=== PATIENT | male | born 1965 | race Caucasian/White ===

== ENCOUNTER 2021-03-10 14:18 | Inpatient (IN) | payer OTHER ==
[~2021-03-10] VITALS: Ht 177.8 cm; Wt 55.6 kg
[~2021-03-10 14:18] MED LIST: BISACODYL 10 MG SUPP (DULCOLAX) PR PRN; CALCIUM CARBONATE 500 MG (TUMS) TAB.CHEW PO PRN; FLEET ENEMA ADULT 1 EA BTL PR PRN; LACTULOSE SYRUP 10GM/15ML (ENULOSE) 30ML UDC PO PRN; LOPERAMIDE 2 MG (IMODIUM) TABLET PO PRN; MELATONIN 3 MG TABLET PO PRN; ONDANSETRON 4 MG (ZOFRAN) ORAL DISSOLVE TAB PO PRN; guaiFENesin/CODEINE (ROBITUSSIN AC) 10ML UDC PO PRN
[2021-03-10] MEDS ORDERED: TRM50T PO (14:26)
[2021-03-10] MEDS ORDERED: ZOLP5TAB PO (14:26)
[2021-03-10] MEDS ORDERED: OXC5T PO (14:26)
[2021-03-10] MEDS ORDERED: NSTR15C TOP (14:26)
[2021-03-10] MEDS ORDERED: MELA5TAB14 PO (14:26)
[2021-03-10 14:35] VITALS: BP 109/75
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
[2021-03-10] MEDS: polyethylene glycoL POWDER 17 GM (MIRALAX) PACK PO SCH ×2 (18:40→19:55)
[2021-03-10] MEDS: SENNA W/DOCUSATE (SENOKOT S) TABLET PO SCH ×2 (18:40→19:57)
[2021-03-10] MEDS: DOCUSATE SODIUM 100 MG (COLACE) CAP PO SCH ×2 (18:40→19:55)
[2021-03-10] MEDS: MELATONIN 10 MG TABLET PO SCH (19:55)
[2021-03-10] MEDS: BETAMETHASONE/CLOTRIM CREAM (LOTRISONE) 45 GM TP SCH (19:56)
[2021-03-10 20:03] VITALS: BP 113/79
[2021-03-11 06:13] LABS: BASOPHILS % (AUTO) 1 % (0-10); EOSINOPHILS # (AUTO) 0.2 10^3/uL (0.0-0.3); EOSINOPHILS % (AUTO) 3 % (0-10); HEMATOCRIT 34 % (40-54); HEMOGLOBIN 10.6 g/dL (13.3-17.7); LYMPHOCYTES # (AUTO) 1.6 10^3/uL (1.0-4.0); LYMPHOCYTES % (AUTO) 24 % (12-44); MEAN CORPUSCULAR HEMOGLOBIN 29 pg (25-34); MEAN CORPUSCULAR HGB CONC 31 g/dL (32-36); MEAN CORPUSCULAR VOLUME 93 fL (80-99); MEAN PLATELET VOLUME 10.2 fL (9.0-12.2); MONOCYTES # (AUTO) 0.7 10^3/uL (0.0-1.0); MONOCYTES % (AUTO) 11 % (0-12); NEUTROPHILS % (AUTO) 61 % (42-75); PLATELET COUNT 325 10^3/uL (130-400); WHITE BLOOD COUNT 6.5 10^3/uL (4.3-11.0)
[2021-03-11 06:28] LABS: ALBUMIN 3.3 GM/DL (3.2-4.5)
[2021-03-11 06:30] LABS: CALCIUM 9.5 MG/DL (8.5-10.1)
[2021-03-11 06:31] LABS: TOTAL PROTEIN 6.6 GM/DL (6.4-8.2)
[2021-03-11 06:33] LABS: BILIRUBIN,TOTAL 0.5 MG/DL (0.1-1.0)
[2021-03-11 06:35] LABS: CREATININE SERUM 0.64 MG/DL (0.60-1.30)
[2021-03-11 07:30] VITALS: BP 108/70
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
[2021-03-11] MEDS: BETAMETHASONE/CLOTRIM CREAM (LOTRISONE) 45 GM TP SCH ×2 (08:22→20:13)
[2021-03-11] MEDS: ENOXAPARIN 30 MG/0.3 ML (LOVENOX) SYR SC SCH (08:23)
[2021-03-11] MEDS: polyethylene glycoL POWDER 17 GM (MIRALAX) PACK PO SCH ×2 (09:00→21:00)
[2021-03-11] MEDS: DOCUSATE SODIUM 100 MG (COLACE) CAP PO SCH ×2 (09:00→21:00)
[2021-03-11] MEDS: SENNA W/DOCUSATE (SENOKOT S) TABLET PO SCH ×2 (09:00→21:00)
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
[2021-03-11 20:00] VITALS: BP 107/68
[2021-03-11] MEDS: MELATONIN 10 MG TABLET PO SCH (20:12)
[2021-03-11] MEDS: ZOLPIDEM 5 MG (AMBIEN) TAB PO PRN (20:12)
[2021-03-12] MEDS: ALPRAZolam 0.25 MG (XANAX) TAB PO PRN (03:31)
[2021-03-12 08:00] VITALS: BP 106/57
[2021-03-12] MEDS: DOCUSATE SODIUM 100 MG (COLACE) CAP PO SCH ×2 (08:35→20:48)
[2021-03-12] MEDS: ENOXAPARIN 30 MG/0.3 ML (LOVENOX) SYR SC SCH (08:35)
[2021-03-12] MEDS: polyethylene glycoL POWDER 17 GM (MIRALAX) PACK PO SCH ×2 (08:36→21:03)
[2021-03-12] MEDS: SENNA W/DOCUSATE (SENOKOT S) TABLET PO SCH ×2 (08:36→20:48)
[2021-03-12] MEDS: BETAMETHASONE/CLOTRIM CREAM (LOTRISONE) 45 GM TP SCH ×2 (08:37→20:49)
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
--- NOTE | 2021-03-12 12:55 | Physical Therapy Daily Note ---
PT Daily Note-Current Subjective Patient in bed pre tx, agrees to PT, states he doesn't have much pain right now. Will be co-treating with OT due to poor patient mobility, strength, endurance, complicated weight bearing status, coordinate UE and LE during activity, safety and reduce risk of falls. Appearance Patient in recliner post tx with nurse call, phone, tray, all needs met. Mental Status Patient Orientation: Person, Place, Situation Transfers SCALE: Activities may be completed with or without assistive devices. 9-Cthyaggjsw-nlxcyff completes the activity by him/herself with no assistance from a helper. 5-Set-up or Clean-up Assistance-helper sets up or cleans up; patient completes activity. [place] assists only prior to or following the activity. 4-Supervision or Touching Assistance-helper provides verbal cues and/or touching/steadying and/or contact guard assistance as patient completes activity. Assistance may be provided throughout the activity or intermittently. 3-Partial/Moderate Assistance-helper does LESS THAN HALF the effort. [place] lifts, holds or supports trunk or limbs, but provides less than half the effort. 2-Substantial/Maximal Assistance-helper does MORE THAN HALF the effort. [place] lifts or holds trunk or limbs and provides more than half the effort. 9-Ojkqqmcyh-zuuoja does ALL the effort. Patient does none of the effort to complete the activity. Or, the assistance of 2 or more helpers is required for the patient to complete the activity. If activity was not attempted, code reason: 7-Patient Refused. 9-Not Applicable-not attempted and the patient did not perform the activity before the current illness, exacerbation or injury. 10-Not Attempted due to Environmental Limitations-(lack of equipment, weather restraints, etc.). 88-Not Attempted due to Medical Conditions or Safety Concerns. Roll Left & Right (QC): 6 Lying to Sitting/Side of Bed(Q: 6 Sit to Stand (QC): 2 Chair/Bah-ty-[place]exie Xfer(QC): 2 Transfer to using a platform walker, it is very awkward. He is taken to the restroom for a sponge bath, needs to stand a couple of times (max assist) for pants don/doff. Then practice WC mobility. After getting back to his room performed a stand pivot with max assist to the recliner. Weight Bearing Right Lower Extremity: Right Weight Bearing/Tolerated Left Lower Extremity: Left Non Weight Bearing NWB LLE AND LUE; MAY WEIGHT-BEAR THROUGH ELBOW ON RUE. WBAT ON RLE. Wheelchair Training Does the Pt Use a Wheelchair?: Yes Wheel 50 ft with 2 turns (QC): 4 Wheel 150 ft (QC): 4 Type of Wheelchair: Manual 200', propels the WC backward using his right leg Treatments PT performed bed mobility and transfers, standing for dressing, WC mobility, safety and positioning during bathing, OT performed bathing, dressing, UE positioning and safety during activity Assessment Current Status: Poor Progress Patient is very limited on what he can do in rehab due to his weight bearing restrictions. PT Short Term Goals Short Term Goals Time Frame: Mar 25, 2021 Roll Left & Right: 6 Sit to lyin Lying to sitting on side of be: 6 Sit to stand: 4 Chair/edf-ov-wpfch transfer: 4 Toilet transfer: 4 Wheel 50ft w/2 turns: 4 Wheel 150 feet: 4 PT Assessment Nurse Practitioner Goals Mcc Goals PT Mcc Goals Time Frame: Apr 08, 2021 Roll Left & Right (QC): 6 Sit to Lying (QC): 6 Lying-Sitting on Side/Bed(QC): 6 Sit to Stand (QC): 6 Chair/Pdy-kw-Uazmi Xfer(QC): 6 Toilet Transfer (QC): 6 Car Transfer (QC): 6 Does the Patient Walk: No and Walking Goal NOT indicated Walk 10 feet (QC): 88 Walk 50ft with 2 Turns (QC): 88 Walk 150 ft (QC): 88 Walking 10ft on Uneven Surface: 88 1 Step (curb) (QC): 88 4 Steps (QC): 88 12 Steps (QC): 88 Picking up an Object (QC): 88 Wheel 50 feet with 2 turns (QC: 6 Type: Manual Wheel 150 feet: 6 PT Plan Problem List Problem List: Activity Tolerance, Functional Strength, Safety, Balance, Gait, Transfer, Bed Mobility, ROM Treatment/Plan Treatment Plan: Continue Plan of Care Treatment Plan: Bed Mobility, Education, Functional Activity Krystin, Functional Strength, Group Therapy, Gait, Safety, Therapeutic Exercise, Transfers Treatment Duration: Apr 08, 2021 Frequency: 6 times per week Estimated Hrs Per Day: 1.5 hours per day Patient and/or Family Agrees t: Yes Safety Risks/Education Patient Education: Transfer Techniques, Reviewed Precautions, Correct Positioning, W/C Management, Safety Issues Teaching Recipient: Patient Teaching Methods: Demonstration, Discussion Response to Teaching: Reinforcement Needed Time/GCodes Time In: 1100 Time Out: 1200 Total Billed Treatment Time: 60 Total Billed Treatment 1 visit FA 60' STONEY HOOPER PT Mar 12, 2021 12:55
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
--- NOTE | 2021-03-12 13:52 | Physical Therapy Daily Note ---
PT Daily Note-Current Subjective Patient in recliner pre tx, agrees to PT, has no complaints of pain. Appearance Patient in recliner post tx with nurse call, phone, tray, all needs met. Mental Status Patient Orientation: Person, Place, Situation Transfers SCALE: Activities may be completed with or without assistive devices. 2-Yrteimsxgq-oyjurju completes the activity by him/herself with no assistance from a helper. 5-Set-up or Clean-up Assistance-helper sets up or cleans up; patient completes activity. [place] assists only prior to or following the activity. 4-Supervision or Touching Assistance-helper provides verbal cues and/or bobbi whitney/steadying and/or contact guard assistance as patient completes activity. Assistance may be provided throughout the activity or intermittently. 3-Partial/Moderate Assistance-helper does LESS THAN HALF the effort. [place] lifts, holds or supports trunk or limbs, but provides less than half the effort. 2-Substantial/Maximal Assistance-helper does MORE THAN HALF the effort. [place] lifts or holds trunk or limbs and provides more than half the effort. 3-Qvvkcqoxx-agchqs does ALL the effort. Patient does none of the effort to complete the activity. Or, the assistance of 2 or more helpers is required for the patient to complete the activity. If activity was not attempted, code reason: 7-Patient Refused. 9-Not Applicable-not attempted and the patient did not perform the activity before the current illness, exacerbation or injury. 10-Not Attempted due to Environmental Limitations-(lack of equipment, weather restraints, etc.). 88-Not Attempted due to Medical Conditions or Safety Concerns. Weight Bearing Right Lower Extremity: Right Weight Bearing/Tolerated Left Lower Extremity: Left Non Weight Bearing NWB LLE AND LUE; MAY WEIGHT-BEAR THROUGH ELBOW ON RUE. WBAT ON RLE. Exercises Supine Ex: Ankle pumps (RLE only), Quad Set, Glut sets, Heel Slides (RLE only), Short Arc Quads, Straight leg raise (AAROM), Hip abd/add Supine Reps: 20 Seated Therapy Exercises: Long arc quads, Hip flexion Seated Reps: 20 right manual ankle stretching Treatments stretching/ROM Assessment Current Status: Fair Progress Patient has a right ankle plantarflexion contracture. PT Short Term Goals Short Term Goals Time Frame: Mar 25, 2021 Roll Left & Right: 6 Sit to lyin Lying to sitting on side of be: 6 Sit to stand: 4 Chair/kki-et-rzjuy transfer: 4 Toilet transfer: 4 Wheel 50ft w/2 turns: 4 Wheel 150 feet: 4 PT Environmental Technical Officer Goals Environmental Technical Officer Goals PT Longterm Goals Time Frame: Apr 08, 2021 Roll Left & Right (QC): 6 Sit to Lying (QC): 6 Lying-Sitting on Side/Bed(QC): 6 Sit to Stand (QC): 6 Chair/Ulr-qx-Xtdqz Xfer(QC): 6 Toilet Transfer (QC): 6 Car Transfer (QC): 6 Does the Patient Walk: No and Walking Goal NOT indicated Walk 10 feet (QC): 88 Walk 50ft with 2 Turns (QC): 88 Walk 150 ft (QC): 88 Walking 10ft on Uneven Surface: 88 1 Step (curb) (QC): 88 4 Steps (QC): 88 12 Steps (QC): 88 Picking up an Object (QC): 88 Wheel 50 feet with 2 turns (QC: 6 Type: Manual Wheel 150 feet: 6 PT Plan Problem List Problem List: Activity Tolerance, Functional Strength, Safety, Balance, Gait, Transfer, Bed Mobility, ROM Treatment/Plan Treatment Plan: Continue Plan of Care Treatment Plan: Bed Mobility, Education, Functional Activity Krystin, Functional Strength, Group Therapy, Gait, Safety, Therapeutic Exercise, Transfers Treatment Duration: Apr 08, 2021 Frequency: 6 times per week Estimated Hrs Per Day: 1.5 hours per day Patient and/or Family Agrees t: Yes Safety Risks/Education Patient Education: Correct Positioning, Safety Issues Teaching Recipient: Patient Teaching Methods: Demonstration, Discussion Response to Teaching: Reinforcement Needed Time/GCodes Time In: 1330 Time Out: 1400 Total Billed Treatment Time: 30 Total Billed Treatment 1 visit EX 30' STONEY HOOPER PT Mar 12, 2021 13:52
--- NOTE | 2021-03-12 15:54 | Diagnostic Imaging Report ---
INDICATION: Wound infection of the left stump. TIME OF EXAM: 02:50 p.m. FINDINGS: Two views of the left knee demonstrate intramedullary gucci and numerous screws transfixing the comminuted and impacted distal femur fracture. Hardware appears to be intact without fracture or loosening. There is also an obliquely oriented fracture of the proximal fibula. Proximal tibia appears intact. No joint effusion is identified. No soft tissue gas is identified. IMPRESSION: Postsurgical and post-traumatic changes to the left knee. Dictated by: Dictated on workstation # [id number]
--- NOTE | 2021-03-12 15:59 | Diagnostic Imaging Report ---
INDICATION: Wound infection of the left lower extremity stump. TIME OF EXAM: 2:45 p.m. FINDINGS: Frontal and lateral views of the left femur were obtained. Alignment at the left hip is normal. Alignment at the knee is normal. There is an intramedullary gucci with proximal distal screws present. Severely comminuted impacted distal femur fracture is seen. Alignment is near-anatomic. No other fractures are identified. IMPRESSION: Postoperative changes of ORIF involving comminuted distal femur fracture. Dictated by: Dictated on workstation # [id number]
--- NOTE | 2021-03-12 16:00 | Diagnostic Imaging Report ---
INDICATION: Wound infection of left stump. TIME OF EXAM: 2:51 PM 2 views left tibia and fibula were obtained. Alignment of the knee is normal. There are postoperative changes of ziefm-tic-lrft amputation. Resection margins appear to be smooth. No bony destructive changes are seen to suggest osteomyelitis. There is an obliquely oriented fracture of the proximal fibula. Hardware transfixes the comminuted impacted distal femur fracture. Multiple skin eneida at the stump are noted. IMPRESSION: Postop changes. No bony destructive changes are identified to suggest osteomyelitis. Dictated by: Dictated on workstation # [id number]
[2021-03-12] MEDS: DOXYCYCLINE 100 MG (VIBRAMYCIN) TABLET PO SCH (16:12)
[2021-03-12 20:15] VITALS: BP 104/70
[2021-03-12] MEDS: MELATONIN 10 MG TABLET PO SCH (20:48)
[2021-03-12] MEDS: MUPIROCIN 2% OINT 22 GM (BACTROBAN) TUBE TOP SCH (21:03)
[2021-03-13] MEDS: ZOLPIDEM 5 MG (AMBIEN) TAB PO PRN (00:02)
[2021-03-13] MEDS: ALPRAZolam 0.25 MG (XANAX) TAB PO PRN (04:19)
[2021-03-13] MEDS: DOXYCYCLINE 100 MG (VIBRAMYCIN) TABLET PO SCH ×2 (06:32→17:18)
[2021-03-13 08:00] VITALS: BP 98/67
[2021-03-13] MEDS: ENOXAPARIN 30 MG/0.3 ML (LOVENOX) SYR SC SCH (08:32)
[2021-03-13] MEDS: DOCUSATE SODIUM 100 MG (COLACE) CAP PO SCH ×2 (08:32→19:43)
[2021-03-13] MEDS: polyethylene glycoL POWDER 17 GM (MIRALAX) PACK PO SCH ×2 (08:32→19:43)
[2021-03-13] MEDS: SENNA W/DOCUSATE (SENOKOT S) TABLET PO SCH ×2 (08:32→19:43)
[2021-03-13] MEDS: MUPIROCIN 2% OINT 22 GM (BACTROBAN) TUBE TOP SCH ×2 (08:33→20:46)
[2021-03-13] MEDS: BETAMETHASONE/CLOTRIM CREAM (LOTRISONE) 45 GM TP SCH ×2 (08:33→20:10)
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
--- NOTE | 2021-03-13 11:25 | Occupational Ther Daily Note ---
OT Current Status-Daily Note Subjective Pt reports pain as 3/10, pain meds given prior to OT arrival. Appearance Pt left supine in bed, all needs within reach. Mental Status/Objective Patient Orientation: Person, Time, Situation ADL-Treatment Therapy Code Descriptions/Definitions Functional [place] Measure: 0=Not Assessed/NA 4=Minimal Assistance 1=Total Assistance 5=Supervision or Setup 2=Maximal Assistance 6=Modified [place] 3=Moderate Assistance 7=Complete IndependenceSCALE: Activities may be completed with or without assistive devices. 3-Logfdbqpso-nmwmvxx completes the activity by him/herself with no assistance from a helper. 5-Set-up or Clean-up Assistance-helper sets up or cleans up; patient completes activity. [place] assists only prior to or following the activity. 4-Supervision or Touching Assistance-helper provides verbal cues and/or touching/steadying and/or contact guard assistance as patient completes activity . Assistance may be provided throughout the activity or intermittently. 3-Partial/Moderate Assistance-helper does LESS THAN HALF the effort. [place] lifts, holds or supports trunk or limbs, but provides less than half the effort. 2-Substantial/Maximal Assistance-helper does MORE THAN HALF the effort. [place] lifts or holds trunk or limbs and provides more than half the effort. 3-Ujmrjvoai-mhmkcz does ALL the effort. Patient does none of the effort to complete the activity. Or, the assistance of 2 or more helpers is required for the patient to complete the activity. If activity was not attempted, code reason: 7-Patient Refused. 9-Not Applicable-not attempted and the patient did not perform the activity before the current illness, exacerbation or injury. 10-Not Attempted due to Environmental Limitations-(lack of equipment, weather restraints, etc.). 88-Not Attempted due to Medical Conditions or Safety Concerns. Bathing Location: L Upper Leg, R Upper Leg, Buttocks, Perineal Area Lower Body Dressing (QC): 4 On/Off Footwear: 3 Pt agreeable to practice donning/doffing clothing at bed level due to inability to stand and perform functional tasks without assist x2. OT introduced and instructed pt on use of city supervisor and sock aid for LB dressing. Post instruction pt was able to doff pants with use of city supervisor and extra time. Cues for preferred method to ease task. With extra time/effort he was able to thread RLE and L residual limb with use of city supervisor while in long sitting. Pt fatigues easily in long sitting and often requires trunk support on HOB bed. Verbal cues for sidel belle in order to manage clothing over hips. Post cues, pt able to perform with extra time. He sat EOB to don sock. Min-mod a to manage sock onto tool, pt able to manage over foot. Due to R knee pain, pt unable to flex knee or position correctly during functional tasks/transfers. Education OT Patient Education: Correct positioning, Disease process, Energy conservation, Instructions don/doff splint/brace, Modified ADL techniques, Progress toward Goal/Update tx plan, Purpose of tx/functional activities, Reviewed precautions, Rehab process, Safety issues, Transfer techniques, Use of adapted equipment, W/C management Teaching Recipient: Patient Teaching Methods: Demonstration Response to Teaching: Verbalize Understanding, Return Demonstration, Reinforcement Needed OT Short Term Goals Short Term Goals Time Frame: Mar 26, 2021 Eatin Oral hygiene: 4 Toileting hygiene: 3 Shower/bathe self: 3 Upper body dressin Lower body dressin Putting on/taking off footwear: 3 OT Halfway Goals Photographic Supervisor Goals Time Frame: Apr 06, 2021 Eating (QC): 6 Oral Hygiene (QC): 5 Toileting Hygiene (QC): 4 Shower/Bathe Self (QC): 4 Upper Body Dressing (QC): 5 Lower Body Dressing (QC): 4 On/Off Footwear (QC): 4 1=Demonstrate adherence to instructed precautions during ADL tasks. 2=Patient will verbalize/demonstrate understanding of assistive devices/modifications for ADL. 3=Patient will improve strength/tolerance for activity to enable patient to perform ADL's. OT Education/Plan Problem List/Assessment Assessment: Decreased Activ Tolerance, Decreased Safety Aware, Decreased UE Strength, Dependent Transfers, Impaired Coordination, Impaired Funct Balance, Impaired I ADL's, Impaired Self-Care Skills, Restricted Funct UE ROM Discharge Recommendations Plan/Recommendations: Continue POC Treatment Plan/Plan of Care Treatment,Training & Education: Yes Patient would benefit from OT for education, treatment and training to promote independence in ADL's, mobility, safety and/or upper extremity function for ADL's. Plan of Care: ADL Retraining, Functional Mobility, Group Exercise/Act as Ind, Orthotic Fitting/Training, UE Funct Exercise/Act, W/C Management Training Treatment Duration: Apr 06, 2021 Frequency: At least 5 of 7 days/Wk (IRF) Estimated Hrs Per Day: 1.5 hours per day Agreement: Yes Rehab Potential: Fair Time/GCodes Start Time: 09:00 Stop Time: 09:40 Total Time Billed (hr/min): 40 Billed Treatment Time 1 visit, ADLs x3 Rukhsana Anderson OT Mar 13, 2021 11:25
--- NOTE | 2021-03-13 11:43 | Physical Therapy Daily Note ---
PT Daily Note-Current Subjective Patient in bed pre tx, agrees to PT, has 4/10 pain and requests pain meds, nurse notified and he got pain meds. Will be co-treating with OT for part of tx due to poor patient mobility, strength, endurance, complicated weight bearing status, coordinate UE and LE during activity, safety and reduce risk of falls. Appearance Patient in recliner post tx with nurse call, phone, tray, all needs met. Mental Status Patient Orientation: Person, Place, Situation Transfers SCALE: Activities may be completed with or without assistive devices. 1-Nncfmhvbsi-xtvtehf completes the activity by him/herself with no assistance from a helper. 5-Set-up or Clean-up Assistance-helper sets up or cleans up; patient completes activity. [place] assists only prior to or following the activity. 4-Supervision or Touching Assistance-helper provides verbal cues and/or touching/steadying and/or contact guard assistance as patient completes activity. Assistance may be provided throughout the activity or intermittently. 3-Partial/Moderate Assistance-helper does LESS THAN HALF the effort. [place] lifts, holds or supports trunk or limbs, but provides less than half the effort. 2-Substantial/Maximal Assistance-helper does MORE THAN HALF the effort. [place] lifts or holds trunk or limbs and provides more than half the effort. 5-Vchreplhk-tkxzib does ALL the effort. Patient does none of the effort to complete the activity. Or, the assistance of 2 or more helpers is required for the patient to complete the activity. If activity was not attempted, code reason: 7-Patient Refused. 9-Not Applicable-not attempted and the patient did not perform the activity before the current illness, exacerbation or injury. 10-Not Attempted due to Environmental Limitations-(lack of equipment, weather restraints, etc.). 88-Not Attempted due to Medical Conditions or Safety Concerns. Roll Left & Right (QC): 6 Lying to Sitting/Side of Bed(Q: 6 Sit to Stand (QC): 2 Chair/Ues-jt-Odomd Xfer(QC): 2 Weight Bearing Right Lower Extremity: Right Weight Bearing/Tolerated Left Lower Extremity: Left Non Weight Bearing NWB LLE AND LUE; MAY WEIGHT-BEAR THROUGH ELBOW ON RUE. WBAT ON RLE. Wheelchair Training Does the Pt Use a Wheelchair?: Yes Wheel 50 ft with 2 turns (QC): 4 Type of Wheelchair: Manual 120'x2, SBA, cues for obstacles, patient propels WC backward using his right leg. Exercises sit to stand x3 in parallel bars (not using arms), patient was able to stand on right leg with assist for about 30 sec each time. Patient is not able to stand up straight due to strength and he has a right ankle plantarflexion contracture. Patient is also not able to bend his right knee past about 80 degrees, he seems to have pretty tight quads now. Attempted to stand from the outside of the parallel bars using his right elbow for support but he couldn't do it. Also performed 3 sets of 10 of manually resisted right side leg press. Treatments PT performed bed mobility and transfers, standing, LE strengthening, OT performed UE positioning and safety during activity. Assessment Current Status: Poor Progress Patient really has no way to stand without somebody physically lifting him, he cannot use a slide board due to his UE weight bearing restrictions, he cannot use a standing frame due to his right knee pain with flexion, he cannot use a sit to stand machine because it squeezes his torso and he has a rib fx. PT Short Term Goals Short Term Goals Time Frame: Mar 25, 2021 Roll Left & Right: 6 Sit to lyin Lying to sitting on side of be: 6 Sit to stand: 4 Chair/dot-ma-phphi transfer: 4 Toilet transfer: 4 Wheel 50ft w/2 turns: 4 Wheel 150 feet: 4 PT Correction Goals Administrative Support Clerk Goals PT Administrative Support Clerk Goals Time Frame: Apr 08, 2021 Roll Left & Right (QC): 6 Sit to Lying (QC): 6 Lying-Sitting on Side/Bed(QC): 6 Sit to Stand (QC): 6 Chair/Dtj-td-Ktpsi Xfer(QC): 6 Toilet Transfer (QC): 6 Car Transfer (QC): 6 Does the Patient Walk: No and Walking Goal NOT indicated Walk 10 feet (QC): 88 Walk 50ft with 2 Turns (QC): 88 Walk 150 ft (QC): 88 Walking 10ft on Uneven Surface: 88 1 Step (curb) (QC): 88 4 Steps (QC): 88 12 Steps (QC): 88 Picking up an Object (QC): 88 Wheel 50 feet with 2 turns (QC: 6 Type: Manual Wheel 150 feet: 6 PT Plan Problem List Problem List: Activity Tolerance, Functional Strength, Safety, Balance, Gait, Transfer, Bed Mobility, ROM Treatment/Plan Treatment Plan: Continue Plan of Care Treatment Plan: Bed Mobility, Education, Functional Activity Krystin, Functional Strength, Group Therapy, Gait, Safety, Therapeutic Exercise, Transfers Treatment Duration: Apr 08, 2021 Frequency: 6 times per week Estimated Hrs Per Day: 1.5 hours per day Patient and/or Family Agrees t: Yes Safety Risks/Education Patient Education: Transfer Techniques, Reviewed Precautions, Correct Posit ioning, W/C Management, Safety Issues Teaching Recipient: Patient Teaching Methods: Demonstration, Discussion Response to Teaching: Reinforcement Needed Time/GCodes Time In: 1030 Time Out: 1115 Total Billed Treatment Time: 45 Total Billed Treatment 1 visit FA 45' co-treated from [id number], 24' STONEY HOOPER PT Mar 13, 2021 11:43
--- NOTE | 2021-03-13 11:54 | Occupational Ther Daily Note ---
OT Current Status-Daily Note Subjective Pt reports pain as 6/10 and states that meds were given just prior to OT arrival. Appearance Pt left with physical therapist in w/c. ADL-Treatment Therapy Code Descriptions/Definitions Functional [place] Measure: 0=Not Assessed/NA 4=Minimal Assistance 1=Total Assistance 5=Supervision or Setup 2=Maximal Assistance 6=Modified [place] 3=Moderate Assistance 7=Complete IndependenceSCALE: Activities may be completed with or without assistive devices. 6-Hpmitrrmpy-dluzchu completes the activity by him/herself with no assistance from a helper. 5-Set-up or Clean-up Assistance-helper sets up or cleans up; patient completes activity. [place] assists only prior to or following the activity. 4-Supervision or Touching Assistance-helper provides verbal cues and/or touching/steadying and/or contact guard assistance as patient completes activity. Assistance may be provided throughout the activity or intermittently. 3-Partial/Moderate Assistance-helper does LESS THAN HALF the effort. [place] lifts, holds or supports trunk or limbs, but provides less than half the effort. 2-Substantial/Maximal Assistance-helper does MORE THAN HALF the effort. [place] lifts or holds trunk or limbs and provides more than half the effort. 7-Xhjtwaslb-xlghcj does ALL the effort. Patient does none of the effort to complete the activity. Or, the assistance of 2 or more helpers is required for the patient to complete the activity. If activity was not attempted, code reason: 7-Patient Refused. 9-Not Applicable-not attempted and the patient did not perform the activity before the current illness, exacerbation or injury. 10-Not Attempted due to Environmental Limitations-(lack of equipment, weather restraints, etc.). 88-Not Attempted due to Medical Conditions or Safety Concerns. Other Treatment NWB LLE AND LUE; MAY WEIGHT-BEAR THROUGH ELBOW ON RUE. WBAT ON RLE. Co treat with physical therapy due to poor patient mobility, strength, e ndurance, complicated weight bearing status, coordination of UE and LE during activity, safety and high fall risk. Attempt at finding ways to stand while maintaining all WB restrictions. At this time, pt is unable to flex R knee enough to position properly for standing and is unable to stand without dep/max transfer. He is unable to use slide board due to UE WB restrictions and cannot use standing frame due to R knee pain with flexion. Attempted to stand from the outside of the parallel bars using his right elbow for support but pt was unable to perform due to pain. Focus remaining time on LE strengthening/stretching. Education OT Patient Education: Correct positioning, Disease process, Modified ADL techniques, Purpose of tx/functional activities, Reviewed precautions, Safety issues, Transfer techniques, W/C management Teaching Recipient: Patient Teaching Methods: Demonstration, Discussion Response to Teaching: Reinforcement Needed OT Short Term Goals Short Term Goals Time Frame: Mar 26, 2021 Eatin Oral hygiene: 4 Toileting hygiene: 3 Shower/bathe self: 3 Upper body dressin Lower body dressin Putting on/taking off footwear: 3 OT Chcf Goals Zoning Assistant Goals Time Frame: Apr 06, 2021 Eating (QC): 6 Oral Hygiene (QC): 5 Toileting Hygiene (QC): 4 Shower/Bathe Self (QC): 4 Upper Body Dressing (QC): 5 Lower Body Dressing (QC): 4 On/Off Footwear (QC): 4 1=Demonstrate adherence to instructed precautions during ADL tasks. 2=Patient will verbalize/demonstrate understanding of assistive devices/modifications for ADL. 3=Patient will improve strength/tolerance for activity to enable patient to perform ADL's. OT Education/Plan Problem List/Assessment Assessment: Decreased Activ Tolerance, Decreased Safety Aware, Decreased UE St rength, Dependent Transfers, Impaired Coordination, Impaired Funct Balance, Impaired I ADL's, Impaired Self-Care Skills, Restricted Funct UE ROM Discharge Recommendations Plan/Recommendations: Continue POC Therapy Discharge Recommendati: Post Acute OT Treatment Plan/Plan of Care Treatment,Training & Education: Yes Patient would benefit from OT for education, treatment and training to promote independence in ADL's, mobility, safety and/or upper extremity function for ADL's. Plan of Care: ADL Retraining, Functional Mobility, Group Exercise/Act as Ind, Orthotic Fitting/Training, UE Funct Exercise/Act, W/C Management Training Treatment Duration: Apr 06, 2021 Frequency: At least 5 of 7 days/Wk (IRF) Estimated Hrs Per Day: 1.5 hours per day Agreement: Yes Rehab Potential: Fair Time/GCodes Start Time: 10:40 Stop Time: 11:04 Total Time Billed (hr/min): 24 Billed Treatment Time 1 visit Rukhsana Calles OT Mar 13, 2021 11:54
--- NOTE | 2021-03-13 15:04 | Therapy Group Daily Note ---
Therapy Daily Group Note Patient Education Topic Other List Below (memory, ARU description/expectations) Exercises LE Seated Exercise, UE Exercise Session Ratio (pt:therapist): 4:1 Goal of Session: Education on ARU Expectations, Memory Strategies, UE/LE Strengthing Goal Met for this Session: Yes Pt Benefit of Group: Contributions to Others, F/U Use of Strategies @Home, Increased Functional Safety, Increased Functional Strength, Improved Cognition, Recognition of Peers, Socialization Other/Notes Pt transported via w/c to [facility] for OT/PT group. Group consisted of introductions (name, place living, favorite holiday), socialization, B UE/LE seated exercises, memory activity and education on memory strategies. Pt introduced self appropriately and actively listened to peers. Pt participated in group discussions and contributed to educational topic verbally/gestures. Pt acknowledge understanding of educational topics by giving personal strategies used. Pt able to complete memory activity matching game with 100% accuracy. After group, pt lying in bed with call light/phone in reach. All needs met in room. Start Time: 13:30 Stop Time: 14:50 Total Billed Treatment Time: 80 Total Billed Treatment 1-GRP DIMITRI LONDONO Mar 13, 2021 15:03
[2021-03-13 19:53] VITALS: BP 111/63
[2021-03-13] MEDS: MELATONIN 10 MG TABLET PO SCH (20:09)
[2021-03-14] MEDS: ALPRAZolam 0.25 MG (XANAX) TAB PO PRN (01:56)
[2021-03-14] MEDS: diphenhydrAMINE 25 MG TAB (BENADRYL) PO PRN (01:56)
[2021-03-14] MEDS: DOXYCYCLINE 100 MG (VIBRAMYCIN) TABLET PO SCH ×2 (06:01→16:06)
[2021-03-14 08:00] VITALS: BP 107/61
[2021-03-14] MEDS: polyethylene glycoL POWDER 17 GM (MIRALAX) PACK PO SCH ×2 (09:13→20:35)
[2021-03-14] MEDS: DOCUSATE SODIUM 100 MG (COLACE) CAP PO SCH ×2 (09:13→20:35)
[2021-03-14] MEDS: SENNA W/DOCUSATE (SENOKOT S) TABLET PO SCH ×2 (09:13→20:35)
[2021-03-14] MEDS: ENOXAPARIN 30 MG/0.3 ML (LOVENOX) SYR SC SCH (09:13)
[2021-03-14] MEDS: BETAMETHASONE/CLOTRIM CREAM (LOTRISONE) 45 GM TP SCH ×2 (09:18→20:32)
[2021-03-14] MEDS: MUPIROCIN 2% OINT 22 GM (BACTROBAN) TUBE TOP SCH ×2 (09:18→20:35)
[2021-03-14] MEDS: NICOTINE 21 MG (NICODERM) PATCH TD SCH (11:04)
--- NOTE | 2021-03-14 11:16 | Occupational Ther Daily Note ---
OT Current Status-Daily Note Subjective Pt reports better sleep, agreeable to treatment. Appearance Pt left supine in bed, all needs within reach. Mental Status/Objective Patient Orientation: Person, Situation ADL-Treatment Therapy Code Descriptions/Definitions Functional [place] Measure: 0=Not Assessed/NA 4=Minimal Assistance 1=Total Assistance 5=Supervision or Setup 2=Maximal Assistance 6=Modified [place] 3=Moderate Assistance 7=Complete IndependenceSCALE: Activities may be completed with or without assistive devices. 9-Ohspyahphw-sgsnhrg completes the activity by him/herself with no assistance from a helper. 5-Set-up or Clean-up Assistance-helper sets up or cleans up; patient completes activity. [place] assists only prior to or following the activity. 4-Supervision or Touching Assistance-helper provides verbal cues and/or touching/steadying and/or contact guard assistance as patient completes activity. Assistance may be provided throughout the activity or intermittently. 3-Partial/Moderate Assistance-helper does LESS THAN HALF the effort. [place] lifts, holds or supports trunk or limbs, but provides less than half the effort. 2-Substantial/Maximal Assistance-helper does MORE THAN HALF the effort. [place] lifts or holds trunk or limbs and provides more than half the effort. 6-Ktzlljizz-obrroy does ALL the effort. Patient does none of the effort to complete the activity. Or, the assistance of 2 or more helpers is required for the patient to complete the activity. If activity was not attempted, code reason: 7-Patient Refused. 9-Not Applicable-not attempted and the patient did not perform the activity before the current illness, exacerbation or injury. 10-Not Attempted due to Environmental Limitations-(lack of equipment, weather restraints, etc.). 88-Not Attempted due to Medical Conditions or Safety Concerns. OT to discuss with physician on bathing and if there are any restrictions. Pt would like to shower tomorrow if possible. Other Treatment Co treat with physical therapy due to poor patient mobility, strength, endurance, complicated weight bearing status, coordination of UE and LE during activity, safety and high fall risk. OT/PT Continue to Address ways to stand while maintaining all WB restrictions. At this time, pt is unable to flex R knee enough to position properly for standing and is unable to stand without max a. He is unable to use slide board due to UE WB restrictions and cannot use standing frame due to R knee pain with flexion. Attempt at squat pivot towards R side with pt using R elbow on far armrest of w/c. Min A x2 for safety with this method. More education/practice will be needed if this method is preferred. Pt participated in both UE/LE strengthening/AROM exercises. No resistance added to UE's secondary to being NWB. Elbow flexion LUE impaired, contracture?. Pt stood x3 with mod-max a from heightened surface. Goal to increase standing time with each bout. Standing times included: 0:15, 0:40, and 1:22. Heavy reliance on weightbearing through R elbow on platform walker when standing. Pt propelled w/c with use of RLE, min cues for w/c management/safety. Education OT Patient Education: Correct positioning, Disease process, Energy conservation, Exercise program, Modified ADL techniques, Progress toward Goal/Update tx plan, Purpose of tx/functional activities, Reviewed precautions, Rehab process, Safety issues, Transfer techniques, Use of adapted equipment, W/C management Teaching Recipient: Patient Teaching Methods: Demonstration, Discussion Response to Teaching: Verbalize Understanding, Return Demonstration, Reinforcement Needed OT Short Term Goals Short Term Goals Time Frame: Mar 26, 2021 Eatin Oral hygiene: 4 Toileting hygiene: 3 Shower/bathe self: 3 Upper body dressin Lower body dressin Putting on/taking off footwear: 3 OT Chcf Goals Upsetter Helper Goals Time Frame: Apr 06, 2021 Eating (QC): 6 Oral Hygiene (QC): 5 Toileting Hygiene (QC): 4 Shower/Bathe Self (QC): 4 Upper Body Dressing (QC): 5 Lower Body Dressing (QC): 4 On/Off Footwear (QC): 4 1=Demonstrate adherence to instructed precautions during ADL tasks. 2=Patient will verbalize/demonstrate understanding of assistive devices/modifications for ADL. 3=Patient will improve strength/tolerance for activity to enable patient to perform ADL's. OT Education/Plan Problem List/Assessment Assessment: Decreased Activ Tolerance, Decreased Safety Aware, Decreased UE Strength, Dependent Transfers, Impaired Coordination, Impaired Funct Balance, Impaired I ADL's, Impaired Self-Care Skills, Restricted Funct UE ROM Discharge Recommendations Plan/Recommendations: Continue POC Treatment Plan/Plan of Care Treatment,Training & Education: Yes Patient would benefit from OT for education, treatment and training to promote independence in ADL's, mobility, safety and/or upper extremity function for ADL's. Plan of Care: ADL Retraining, Functional Mobility, Group Exercise/Act as Ind, Orthotic Fitting/Training, UE Funct Exercise/Act, W/C Management Training Treatment Duration: Apr 06, 2021 Frequency: At least 5 of 7 days/Wk (IRF) Estimated Hrs Per Day: 1.5 hours per day Agreement: Yes Rehab Potential: Fair Time/GCodes Start Time: 10:00 Stop Time: 11:00 Total Time Billed (hr/min): 60 Billed Treatment Time 1 visit, FA x3 (40 min) EX (20min) Rukhsana Anderson OT Mar 14, 2021 11:16
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
--- NOTE | 2021-03-14 11:52 | Physical Therapy Daily Note ---
PT Daily Note-Current Subjective Patient sitting EOB pre tx, agrees to PT, has no complaints of pain. Will be co-treating with OT due to poor patient mobility, strength, endurance, complicated weight bearing status, coordinate UE and LE during activity, safety and reduce risk of falls. Appearance Patient in bed post tx with nurse call, phone, tray, all needs met. Mental Status Patient Orientation: Person, Place, Situation Transfers SCALE: Activities may be completed with or without assistive devices. 0-Ssbseetehq-qesvclm completes the activity by him/herself with no assistance from a helper. 5-Set-up or Clean-up Assistance-helper sets up or cleans up; patient completes activity. [place] assists only prior to or following the activity. 4-Supervision or Touching Assistance-helper provides verbal cues and/or touching/steadying and/or contact guard assistance as patient completes activi ty. Assistance may be provided throughout the activity or intermittently. 3-Partial/Moderate Assistance-helper does LESS THAN HALF the effort. [place] lifts, holds or supports trunk or limbs, but provides less than half the effort. 2-Substantial/Maximal Assistance-helper does MORE THAN HALF the effort. [place] lifts or holds trunk or limbs and provides more than half the effort. 9-Cktgrevds-bjxgxu does ALL the effort. Patient does none of the effort to complete the activity. Or, the assistance of 2 or more helpers is required for the patient to complete the activity. If activity was not attempted, code reason: 7-Patient Refused. 9-Not Applicable-not attempted and the patient did not perform the activity before the current illness, exacerbation or injury. 10-Not Attempted due to Environmental Limitations-(lack of equipment, weather restraints, etc.). 88-Not Attempted due to Medical Conditions or Safety Concerns. Sit to Stand (QC): 2 Chair/Vns-hc-Bovfp Xfer(QC): 2 Patient practiced sit to stand from a raised therapy table using a platform walker. Patient is able to bear weight on his right elbow, he used this and his right leg to stand (min assist) x3, patient was able to stand for about 40 seconds the first two times and 1 minute 40 seconds the last time. Patient had good weight bearing on right leg to stretch his ankle contracture. Patient transferred back to with a modified stand pivot transfer using his right elbow on the far WC armrest, he was pretty unsteady doing this and needed min assist. He was going from an elevated surface to a lower surface. He would not be able to do it from a low to high surface or even surfaces at the same height. Weight Bearing Right Lower Extremity: Right Weight Bearing/Tolerated Left Lower Extremity: Left Non Weight Bearing NWB LLE AND LUE; MAY WEIGHT-BEAR THROUGH ELBOW ON RUE. WBAT ON RLE. Wheelchair Training Does the Pt Use a Wheelchair?: Yes Wheel 50 ft with 2 turns (QC): 4 Wheel 150 ft (QC): 4 Type of Wheelchair: Manual 200'x2, patient pushes WC backward using right leg Exercises LAQ alternating for 5 min Treatments PT performed transfers, standing, WC mobility, LE strengthening and stretching, OT performed UE exercise, UE positioning and safety during activity. Assessment Current Status: Fair Progress slight improvement with sit to stand PT Short Term Goals Short Term Goals Time Frame: Mar 25, 2021 Roll Left & Right: 6 Sit to lyin Lying to sitting on side of be: 6 Sit to stand: 4 Chair/mvg-cj-altcs transfer: 4 Toilet transfer: 4 Wheel 50ft w/2 turns: 4 Wheel 150 feet: 4 PT Parent Partner Goals Long-Term Goals PT Parent Partner Goals Time Frame: Apr 08, 2021 Roll Left & Right (QC): 6 Sit to Lying (QC): 6 Lying-Sitting on Side/Bed(QC): 6 Sit to Stand (QC): 6 Chair/Kta-lq-Rvihq Xfer(QC): 6 Toilet Transfer (QC): 6 Car Transfer (QC): 6 Does the Patient Walk: No and Walking Goal NOT indicated Walk 10 feet (QC): 88 Walk 50ft with 2 Turns (QC): 88 Walk 150 ft (QC): 88 Walking 10ft on Uneven Surface: 88 1 Step (curb) (QC): 88 4 Steps (QC): 88 12 Steps (QC): 88 Picking up an Object (QC): 88 Wheel 50 feet with 2 turns (QC: 6 Type: Manual Wheel 150 feet: 6 PT Plan Problem List Problem List: Activity Tolerance, Functional Strength, Safety, Balance, Gait, Transfer, Bed Mobility, ROM Treatment/Plan Treatment Plan: Continue Plan of Care Treatment Plan: Bed Mobility, Education, Functional Activity Krystin, Functional Strength, Group Therapy, Gait, Safety, Therapeutic Exercise, Transfers Treatment Duration: Apr 08, 2021 Frequency: 6 times per week Estimated Hrs Per Day: 1.5 hours per day Patient and/or Family Agrees t: Yes Safety Risks/Education Patient Education: Transfer Techniques, Reviewed Precautions, Correct Positioning, W/C Management, Safety Issues Teaching Recipient: Patient Teaching Methods: Demonstration, Discussion Response to Teaching: Reinforcement Needed Time/GCodes Time In: 1000 Time Out: 1100 Total Billed Treatment Time: 60 Total Billed Treatment 1 visit EX 30' FA 30' co-treated for 60' STONEY HOOPER PT Mar 14, 2021 11:52
[2021-03-14] MEDS: DICLOFENAC 1% GEL 100 GM (VOLTAREN) TUBE TOP SCH ×2 (12:23→20:38)
--- NOTE | 2021-03-14 14:01 | Physical Therapy Daily Note ---
PT Daily Note-Current Subjective Pt in bed upon arrival and agrees to co-treat. co treat required d/t pt poor mobility, weakness, low activity tolerance, safety, and reduce risk of falls. Mental Status Patient Orientation: Person, Place, Situation Transfers SCALE: Activities may be completed with or without assistive devices. 4-Ockiqakzfo-hspsjko completes the activity by him/herself with no assistance from a helper. 5-Set-up or Clean-up Assistance-helper sets up or cleans up; patient completes activity. [place] assists only prior to or following the activity. 4-Supervision or Touching Assistance-helper provides verbal cues and/or touching/steadying and/or contact guard assistance as patient completes activity. Assistance may be provided throughout the activity or intermittently. 3-Partial/Moderate Assistance-helper does LESS THAN HALF the effort. [place] lifts, holds or supports trunk or limbs, but provides less than half the effort. 2-Substantial/Maximal Assistance-helper does MORE THAN HALF the effort. [place] lifts or holds trunk or limbs and provides more than half the effort. 0-Apmbuvtyz-kvweiz does ALL the effort. Patient does none of the effort to complete the activity. Or, the assistance of 2 or more helpers is required for the patient to complete the activity. If activity was not attempted, code reason: 7-Patient Refused. 9-Not Applicable-not attempted and the patient did not perform the activity before the current illness, exacerbation or injury. 10-Not Attempted due to Environmental Limitations-(lack of equipment, weather restraints, etc.). 88-Not Attempted due to Medical Conditions or Safety Concerns. Sit to Lying (QC): 5 Lying to Sitting/Side of Bed(Q: 5 Weight Bearing Right Lower Extremity: Right Weight Bearing/Tolerated Left Lower Extremity: Left Non Weight Bearing NWB LLE AND LUE; MAY WEIGHT-BEAR THROUGH ELBOW ON RUE. WBAT ON RLE. Exercises Seated Therapy Exercises: Biceps, Ankle pumps, Long arc quads, Hip flexion, Hip abd/add, Tricep Seated Reps: 10 Treatments Co-treat: OT focused on UE strengthening, positioning, and ROM. PT focused on LE strengthening/positioning/ROM, mobility, and sitting balance. Pt supine to sit and completes seated ex EOB, performing LE ex followed by UE ex w/ rest breaks as needed. Pt then completes sitting balance activity, weight shifting side to side while reaching w/ BUE to catch/throw ball. Pt then issued HEP for UE and LE ex, PT/OT explains/demonstrates ex to pt. Pt sit to supine and was left with all needs met, call light in hand. Assessment Current Status: Fair Progress Pt requires frequent rest breaks throughout tx. Pt overall increasing mobility, endurance, and strength PT Short Term Goals Short Term Goals Time Frame: Mar 25, 2021 Roll Left & Right: 6 Sit to lyin Lying to sitting on side of be: 6 Sit to stand: 4 Chair/nuc-cv-jeygn transfer: 4 Toilet transfer: 4 Wheel 50ft w/2 turns: 4 Wheel 150 feet: 4 PT [facility] Goals [facility] Goals PT [place] Program Coordinator Goals Time Frame: Apr 08, 2021 Roll Left & Right (QC): 6 Sit to Lying (QC): 6 Lying-Sitting on Side/Bed(QC): 6 Sit to Stand (QC): 6 Chair/Xcu-iu-Ngshp Xfer(QC): 6 Toilet Transfer (QC): 6 Car Transfer (QC): 6 Does the Patient Walk: No and Walking Goal NOT indicated Walk 10 feet (QC): 88 Walk 50ft with 2 Turns (QC): 88 Walk 150 ft (QC): 88 Walking 10ft on Uneven Surface: 88 1 Step (curb) (QC): 88 4 Steps (QC): 88 12 Steps (QC): 88 Picking up an Object (QC): 88 Wheel 50 feet with 2 turns (QC: 6 Type: Manual Wheel 150 feet: 6 PT Plan Treatment/Plan Treatment Plan: Continue Plan of Care Treatment Plan: Bed Mobility, Education, Functional Activity Krystin, Functional Strength, Group Therapy, Gait, Safety, Therapeutic Exercise, Transfers Treatment Duration: Apr 08, 2021 Frequency: 6 times per week Estimated Hrs Per Day: 1.5 hours per day Patient and/or Family Agrees t: Yes Time/GCodes Time In: 1330 Time Out: 1400 Total Billed Treatment Time: 30 Total Billed Treatment 1, Ex, NORI BURTON X RAY TECH Mar 14, 2021 14:01
--- NOTE | 2021-03-14 14:16 | Occupational Ther Daily Note ---
OT Current Status-Daily Note Subjective Pt. alert in bed. Pt. agrees to therapy. 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 4-Vlryirazvk-vcrhmwe completes the activity by him/herself with no assistance from a helper. 5-Set-up or Clean-up Assistance-helper sets up or cleans up; patient completes activity. [place] assists only prior to or following the activity. 4-Supervision or Touching Assistance-helper provides verbal cues and/or touching/steadying and/or contact guard assistance as patient completes activity. Assistance may be provided throughout the activity or intermittently. 3-Partial/Moderate Assistance-helper does LESS THAN HALF the effort. [place] lifts, holds or supports trunk or limbs, but provides less than half the effort. 2-Substantial/Maximal Assistance-helper does MORE THAN HALF the effort. [place] lifts or holds trunk or limbs and provides more than half the effort. 3-Zxiaiisxj-afyhzm does ALL the effort. Patient does none of the effort to complete the activity. Or, the assistance of 2 or more helpers is required for the patient to complete the activity. If activity was not attempted, code reason: 7-Patient Refused. 9-Not Applicable-not attempted and the patient did not perform the activity before the current illness, exacerbation or injury. 10-Not Attempted due to Environmental Limitations-(lack of equipment, weather restraints, etc.). 88-Not Attempted due to Medical Conditions or Safety Concerns. Other Treatment Co-Treat with PT ([id number]) PT focusing on LE strengthening, LE ROM, and bed mobility while OT focusing on UE strengthening, UE ROM, ability to perform functional tasks. Pt. participated in L UE strengthening ex's in all planes 10 reps 1 set using light resistance theraband. Skilled instruction necessary for modifications for single arm techniques of exs due to R UE in cast. See PT note for progress of LE. Pt. able to stay upright on EOB while catching a ball at various heights coming from multiple directions, see PT note for progress. Pt provided with HEP for UE and LE ex, PT/OT explains/demonstrates ex to Pt. Skilled instruction for these activities are to increase pt.'s ability to perform and participate in functional tasks of daily living. Pt. lying in bed call light/phone in reach. All needs met in room. Education OT Patient Education: Correct positioning, Exercise program, Home exercise program Teaching Recipient: Patient Teaching Methods: Demonstration, Discussion Response to Teaching: Verbalize Understanding, Return Demonstration, Reinforcement Needed OT Short Term Goals Short Term Goals Time Frame: Mar 26, 2021 Eatin Oral hygiene: 4 Toileting hygiene: 3 Shower/bathe self: 3 Upper body dressin Lower body dressin Putting on/taking off footwear: 3 OT Materials Engineering Technician Goals Custodial Goals Time Frame: Apr 06, 2021 Eating (QC): 6 Oral Hygiene (QC): 5 Toileting Hygiene (QC): 4 Shower/Bathe Self (QC): 4 Upper Body Dressing (QC): 5 Lower Body Dressing (QC): 4 On/Off Footwear (QC): 4 1=Demonstrate adherence to instructed precautions during ADL tasks. 2=Patient will verbalize/demonstrate understanding of assistive devices/modifications for ADL. 3=Patient will improve strength/tolerance for activity to enable patient to perform ADL's. OT Education/Plan Problem List/Assessment Assessment: Decreased Activ Tolerance, Decreased UE Strength, Impaired Bed Mobility, Impaired Coordination, Restricted Funct UE ROM Discharge Recommendations Plan/Recommendations: Continue POC Treatment Plan/Plan of Care Patient would benefit from OT for education, treatment and training to promote independence in ADL's, mobility, safety and/or upper extremity function for ADL's. Plan of Care: ADL Retraining, Functional Mobility, Group Exercise/Act as Ind, Orthotic Fitting/Training, UE Funct Exercise/Act, W/C Management Training Treatment Duration: Apr 06, 2021 Frequency: At least 5 of 7 days/Wk (IRF) Estimated Hrs Per Day: 1.5 hours per day Agreement: Yes Rehab Potential: Fair Time/GCodes Start Time: 13:30 Stop Time: 14:00 Total Time Billed (hr/min): 30 Billed Treatment Time 1 visit- EX 2 (30 min) Co-Treat with PT ([id number]) DIMITRI LONDONO Mar 14, 2021 14:16
[2021-03-14] MEDS: ZOLPIDEM 5 MG (AMBIEN) TAB PO PRN (20:32)
[2021-03-14] MEDS: MELATONIN 10 MG TABLET PO SCH (20:32)
[2021-03-14 20:36] VITALS: BP 105/65
[2021-03-15] MEDS: ALPRAZolam 0.25 MG (XANAX) TAB PO PRN (01:21)
[2021-03-15] MEDS: DOXYCYCLINE 100 MG (VIBRAMYCIN) TABLET PO SCH (06:22)
[2021-03-15] MEDS: ENOXAPARIN 30 MG/0.3 ML (LOVENOX) SYR SC SCH (07:31)
[2021-03-15] MEDS: BETAMETHASONE/CLOTRIM CREAM (LOTRISONE) 45 GM TP SCH ×2 (07:33→20:17)
[2021-03-15] MEDS: DICLOFENAC 1% GEL 100 GM (VOLTAREN) TUBE TOP SCH ×3 (07:33→20:19)
[2021-03-15] MEDS: NICOTINE 21 MG (NICODERM) PATCH TD SCH (07:34)
[2021-03-15] MEDS: NICOTINE PATCH REMOVAL TP SCH (07:38)
[2021-03-15 07:56] VITALS: BP 147/65
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
[2021-03-15] MEDS ORDERED: LIDOCAINE UROJET 2% GEL 10 ML PKG TOP ONE (10:30)
--- NOTE | 2021-03-15 11:00 | Physical Therapy Daily Note ---
PT Daily Note-Current Subjective Patient in bed pre tx, agrees to PT, has unrated pain in bottom. Will be co- treating with OT due to poor patient mobility, strength, endurance, complicated weight bearing status, coordinate UE and LE during activity, safety and reduce risk of falls. Appearance Patient in WC in room post tx to continue with OT Mental Status Patient Orientation: Person, Place, Situation Transfers SCALE: Activities may be completed with or without assistive devices. 2-Hkqiwyzrmi-opaummu completes the activity by him/herself with no assistance from a helper. 5-Set-up or Clean-up Assistance-helper sets up or cleans up; patient completes activity. [place] assists only prior to or following the activity. 4-Supervision or Touching Assistance-helper provides verbal cues and/or touching/steadying and/or contact guard assistance as patient completes activity. Assistance may be provided throughout the activity or intermittently. 3-Partial/Moderate Assistance-helper does LESS THAN HALF the effort. [place] lifts, holds or supports trunk or limbs, but provides less than half the effort. 2-Substantial/Maximal Assistance-helper does MORE THAN HALF the effort. [place] lifts or holds trunk or limbs and provides more than half the effort. 6-Kmhfcrsgg-nyqeal does ALL the effort. Patient does none of the effort to complete the activity. Or, the assistance of 2 or more helpers is required for the patient to complete the activity. If activity was not attempted, code reason: 7-Patient Refused. 9-Not Applicable-not attempted and the patient did not perform the activity before the current illness, exacerbation or injury. 10-Not Attempted due to Environmental Limitations-(lack of equipment, weather restraints, etc.). 88-Not Attempted due to Medical Conditions or Safety Concerns. Roll Left & Right (QC): 6 Lying to Sitting/Side of Bed(Q: 6 Sit to Stand (QC): 2 Chair/Ovy-bs-Disya Xfer(QC): 2 Patient sits on the side of the bed and then transfers to with max assist, OT gets patients pants down on the way, wheel to shower, max assist transfer to shower bench, patient needs a lot of preparation to waterproof his right arm and left leg. Patient showers, then transfers to , dresses, stands so OT can get pants pulled up. Weight Bearing Right Lower Extremity: Right Weight Bearing/Tolerated Left Lower Extremity: Left Non Weight Bearing NWB LLE AND LUE; MAY WEIGHT-BEAR THROUGH ELBOW ON RUE. WBAT ON RLE. Treatments PT performed bed mobility, transfers, standing and positioning and safety during dressing and bathing, OT performed dressing and bathing, UE positioning and safety during activity Assessment Current Status: Poor Progress slight improvement with sit to stand but still max assist PT Short Term Goals Short Term Goals Time Frame: Mar 25, 2021 Roll Left & Right: 6 Sit to lyin Lying to sitting on side of be: 6 Sit to stand: 4 Chair/jwt-iy-zfgxf transfer: 4 Toilet transfer: 4 Wheel 50ft w/2 turns: 4 Wheel 150 feet: 4 PT Telephone Solicitor Supervisor Goals Telephone Solicitor Supervisor Goals PT Telephone Solicitor Supervisor Goals Time Frame: Apr 08, 2021 Roll Left & Right (QC): 6 Sit to Lying (QC): 6 Lying-Sitting on Side/Bed(QC): 6 Sit to Stand (QC): 6 Chair/Wnt-mv-Zavmh Xfer(QC): 6 Toilet Transfer (QC): 6 Car Transfer (QC): 6 Does the Patient Walk: No and Walking Goal NOT indicated Walk 10 feet (QC): 88 Walk 50ft with 2 Turns (QC): 88 Walk 150 ft (QC): 88 Walking 10ft on Uneven Surface: 88 1 Step (curb) (QC): 88 4 Steps (QC): 88 12 Steps (QC): 88 Picking up an Object (QC): 88 Wheel 50 feet with 2 turns (QC: 6 Type: Manual Wheel 150 feet: 6 PT Plan Problem List Problem List: Activity Tolerance, Functional Strength, Safety, Balance, Gait, Transfer, Bed Mobility, ROM Treatment/Plan Treatment Plan: Continue Plan of Care Treatment Plan: Bed Mobility, Education, Functional Activity Krystin, Functional Strength, Group Therapy, Gait, Safety, Therapeutic Exercise, Transfers Treatment Duration: Apr 08, 2021 Frequency: 6 times per week Estimated Hrs Per Day: 1.5 hours per day Patient and/or Family Agrees t: Yes Safety Risks/Education Patient Education: Transfer Techniques, Reviewed Precautions, Correct Positioning, W/C Management, Reviewed Don/Doff Brace, Safety Issues Teaching Recipient: Patient Teaching Methods: Demonstration, Discussion Response to Teaching: Reinforcement Needed Time/GCodes Time In: 1000 Time Out: 1100 Total Billed Treatment Time: 60 Total Billed Treatment 1 visit FA 60' co-treated for 60' STONEY HOOPER PT Mar 15, 2021 11:00
--- NOTE | 2021-03-15 11:32 | Occupational Ther Daily Note ---
OT Current Status-Daily Note Subjective Pt reports not having a shower or shave in over a month. Pt grateful post adls. Appearance Pt left sitting in w/c, all needs within reach at end of session. ADL-Treatment Therapy Code Descriptions/Definitions Functional [place] Measure: 0=Not Assessed/NA 4=Minimal Assistance 1=Total Assistance 5=Supervision or Setup 2=Maximal Assistance 6=Modified [place] 3=Moderate Assistance 7=Complete IndependenceSCALE: Activities may be completed with or without assistive devices. 9-Evrdqzlymm-glrufwi completes the activity by him/herself with no assistance from a helper. 5-Set-up or Clean-up Assistance-helper sets up or cleans up; patient completes activity. [place] assists only prior to or following the activity. 4-Supervision or Touching Assistance-helper provides verbal cues and/or touching/steadying and/or contact guard assistance as patient completes activity. Assistance may be provided throughout the activity or intermittently. 3-Partial/Moderate Assistance-helper does LESS THAN HALF the effort. [place] lifts, holds or supports trunk or limbs, but provides less than half the effort. 2-Substantial/Maximal Assistance-helper does MORE THAN HALF the effort. [place] lifts or holds trunk or limbs and provides more than half the effort. 7-Xmetkqabn-xcjhke does ALL the effort. Patient does none of the effort to complete the activity. Or, the assistance of 2 or more helpers is required for the patient to complete the activity. If activity was not attempted, code reason: 7-Patient Refused. 9-Not Applicable-not attempted and the patient did not perform the activity before the current illness, exacerbation or injury. 10-Not Attempted due to Environmental Limitations-(lack of equipment, weather restraints, etc.). 88-Not Attempted due to Medical Conditions or Safety Concerns. Shower/Bathe Self (QC): 3 Upper Body Dressing (QC): 4 Lower Body Dressing (QC): 1 On/Off Footwear: 3 NWB LLE AND LUE; MAY WEIGHT-BEAR THROUGH ELBOW ON RUE. WBAT ON RLE. Co treat with physical therapy for part of session due to poor patient mobility, strength, endurance, complicated weight bearing status, coordination of UE and LE during activity, safety and high fall risk. Shower performed; 100% completed in sitting. Prior to shower, OT/PT covered L residual limb and R cast with plastic. dressings/cast c/d/i post shower. Pt continues to require Max a to stand pivot to/from different surfaces. While in shower, Ot instructed pt on multiple compensatory techniques such as lateral pelvic leans in order to wash buttocks and one handed technique to wash L axilla. Min a still needed for thoroughness of L axilla and mod a to reach/wash R side of buttocks. Pt able to bend at waist to reach R ankle, assist needed to wash foot. Dressing tasks performed seated in w/c. Reminder on correct use of sales clerk supervisor in order to thread RLE, min A still needed. Dep to manage pants over hips with second person maintaining pt's balance with max a. He sat in w/c to shave, mod a needed due to fatigue and limited pressure when reaching across to R side of face with L hand. Pt is R handed but has limited fire management officer to perform task with dominant hand. Education OT Patient Education: Correct positioning, Energy conservation, Modified ADL techniques, Progress toward Goal/Update tx plan, Purpose of tx/functional activities, Reviewed precautions, Rehab process, Safety issues, Transfer t echniques, Use of adapted equipment Teaching Recipient: Patient Teaching Methods: Demonstration, Discussion Response to Teaching: Verbalize Understanding, Return Demonstration, Reinforcement Needed OT Short Term Goals Short Term Goals Time Frame: Mar 26, 2021 Eatin Oral hygiene: 4 Toileting hygiene: 3 Shower/bathe self: 3 Upper body dressin Lower body dressin Putting on/taking off footwear: 3 OT Communication Lecturer Goals Communication Lecturer Goals Time Frame: Apr 06, 2021 Eating (QC): 6 Oral Hygiene (QC): 5 Toileting Hygiene (QC): 4 Shower/Bathe Self (QC): 4 Upper Body Dressing (QC): 5 Lower Body Dressing (QC): 4 On/Off Footwear (QC): 4 1=Demonstrate adherence to instructed precautions during ADL tasks. 2=Patient will verbalize/demonstrate understanding of assistive devices/modifications for ADL. 3=Patient will improve strength/tolerance for activity to enable patient to perform ADL's. OT Education/Plan Problem List/Assessment Assessment: Decreased Activ Tolerance, Decreased Safety Aware, Decreased UE Strength, Dependent Transfers, Impaired Coordination, Impaired Funct Balance, Impaired I ADL's, Impaired Self-Care Skills, Restricted Funct UE ROM Discharge Recommendations Plan/Recommendations: Continue POC Treatment Plan/Plan of Care Treatment,Training & Education: Yes Patient would benefit from OT for education, treatment and training to promote independence in ADL's, mobility, safety and/or upper extremity function for ADL's. Plan of Care: ADL Retraining, Functional Mobility, Group Exercise/Act as Ind, Orthotic Fitting/Training, UE Funct Exercise/Act, W/C Management Training Treatment Duration: Apr 06, 2021 Frequency: At least 5 of 7 days/Wk (IRF) Estimated Hrs Per Day: 1.5 hours per day Agreement: Yes Rehab Potential: Fair Time/GCodes Start Time: 10:00 Stop Time: 11:30 Total Time Billed (hr/min): 90 Billed Treatment Time 1 visit, ADL x6 Co treat with PT for 60 min. ([id number]) Rukhsana Anderson OT Mar 15, 2021 11:32
[2021-03-15] MEDS: MUPIROCIN 2% OINT 22 GM (BACTROBAN) TUBE TOP SCH ×2 (12:02→20:19)
--- NOTE | 2021-03-15 14:00 | Physical Therapy Daily Note ---
PT Daily Note-Current Subjective Patient in bed pre tx, agrees to PT, has no complaints of pain. Appearance Patient in bed post tx with nurse call, phone, tray, all needs met. Mental Status Patient Orientation: Person, Place, Situation Transfers SCALE: Activities may be completed with or without assistive devices. 3-Lillamlbgd-fmzmujw completes the activity by him/herself with no assistance from a helper. 5-Set-up or Clean-up Assistance-helper sets up or cleans up; patient completes activity. [place] assists only prior to or following the activity. 4-Supervision or Touching Assistance-helper provides verbal cues and/or touching/steadying and/or contact guard assistance as patient completes activity. Assistance may be provided throughout the activity or intermittently. 3-Partial/Moderate Assistance-helper does LESS THAN HALF the effort. [place] lifts, holds or supports trunk or limbs, but provides less than half the effort. 2-Substantial/Maximal Assistance-helper does MORE THAN HALF the effort. [place] lifts or holds trunk or limbs and provides more than half the effort. 3-Ipeijiirz-hruoih does ALL the effort. Patient does none of the effort to complete the activity. Or, the assistance of 2 or more helpers is required for the patient to complete the activity. If activity was not attempted, code reason: 7-Patient Refused. 9-Not Applicable-not attempted and the patient did not perform the activity before the current illness, exacerbation or injury. 10-Not Attempted due to Environmental Limitations-(lack of equipment, weather restraints, etc.). 88-Not Attempted due to Medical Conditions or Safety Concerns. Roll Left & Right (QC): 6 Sit to Lying (QC): 6 Lying to Sitting/Side of Bed(Q: 6 Sit to Stand (QC): 2 Chair/Asj-xu-Rbzkd Xfer(QC): 2 Weight Bearing Right Lower Extremity: Right Weight Bearing/Tolerated Left Lower Extremity: Left Non Weight Bearing NWB LLE AND LUE; MAY WEIGHT-BEAR THROUGH ELBOW ON RUE. WBAT ON RLE. Wheelchair Training Does the Pt Use a Wheelchair?: Yes Wheel 50 ft with 2 turns (QC): 4 Wheel 150 ft (QC): 4 Type of Wheelchair: Manual 150'x2, patient propels backward using his right leg Exercises Supine Ex: Ankle pumps (RLE), Quad Set, Glut sets, Straight leg raise (LLE), Hip abd/add (LLE, also done in sidelying ) Supine Reps: 15 prone hip flexor stretch 3 min Treatments bed mobility and transfers, WC mobility, LE ROM and stretching Assessment Current Status: Fair Progress no change in transfers but patient is able to move his left leg well PT Short Term Goals Short Term Goals Time Frame: Mar 25, 2021 Roll Left & Right: 6 Sit to lyin Lying to sitting on side of be: 6 Sit to stand: 4 Chair/aaz-vr-okdlr transfer: 4 Toilet transfer: 4 Wheel 50ft w/2 turns: 4 Wheel 150 feet: 4 PT Nursing Home Goals Correctional Casework Specialist Goals PT Correctional Casework Specialist Goals Time Frame: Apr 08, 2021 Roll Left & Right (QC): 6 Sit to Lying (QC): 6 Lying-Sitting on Side/Bed(QC): 6 Sit to Stand (QC): 6 Chair/Dbb-ka-Rcrjb Xfer(QC): 6 Toilet Transfer (QC): 6 Car Transfer (QC): 6 Does the Patient Walk: No and Walking Goal NOT indicated Walk 10 feet (QC): 88 Walk 50ft with 2 Turns (QC): 88 Walk 150 ft (QC): 88 Walking 10ft on Uneven Surface: 88 1 Step (curb) (QC): 88 4 Steps (QC): 88 12 Steps (QC): 88 Picking up an Object (QC): 88 Wheel 50 feet with 2 turns (QC: 6 Type: Manual Wheel 150 feet: 6 PT Plan Problem List Problem List: Activity Tolerance, Functional Strength, Safety, Balance, Gait, Transfer, Bed Mobility, ROM Treatment/Plan Treatment Plan: Continue Plan of Care Treatment Plan: Bed Mobility, Education, Functional Activity Krystin, Functional Strength, Group Therapy, Gait, Safety, Therapeutic Exercise, Transfers Treatment Duration: Apr 08, 2021 Frequency: 6 times per week Estimated Hrs Per Day: 1.5 hours per day Patient and/or Family Agrees t: Yes Safety Risks/Education Patient Education: Transfer Techniques, Reviewed Precautions, Correct Positioning, W/C Management, Safety Issues Teaching Recipient: Patient Teaching Methods: Demonstration, Discussion Response to Teaching: Reinforcement Needed Time/GCodes Time In: 1330 Time Out: 1400 Total Billed Treatment Time: 30 Total Billed Treatment 1 visit FA 15' EX 15' STONEY HOOPER PT Mar 15, 2021 14:00
[2021-03-15] MEDS: polyethylene glycoL POWDER 17 GM (MIRALAX) PACK PO SCH ×2 (14:02→19:36)
[2021-03-15] MEDS: DOCUSATE SODIUM 100 MG (COLACE) CAP PO SCH ×2 (14:02→19:36)
[2021-03-15] MEDS: SENNA W/DOCUSATE (SENOKOT S) TABLET PO SCH ×2 (14:03→19:36)
--- NOTE | 2021-03-15 15:35 | Progress Note ---
Subjective Date Seen by Provider: Mar 15, 2021 Time Seen by Provider: 12:30 Subjective/Events-last exam S: Saw Mr. Winkler at bedside today. He had 2 stitches superior to his stump the nurses were unable to remove. I was able to remove these without difficulty. I also removed some eschar from laceration superior to stump. There is no signs of erythema or infection in the superior portion of the leg. His wound culture grew back E. Faecium which was sensitive to Linezolid. I do not know what his cultures were at [place] but reportedly there was infection in the lower extremity prior to amputation (I do not have access to these records). He does still have stitches and eneida in the stump which were to remain in place until follow up later this month. The superior wound which did not appear to track inferiorly at last evaluation now tracks both superiorly and inferiorly and connects to draining sinus at stump flap. The stump is boggy and with purulent drainage. Nurses have been packing daily with iodaform. He is afebrile and appears non-toxic. Review of Systems General: Fatigue Pulmonary: No Dyspnea, No Cough, No Pleuritic Chest Pain, No Other Cardiovascular: No: Chest Pain, Palpitations, Orthopnea, Paroxysmal Noc. Dyspnea, Edema, Lt Headedness, Other Gastrointestinal: No: Nausea, Vomiting, Abdominal Pain, Diarrhea, Constipation, Melena, Hematochezia, Other Musculoskeletal: leg pain Neurological: Weakness Focused Exam Respiratory: No Accessory Muscle Use, No Respiratory Distress Cardiovascular: No Edema Skin: normal color, warm/dry, ulcerations on exposed areas ( AKA with stitches and eneida in place, minimal erythema but bogginess superior to stump, copious purulent drainage from stump flap but also small wound approximatley 4 cm superior to stump. This wound measures 0.5x1.0 cm. There is tunnelling at 12 o'clock 3.3cm, it tunnels at 6-8 o'clock to the stump incision. ) Objective Exam Last Set of Vital Signs Vital Signs Date Time Temp Pulse Resp B/P (MAP) Pulse Ox O2 Delivery O2 Flow Rate FiO2 03/15/21 07:56 36.8 87 18 147/65 (92) 99 Room Air Capillary Refill : General: Alert, Oriented X3, Cooperative, No Acute Distress HEENT: Atraumatic Extremities: No Clubbing, No Cyanosis Psych/Mental Status: Mental Status NL, Mood NL Results Lab Microbiology 03/12/21 Gram Stain - Final, Resulted 03/12/21 Anaerobic Culture - Preliminary, Resulted No anaerobes isolated 03/12/21 Wound Culture - Final, Resulted Enterococcus faecium Staphylococcus epidermidis Assessment/Plan Assessment/Plan Assess & Plan/Chief Complaint A: 1. Post AKA with infected surgical wound 2. E. Faecium abscess P: 1. Sutures removed superiorly. Open areas to be cleansed with saline, aquacel AG applied and gauze. Will continue these dressings daily until healed. 2. D/C Doxycycline 3. Start linezolid 600mg po bid for 14 days. If failure to progress, will defer IV antibiotics to primary. 4. Continue to pack wound with iodaform. Consider switching to dry gauze dampened with Vashe if we do not have success with iodaform. 5. RN to call to discuss with surgeon in [place]. Will notify that plain films appear to show no tejas destruction, evidence of osteomyelitis or loosening of hardware. However there is definitely a subcutaneous infection. She will notify of the organism and antibiotics. Will await their input and need for sooner follow up or further surgery as indicated. 6. Discussed case with primary who is in agreement. DELIA WATTS MD Mar 15, 2021 15:35
[2021-03-15 20:14] VITALS: BP 103/56
[2021-03-15] MEDS: MELATONIN 10 MG TABLET PO SCH (20:16)
[2021-03-15] MEDS: ZOLPIDEM 5 MG (AMBIEN) TAB PO PRN (20:16)
[2021-03-15] MEDS: LINEZOLID (ZYVOX) 600 MG TAB PO SCH (20:16)
[2021-03-16] MEDS: ENOXAPARIN 30 MG/0.3 ML (LOVENOX) SYR SC SCH (07:15)
[2021-03-16] MEDS: DICLOFENAC 1% GEL 100 GM (VOLTAREN) TUBE TOP SCH ×3 (07:16→21:05)
[2021-03-16] MEDS: BETAMETHASONE/CLOTRIM CREAM (LOTRISONE) 45 GM TP SCH ×2 (07:16→21:05)
[2021-03-16] MEDS: NICOTINE 21 MG (NICODERM) PATCH TD SCH (07:16)
[2021-03-16] MEDS: LINEZOLID (ZYVOX) 600 MG TAB PO SCH ×2 (07:16→21:01)
[2021-03-16] MEDS: MUPIROCIN 2% OINT 22 GM (BACTROBAN) TUBE TOP SCH ×2 (07:16→21:06)
[2021-03-16] MEDS: SENNA W/DOCUSATE (SENOKOT S) TABLET PO SCH ×2 (07:19→21:07)
[2021-03-16] MEDS: NICOTINE PATCH REMOVAL TP SCH (07:19)
[2021-03-16] MEDS: polyethylene glycoL POWDER 17 GM (MIRALAX) PACK PO SCH ×2 (07:19→21:07)
[2021-03-16] MEDS: DOCUSATE SODIUM 100 MG (COLACE) CAP PO SCH ×2 (07:19→21:07)
[2021-03-16 07:48] VITALS: BP 122/73
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
--- NOTE | 2021-03-16 09:52 | Physical Therapy Daily Note ---
PT Daily Note-Current Subjective Patient sitting EOB pre tx, agrees to PT, has no complaints of pain at rest. Appearance Patient in WC at bedside post tx with nurse call,phone, tray, all needs met, has OT right after PT Mental Status Patient Orientation: Person, Place, Situation Transfers SCALE: Activities may be completed with or without assistive devices. 6-Kjlroeuvme-ecrxsfg completes the activity by him/herself with no assistance from a helper. 5-Set-up or Clean-up Assistance-helper sets up or cleans up; patient completes activity. [place] assists only prior to or following the activity. 4-Supervision or Touching Assistance-helper provides verbal cues and/or touching/steadying and/or contact guard assistance as patient completes activity. Assistance may be provided throughout the activity or intermittently. 3-Partial/Moderate Assistance-helper does LESS THAN HALF the effort. [place] lifts, holds or supports trunk or limbs, but provides less than half the effort. 2-Substantial/Maximal Assistance-helper does MORE THAN HALF the effort. [place] lifts or holds trunk or limbs and provides more than half the effort. 8-Ggiubkhqv-nvebvi does ALL the effort. Patient does none of the effort to complete the activity. Or, the assistance of 2 or more helpers is required for the patient to complete the activity. If activity was not attempted, code reason: 7-Patient Refused. 9-Not Applicable-not attempted and the patient did not perform the activity before the current illness, exacerbation or injury. 10-Not Attempted due to Environmental Limitations-(lack of equipment, weather restraints, etc.). 88-Not Attempted due to Medical Conditions or Safety Concerns. Sit to Stand (QC): 2 Chair/Zia-md-Miffz Xfer(QC): 2 Transfer to from bed with max assist, during tx patient performs about 4 stand pivot transfers. Patient cannot help much with his due to NWB on both arms and right ankle plantarflexion contracture. Weight Bearing Right Lower Extremity: Right Weight Bearing/Tolerated Left Lower Extremity: Left Non Weight Bearing NWB LLE AND LUE; MAY WEIGHT-BEAR THROUGH ELBOW ON RUE. WBAT ON RLE. Wheelchair Training Does the Pt Use a Wheelchair?: Yes Wheel 50 ft with 2 turns (QC): 4 Wheel 150 ft (QC): 4 Type of Wheelchair: Manual 150'x2, patient propels backward using right foot, needs an occasional cue to avoid obstacles behind him that he might not be able to see Exercises Seated Therapy Exercises: Ankle pumps (RLE only), Hip flexion, Hip abd/add (with ball and RTB) standing in parallel bars x3 for about 20 seconds each time, LAQ alternating for 5 min with 2# ankle weight on right leg NuStep Minutes: 15 NuStep Workload: 1 (no resistance so he doesn't violate his NWB on arms, provides ankle and knee ROM/stretching, patient has a right plantarflexion cont racture and tight quads) Treatments transfers, standing, LE ROM/stretching/strengthening, WC mobility Assessment Current Status: Poor Progress No change in transfers. Patient is not going to be able to improve in transfers as long as he can't bear weight through both of his arms. PT Short Term Goals Short Term Goals Time Frame: Mar 25, 2021 Roll Left & Right: 6 Sit to lyin Lying to sitting on side of be: 6 Sit to stand: 4 Chair/ecz-jy-ycpcq transfer: 4 Toilet transfer: 4 Wheel 50ft w/2 turns: 4 Wheel 150 feet: 4 PT Fdc Goals Photocomposing Keyboard Operator Goals PT Photocomposing Keyboard Operator Goals Time Frame: Apr 08, 2021 Roll Left & Right (QC): 6 Sit to Lying (QC): 6 Lying-Sitting on Side/Bed(QC): 6 Sit to Stand (QC): 6 Chair/Wns-vv-Bcgod Xfer(QC): 6 Toilet Transfer (QC): 6 Car Transfer (QC): 6 Does the Patient Walk: No and Walking Goal NOT indicated Walk 10 feet (QC): 88 Walk 50ft with 2 Turns (QC): 88 Walk 150 ft (QC): 88 Walking 10ft on Uneven Surface: 88 1 Step (curb) (QC): 88 4 Steps (QC): 88 12 Steps (QC): 88 Picking up an Object (QC): 88 Wheel 50 feet with 2 turns (QC: 6 Type: Manual Wheel 150 feet: 6 PT Plan Problem List Problem List: Activity Tolerance, Functional Strength, Safety, Balance, Gait, Transfer, Bed Mobility, ROM Treatment/Plan Treatment Plan: Continue Plan of Care Treatment Plan: Bed Mobility, Education, Functional Activity [place], Functional Strength, Group Therapy, Gait, Safety, Therapeutic Exercise, Transfers Treatment Duration: Apr 08, 2021 Frequency: 6 times per week Estimated Hrs Per Day: 1.5 hours per day Patient and/or Family Agrees t: Yes Safety Risks/Education Patient Education: Transfer Techniques, Reviewed Precautions, Correct Positioning, W/C Management, Safety Issues Teaching Recipient: Patient Teaching Methods: Demonstration, Discussion Response to Teaching: Reinforcement Needed Time/GCodes Time In: 0900 Time Out: 1000 Total Billed Treatment Time: 60 Total Billed Treatment 1 visit EX 30' FA 30' STONEY HOOPER PT Mar 16, 2021 09:52
--- NOTE | 2021-03-16 12:39 | Occupational Ther Daily Note ---
OT Current Status-Daily Note Subjective Pt seen in room, up in bed, agreeable to OT. No pain reported except with certain movements. Appearance Alert, cooperative ADL-Treatment Pt declined bathing but was agreeable to changing clothes (but no clean clothes available). He was on the bedpan and was able to roll to his side for OT to remove bedpan. He was also able to pull his pants up in bed. Able to move from supine to sit but needed max assist to transfer to w/c. Pt completed ADLs at sink while seated in w/c. Able to wash face, apply shaving cream and shave both sides of face using L hand. Built up handle applied to razor for him to practice shaving with R hand next time (difficulty holding on to razor due to cast and positioning R hand). He was able to apply tooth paste to tooth brush and clean gums. He declined to wear dentures today. He was also able to comb hair with L hand. All ADLs took longer than usual. Therapy Code Descriptions/Definitions Functional [place] Measure: 0=Not Assessed/NA 4=Minimal Assistance 1=Total Assistance 5=Supervision or Setup 2=Maximal Assistance 6=Modified [place] 3=Moderate Assistance 7=Complete IndependenceSCALE: Activities may be completed with or without assistive devices. 8-Ycvhmgfkkq-dvmtkyk completes the activity by him/herself with no assistance from a helper. 5-Set-up or Clean-up Assistance-helper sets up or cleans up; patient completes activity. [place] assists only prior to or following the activity. 4-Supervision or Touching Assistance-helper provides verbal cues and/or touching/steadying and/or contact guard assistance as patient completes activity. Assistance may be provided throughout the activity or intermittently. 3-Partial/Moderate Assistance-helper does LESS THAN HALF the effort. [place] lifts, holds or supports trunk or limbs, but provides less than half the effort. 2-Substantial/Maximal Assistance-helper does MORE THAN HALF the effort. [place] lifts or holds trunk or limbs and provides more than half the effort. 6-Cljgssuwt-oxmtqd does ALL the effort. Patient does none of the effort to complete the activity. Or, the assistance of 2 or more helpers is required for the patient to complete the activity. If activity was not attempted, code reason: 7-Patient Refused. 9-Not Applicable-not attempted and the patient did not perform the activity before the current illness, exacerbation or injury. 10-Not Attempted due to Environmental Limitations-(lack of equipment, weather restraints, etc.). 88-Not Attempted due to Medical Conditions or Safety Concerns. Other Treatment Pt education on bilat UE exercise with AROM and no additional resistance, working on shoulders and elbows, completing 10 reps. Very limited AROM L pron/sup (pt reported L elbow had been in a cast). Also limited R hand function due to wrist cast in flexion. To help increase UE function to help with ADLs. Pt transferred back into bed max assist but he was able to position himself for comfort. Pt left up in bed, all needs met. Education OT Patient Education: Exercise program, Modified ADL techniques, Progress toward Goal/Update tx plan, Purpose of tx/functional activities, Use of adapted equipment Teaching Recipient: Patient Teaching Methods: Demonstration, Discussion Response to Teaching: Verbalize Understanding, Return Demonstration OT Short Term Goals Short Term Goals Time Frame: Mar 26, 2021 Eatin Oral hygiene: 4 Toileting hygiene: 3 Shower/bathe self: 3 Upper body dressin Lower body dressin Putting on/taking off footwear: 3 OT [facility] Goals Photocopy Operator Goals Time Frame: Apr 06, 2021 Eating (QC): 6 Oral Hygiene (QC): 5 Toileting Hygiene (QC): 4 Shower/Bathe Self (QC): 4 Upper Body Dressing (QC): 5 Lower Body Dressing (QC): 4 On/Off Footwear (QC): 4 1=Demonstrate adherence to instructed precautions during ADL tasks. 2=Patient will verbalize/demonstrate understanding of assistive devices/modifi cations for ADL. 3=Patient will improve strength/tolerance for activity to enable patient to perform ADL's. OT Education/Plan Discharge Recommendations Plan/Recommendations: Continue POC Treatment Plan/Plan of Care Patient would benefit from OT for education, treatment and training to promote independence in ADL's, mobility, safety and/or upper extremity function for ADL's. Plan of Care: ADL Retraining, Functional Mobility, Group Exercise/Act as Ind, Orthotic Fitting/Training, UE Funct Exercise/Act, W/C Management Training Treatment Duration: Apr 06, 2021 Frequency: At least 5 of 7 days/Wk (IRF) Estimated Hrs Per Day: 1.5 hours per day Agreement: Yes Rehab Potential: Fair Time/GCodes Start Time: 10:00 Stop Time: 11:00 Total Time Billed (hr/min): 60 Billed Treatment Time visit, 45 minutes ADL, 15 minutes exercise MARÍA ELENA SHIELDS OT Mar 16, 2021 12:39
[2021-03-16] MEDS: DOCUSATE SODIUM 100 MG (COLACE) CAP PO PRN (12:56)
--- NOTE | 2021-03-16 14:29 | Physical Therapy Daily Note ---
PT Daily Note-Current Subjective Patient in bed pre tx, agrees to PT, has 4/10 pain Appearance Patient in bed post tx with nurse call, phone, tray, all needs met. Mental Status Patient Orientation: Person, Place, Situation Transfers SCALE: Activities may be completed with or without assistive devices. 5-Azmfbanthe-sgvurin completes the activity by him/herself with no assistance from a helper. 5-Set-up or Clean-up Assistance-helper sets up or cleans up; patient completes activity. [place] assists only prior to or following the activity. 4-Supervision or Touching Assistance-helper provides verbal cues and/or touching/steadying and/or contact guard assistance as patient completes activity. Assistance may be provided throughout the activity or intermittently. 3-Partial/Moderate Assistance-helper does LESS THAN HALF the effort. [place] lifts, holds or supports trunk or limbs, but provides less than half the effort. 2-Substantial/Maximal Assistance-helper does MORE THAN HALF the effort. [place] lifts or holds trunk or limbs and provides more than half the effort. 4-Mbptenqgj-aqsnap does ALL the effort. Patient does none of the effort to complete the activity. Or, the assistance of 2 or more helpers is required for the patient to complete the activity. If activity was not attempted, code reason: 7-Patient Refused. 9-Not Applicable-not attempted and the patient did not perform the activity before the current illness, exacerbation or injury. 10-Not Attempted due to Environmental Limitations-(lack of equipment, weather restraints, etc.). 88-Not Attempted due to Medical Conditions or Safety Concerns. Roll Left & Right (QC): 6 Sit to Lying (QC): 6 Lying to Sitting/Side of Bed(Q: 6 Sit to Stand (QC): 3 Chair/Dss-mc-Pvnne Xfer(QC): 3 Weight Bearing Right Lower Extremity: Right Weight Bearing/Tolerated Left Lower Extremity: Left Non Weight Bearing NWB LLE AND LUE; MAY WEIGHT-BEAR THROUGH ELBOW ON RUE. WBAT ON RLE. Wheelchair Training Does the Pt Use a Wheelchair?: Yes Wheel 50 ft with 2 turns (QC): 4 Type of Wheelchair: Manual 120'x2 Exercises Supine Ex: Quad Set, Glut sets, Straight leg raise (LLE only), Hip abd/add (LLE only, also done in sidelying) Supine Reps: 20 prone hip flexor stretch 3 min Treatments transfers, bed mobility training, ROM and stretching Assessment Current Status: Fair Progress improved sit <-> stand mod assist PT Short Term Goals Short Term Goals Time Frame: Mar 25, 2021 Roll Left & Right: 6 Sit to lyin Lying to sitting on side of be: 6 Sit to stand: 4 Chair/bzr-ay-vladp transfer: 4 Toilet transfer: 4 Wheel 50ft w/2 turns: 4 Wheel 150 feet: 4 PT Mcfp Goals Convention Services Manager Goals PT Mcfp Goals Time Frame: Apr 08, 2021 Roll Left & Right (QC): 6 Sit to Lying (QC): 6 Lying-Sitting on Side/Bed(QC): 6 Sit to Stand (QC): 6 Chair/Cak-tj-Sflkh Xfer(QC): 6 Toilet Transfer (QC): 6 Car Transfer (QC): 6 Does the Patient Walk: No and Walking Goal NOT indicated Walk 10 feet (QC): 88 Walk 50ft with 2 Turns (QC): 88 Walk 150 ft (QC): 88 Walking 10ft on Uneven Surface: 88 1 Step (curb) (QC): 88 4 Steps (QC): 88 12 Steps (QC): 88 Picking up an Object (QC): 88 Wheel 50 feet with 2 turns (QC: 6 Type: Manual Wheel 150 feet: 6 PT Plan Problem List Problem List: Activity Tolerance, Functional Strength, Safety, Balance, Gait, Transfer, Bed Mobility, ROM Treatment/Plan Treatment Plan: Continue Plan of Care Treatment Plan: Bed Mobility, Education, Functional Activity Krystin, Functional Strength, Group Therapy, Gait, Safety, Therapeutic Exercise, Transfers Treatment Duration: Apr 08, 2021 Frequency: 6 times per week Estimated Hrs Per Day: 1.5 hours per day Patient and/or Family Agrees t: Yes Safety Risks/Education Patient Education: Transfer Techniques, Reviewed Precautions, Correct Positioning, W/C Management, Safety Issues Teaching Recipient: Patient Teaching Methods: Demonstration, Discussion Response to Teaching: Reinforcement Needed Time/GCodes Time In: 1400 Time Out: 1430 Total Billed Treatment Time: 30 Total Billed Treatment 1 visit EX 15' FA 15' STONEY HOOPER PT Mar 16, 2021 14:29
--- NOTE | 2021-03-16 15:25 | Occupational Ther Daily Note ---
OT Current Status-Daily Note Subjective Pt seen in room, up in bed, agreeable to OT. No pain mentioned. ADL-Treatment Therapy Code Descriptions/Definitions Functional [place] Measure: 0=Not Assessed/NA 4=Minimal Assistance 1=Total Assistance 5=Supervision or Setup 2=Maximal Assistance 6=Modified [place] 3=Moderate Assistance 7=Complete IndependenceSCALE: Activities may be completed with or without assistive devices. 1-Aqasadlagm-bveydjv completes the activity by him/herself with no assistance from a helper. 5-Set-up or Clean-up Assistance-helper sets up or cleans up; patient completes activity. [place] assists only prior to or following the activity. 4-Supervision or Touching Assistance-helper provides verbal cues and/or touch ing/steadying and/or contact guard assistance as patient completes activity. Assistance may be provided throughout the activity or intermittently. 3-Partial/Moderate Assistance-helper does LESS THAN HALF the effort. [place] lifts, holds or supports trunk or limbs, but provides less than half the effort. 2-Substantial/Maximal Assistance-helper does MORE THAN HALF the effort. [place] lifts or holds trunk or limbs and provides more than half the effort. 9-Fvibzvxsn-lkuhoe does ALL the effort. Patient does none of the effort to complete the activity. Or, the assistance of 2 or more helpers is required for the patient to complete the activity. If activity was not attempted, code reason: 7-Patient Refused. 9-Not Applicable-not attempted and the patient did not perform the activity before the current illness, exacerbation or injury. 10-Not Attempted due to Environmental Limitations-(lack of equipment, weather restraints, etc.). 88-Not Attempted due to Medical Conditions or Safety Concerns. Other Treatment Pt reported in AM that thumb and first three fingers on R hand were numb and hand was cold. This afternoon, he mentioned only decreased sensation in tips of fingers and hand was much warmer. Pt educ on different bilat UE exercises to help increase UE function to help with ADLs. He was able to demonstrate all intrinsic finger movements L hand and able to oppose thumb to base of little finger and full thumb extension. Full active wrist flex and ext L but very limited pron/sup. Pt educ gentle stretch for pron/sup, working in pain free zone. L elbow extension limited to approx -45 degrees but appeared to gain a few degrees of extension with repetition. On R hand some difficulty with accurate intrinsic movements due to wrist position in flexion. Pt does have full passive finger extension but not active. Increased R elbow extension compared to L. Pt also completed horizontal shoulder abd/add with no additional resistance. Pt encouraged to do AROM periodically on his own to increase strength and AROM. Pt left up in bed, all needs met. Education OT Patient Education: Exercise program, Purpose of tx/functional activities Teaching Recipient: Patient Teaching Methods: Demonstration, Discussion Response to Teaching: Verbalize Understanding, Return Demonstration OT Short Term Goals Short Term Goals Time Frame: Mar 26, 2021 Eatin Oral hygiene: 4 Toileting hygiene: 3 Shower/bathe self: 3 Upper body dressin Lower body dressin Putting on/taking off footwear: 3 OT Electric Stove Mechanic Goals Skilled Nursing Goals Time Frame: Apr 06, 2021 Eating (QC): 6 Oral Hygiene (QC): 5 Toileting Hygiene (QC): 4 Shower/Bathe Self (QC): 4 Upper Body Dressing (QC): 5 Lower Body Dressing (QC): 4 On/Off Footwear (QC): 4 1=Demonstrate adherence to instructed precautions during ADL tasks. 2=Patient will verbalize/demonstrate understanding of assistive devices/modifications for ADL. 3=Patient will improve strength/tolerance for activity to enable patient to perform ADL's. OT Education/Plan Discharge Recommendations Plan/Recommendations: Continue POC Treatment Plan/Plan of Care Patient would benefit from OT for education, treatment and training to promote independence in ADL's, mobility, safety and/or upper extremity function for A DL's. Plan of Care: ADL Retraining, Functional Mobility, Group Exercise/Act as Ind, Orthotic Fitting/Training, UE Funct Exercise/Act, W/C Management Training Treatment Duration: Apr 06, 2021 Frequency: At least 5 of 7 days/Wk (IRF) Estimated Hrs Per Day: 1.5 hours per day Agreement: Yes Rehab Potential: Fair Time/GCodes Start Time: 13:30 Stop Time: 14:00 Total Time Billed (hr/min): 30 Billed Treatment Time visit, 30 minutes exercise MARÍA ELENA SHIELDS OT Mar 16, 2021 15:24
[2021-03-16 19:52] VITALS: BP 114/68
[2021-03-16] MEDS: MELATONIN 10 MG TABLET PO SCH (21:01)
[2021-03-16] MEDS: ZOLPIDEM 5 MG (AMBIEN) TAB PO PRN (21:01)
[2021-03-16] MEDS: ALPRAZolam 0.25 MG (XANAX) TAB PO PRN (23:18)
[2021-03-17] MEDS: DOCUSATE SODIUM 100 MG (COLACE) CAP PO PRN (02:31)
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
[2021-03-17 07:28] VITALS: BP 106/65
[2021-03-17] MEDS: NICOTINE 21 MG (NICODERM) PATCH TD SCH (08:32)
[2021-03-17] MEDS: LINEZOLID (ZYVOX) 600 MG TAB PO SCH ×2 (08:32→20:40)
[2021-03-17] MEDS: SENNA W/DOCUSATE (SENOKOT S) TABLET PO SCH ×2 (08:34→20:49)
[2021-03-17] MEDS: ENOXAPARIN 30 MG/0.3 ML (LOVENOX) SYR SC SCH (08:34)
[2021-03-17] MEDS: polyethylene glycoL POWDER 17 GM (MIRALAX) PACK PO SCH ×2 (08:34→20:49)
[2021-03-17] MEDS: NICOTINE PATCH REMOVAL TP SCH (08:34)
[2021-03-17] MEDS: DOCUSATE SODIUM 100 MG (COLACE) CAP PO SCH ×2 (08:34→20:49)
[2021-03-17] MEDS: MUPIROCIN 2% OINT 22 GM (BACTROBAN) TUBE TOP SCH ×2 (12:14→20:47)
[2021-03-17] MEDS: DICLOFENAC 1% GEL 100 GM (VOLTAREN) TUBE TOP SCH ×3 (12:15→20:46)
[2021-03-17] MEDS: BETAMETHASONE/CLOTRIM CREAM (LOTRISONE) 45 GM TP SCH ×2 (12:15→20:47)
--- NOTE | 2021-03-17 14:26 | Physical Therapy Daily Note ---
PT Daily Note-Current Subjective Pt reports he doesn't want to get up but realizes that he needs to get up. Transfers SCALE: Activities may be completed with or without assistive devices. 7-Bfsjnpnpmm-owqngun completes the activity by him/herself with no assistance from a helper. 5-Set-up or Clean-up Assistance-helper sets up or cleans up; patient completes activity. [place] assists only prior to or following the activity. 4-Supervision or Touching Assistance-helper provides verbal cues and/or touching/steadying and/or contact guard assistance as patient completes activity. Assistance may be provided throughout the activity or intermittently. 3-Partial/Moderate Assistance-helper does LESS THAN HALF the effort. [place] lifts, holds or supports trunk or limbs, but provides less than half the effort. 2-Substantial/Maximal Assistance-helper does MORE THAN HALF the effort. [place] lifts or holds trunk or limbs and provides more than half the effort. 9-Meewjbuhq-cmhdbr does ALL the effort. Patient does none of the effort to complete the activity. Or, the assistance of 2 or more helpers is required for the patient to complete the activity. If activity was not attempted, code reason: 7-Patient Refused. 9-Not Applicable-not attempted and the patient did not perform the activity before the current illness, exacerbation or injury. 10-Not Attempted due to Environmental Limitations-(lack of equipment, weather restraints, etc.). 88-Not Attempted due to Medical Conditions or Safety Concerns. Sit to Stand (QC): 2 Weight Bearing Right Lower Extremity: Right Weight Bearing/Tolerated Left Lower Extremity: Left Non Weight Bearing NWB LLE AND LUE; MAY WEIGHT-BEAR THROUGH ELBOW ON RUE. WBAT ON RLE. Exercises Supine Ex: Quad Set, Rolling, Glut sets, Heel Slides, Short Arc Quads, Straight leg raise, Hip abd/add Supine Reps: 15 stretching to the (R) quads and gastroc; sit to stand x 2; patient extreme pain in the right calf during standing secondary to contractures.. pt shown how to do a supine gastroc stretch using a sheet. Assessment Pt will benefit from continued PT. Pt standing limited by right knee and gastroc muslce contractures. PT Short Term Goals Short Term Goals Time Frame: Mar 25, 2021 Roll Left & Right: 6 Sit to lyin Lying to sitting on side of be: 6 Sit to stand: 4 Chair/mix-qu-stwym transfer: 4 Toilet transfer: 4 Wheel 50ft w/2 turns: 4 Wheel 150 feet: 4 PT Carburizing Furnace Operator Goals Carburizing Furnace Operator Goals PT Carburizing Furnace Operator Goals Time Frame: Apr 08, 2021 Roll Left & Right (QC): 6 Sit to Lying (QC): 6 Lying-Sitting on Side/Bed(QC): 6 Sit to Stand (QC): 6 Chair/Clf-ld-Puxxh Xfer(QC): 6 Toilet Transfer (QC): 6 Car Transfer (QC): 6 Does the Patient Walk: No and Walking Goal NOT indicated Walk 10 feet (QC): 88 Walk 50ft with 2 Turns (QC): 88 Walk 150 ft (QC): 88 Walking 10ft on Uneven Surface: 88 1 Step (curb) (QC): 88 4 Steps (QC): 88 12 Steps (QC): 88 Picking up an Object (QC): 88 Wheel 50 feet with 2 turns (QC: 6 Type: Manual Wheel 150 feet: 6 PT Plan Treatment/Plan Treatment Plan: Continue Plan of Care Treatment Plan: Bed Mobility, Education, Functional Activity Krystin, Functional Strength, Group Therapy, Gait, Safety, Therapeutic Exercise, Transfers Treatment Duration: Apr 08, 2021 Frequency: 6 times per week Estimated Hrs Per Day: 1.5 hours per day Patient and/or Family Agrees t: Yes Time/GCodes Time In: 1345 Time Out: 1405 Total Billed Treatment Time: 20 Total Billed Treatment visit, exercise 20 min SINAN SMITH PT Mar 17, 2021 14:26
[2021-03-17] MEDS: ACETAMINOPHEN 325 MG TABLET PO PRN (15:08)
[2021-03-17 19:55] VITALS: BP 108/68
[2021-03-17] MEDS: ZOLPIDEM 5 MG (AMBIEN) TAB PO PRN (20:40)
[2021-03-17] MEDS: MELATONIN 10 MG TABLET PO SCH (20:40)
[2021-03-17] MEDS: ALPRAZolam 0.25 MG (XANAX) TAB PO PRN (22:55)
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
[2021-03-18 07:23] VITALS: BP 114/76
[2021-03-18] MEDS: ENOXAPARIN 30 MG/0.3 ML (LOVENOX) SYR SC SCH (09:05)
[2021-03-18] MEDS: LINEZOLID (ZYVOX) 600 MG TAB PO SCH ×2 (09:05→21:11)
[2021-03-18] MEDS: NICOTINE 21 MG (NICODERM) PATCH TD SCH (09:06)
[2021-03-18] MEDS: polyethylene glycoL POWDER 17 GM (MIRALAX) PACK PO SCH ×2 (09:06→21:15)
[2021-03-18] MEDS: DOCUSATE SODIUM 100 MG (COLACE) CAP PO SCH ×2 (09:09→21:12)
[2021-03-18] MEDS: SENNA W/DOCUSATE (SENOKOT S) TABLET PO SCH ×2 (09:11→21:15)
[2021-03-18] MEDS: NICOTINE PATCH REMOVAL TP SCH (09:11)
[2021-03-18] MEDS: MUPIROCIN 2% OINT 22 GM (BACTROBAN) TUBE TOP SCH ×2 (09:12→21:11)
[2021-03-18] MEDS: DICLOFENAC 1% GEL 100 GM (VOLTAREN) TUBE TOP SCH ×3 (09:12→21:11)
[2021-03-18] MEDS: BETAMETHASONE/CLOTRIM CREAM (LOTRISONE) 45 GM TP SCH ×2 (09:12→21:10)
[2021-03-18 20:00] VITALS: BP 112/72
[2021-03-18] MEDS: traZODone 50 MG (DESYREL) TAB PO SCH (21:12)
[2021-03-18] MEDS: ZOLPIDEM 5 MG (AMBIEN) TAB PO PRN (21:12)
[2021-03-18] MEDS: MELATONIN 10 MG TABLET PO SCH (21:12)
[2021-03-18] MEDS: ALPRAZolam 0.25 MG (XANAX) TAB PO PRN (21:13)
[2021-03-19 06:15] LABS: BASOPHILS % (AUTO) 1 % (0-10); EOSINOPHILS # (AUTO) 0.2 10^3/uL (0.0-0.3); EOSINOPHILS % (AUTO) 4 % (0-10); HEMATOCRIT 34 % (40-54); HEMOGLOBIN 10.4 g/dL (13.3-17.7); LYMPHOCYTES # (AUTO) 1.8 10^3/uL (1.0-4.0); LYMPHOCYTES % (AUTO) 38 % (12-44); MEAN CORPUSCULAR HEMOGLOBIN 29 pg (25-34); MEAN CORPUSCULAR HGB CONC 31 g/dL (32-36); MEAN CORPUSCULAR VOLUME 94 fL (80-99); MEAN PLATELET VOLUME 10.3 fL (9.0-12.2); MONOCYTES # (AUTO) 0.6 10^3/uL (0.0-1.0); MONOCYTES % (AUTO) 12 % (0-12); NEUTROPHILS # (AUTO) 2.2 10^3/uL (1.8-7.8); NEUTROPHILS % (AUTO) 46 % (42-75); PLATELET COUNT 355 10^3/uL (130-400); WHITE BLOOD COUNT 4.8 10^3/uL (4.3-11.0)
[2021-03-19 06:53] LABS: ALBUMIN 3.2 GM/DL (3.2-4.5); POTASSIUM 3.9 MMOL/L (3.6-5.0)
[2021-03-19 06:54] LABS: CALCIUM 9.4 MG/DL (8.5-10.1)
[2021-03-19 06:55] LABS: TOTAL PROTEIN 6.1 GM/DL (6.4-8.2)
[2021-03-19 06:57] LABS: BILIRUBIN,TOTAL 0.5 MG/DL (0.1-1.0)
[2021-03-19 06:59] LABS: CREATININE SERUM 0.66 MG/DL (0.60-1.30)
[2021-03-19] MEDS: LINEZOLID (ZYVOX) 600 MG TAB PO SCH ×2 (07:30→20:41)
[2021-03-19] MEDS: ENOXAPARIN 30 MG/0.3 ML (LOVENOX) SYR SC SCH (07:31)
[2021-03-19] MEDS: NICOTINE 21 MG (NICODERM) PATCH TD SCH (07:31)
[2021-03-19] MEDS: DICLOFENAC 1% GEL 100 GM (VOLTAREN) TUBE TOP SCH ×3 (07:35→20:53)
[2021-03-19] MEDS: MUPIROCIN 2% OINT 22 GM (BACTROBAN) TUBE TOP SCH ×2 (07:35→20:45)
[2021-03-19] MEDS: NICOTINE PATCH REMOVAL TP SCH (07:36)
[2021-03-19] MEDS: BETAMETHASONE/CLOTRIM CREAM (LOTRISONE) 45 GM TP SCH ×2 (07:36→20:44)
[2021-03-19 08:00] VITALS: BP 95/57
[2021-03-19] MEDS: DOCUSATE SODIUM 100 MG (COLACE) CAP PO SCH ×2 (08:23→20:41)
[2021-03-19] MEDS: SENNA W/DOCUSATE (SENOKOT S) TABLET PO SCH ×2 (08:24→20:41)
[2021-03-19] MEDS: polyethylene glycoL POWDER 17 GM (MIRALAX) PACK PO SCH ×2 (08:24→20:54)
--- NOTE | 2021-03-19 09:34 | Occupational Ther Daily Note ---
OT Current Status-Daily Note Subjective Pt reports pain as 3/10, states meds given prior to OT arrival. Appearance Pt left sitting in w/c in therapy gym with physical therapy ADL-Treatment Therapy Code Descriptions/Definitions Functional [place] Measure: 0=Not Assessed/NA 4=Minimal Assistance 1=Total Assistance 5=Supervision or Setup 2=Maximal Assistance 6=Modified [place] 3=Moderate Assistance 7=Complete IndependenceSCALE: Activities may be completed with or without assistive devices. 7-Tartqoexbm-pnsebfw completes the activity by him/herself with no assistance from a helper. 5-Set-up or Clean-up Assistance-helper sets up or cleans up; patient completes activity. [place] assists only prior to or following the activity. 4-Supervision or Touching Assistance-helper provides verbal cues and/or touching/steadying and/or contact guard assistance as patient completes activity. Assistance may be provided throughout the activity or intermittently. 3-Partial/Moderate Assistance-helper does LESS THAN HALF the effort. [place] lifts, holds or supports trunk or limbs, but provides less than half the effort. 2-Substantial/Maximal Assistance-helper does MORE THAN HALF the effort. [place] lifts or holds trunk or limbs and provides more than half the effort. 8-Ahrrygyat-eolcop does ALL the effort. Patient does none of the effort to complete the activity. Or, the assistance of 2 or more helpers is required for the patient to complete the activity. If activity was not attempted, code reason: 7-Patient Refused. 9-Not Applicable-not attempted and the patient did not perform the activity before the current illness, exacerbation or injury. 10-Not Attempted due to Environmental Limitations-(lack of equipment, weather restraints, etc.). 88-Not Attempted due to Medical Conditions or Safety Concerns. Oral Hygiene (QC): 4 Bathing Location: L Arm, R Arm, L Upper Leg, R Upper Leg, L Lower Leg (including foot), R Lower Leg (including foot), Chest, Abdomen, Buttocks, Perineal Area Shower/Bathe Self (QC): 3 Upper Body Dressing (QC): 4 Lower Body Dressing (QC): 4 On/Off Footwear: 3 Toilet Transfer (QC): 2 Sponge bath/dressing tasks performed sitting EOB. Good recall of darline technique to wash L axilla, min a for thoroughness only. Pt cued by OT to perform lateral pelvic leans in order to wash buttocks. Min a to wash R side. He utilized junior sales representative to thread RLE into pants, extra time and min cues for preferred use. Clothing management performed sitting and leaning R/L while pulling up to hips; extra time but no assist required. Assist needed to don sock onto sock aid, pt able to don over foot without assist. Stand pivot from bed (elevated height) to w/c with mod a, second person sba-cga for safety. He propelled w/c into bathroom to perform grooming tasks. He shaved and bushed teeth with use of L hand, cues to utilize R hand as stabilizing when needed. Pt declined using built up handle and use of R hand. Extra time required for all ADLs. Toilet transfer x2, Mod-max a with second person sba-cga for safety; cues for positioning and sequencing. Pt propelled w/c throughout unit with use of RLE, cues for safety. Sit<>stand x3 in parallel bars with goal to promote RLE strength and balance. Co-treat with PT [id number] for safety and instruction Education OT Patient Education: Correct positioning, Energy conservation, Modified ADL techniques, Progress toward Goal/Update tx plan, Purpose of tx/functional activities, Reviewed precautions, Rehab process, Safety issues, Transfer techniques, Use of adapted equipment, W/C management Teaching Recipient: Patient Teaching Methods: Demonstration, Discussion Response to Teaching: Verbalize Understanding, Return Demonstration, Reinforcement Needed OT Short Term Goals Short Term Goals Time Frame: Mar 26, 2021 Eatin Oral hygiene: 4 Toileting hygiene: 3 Shower/bathe self: 3 Upper body dressin Lower body dressin Putting on/taking off footwear: 3 OT Group Home Goals Group Home Goals Time Frame: Apr 06, 2021 Eating (QC): 6 Oral Hygiene (QC): 5 Toileting Hygiene (QC): 4 Shower/Bathe Self (QC): 4 Upper Body Dressing (QC): 5 Lower Body Dressing (QC): 4 On/Off Footwear (QC): 4 1=Demonstrate adherence to instructed precautions during ADL tasks. 2=Patient will verbalize/demonstrate understanding of assistive devices/modifications for ADL. 3=Patient will improve strength/tolerance for activity to enable patient to perform ADL's. OT Education/Plan Problem List/Assessment Assessment: Decreased Activ Tolerance, Decreased Safety Aware, Decreased UE Strength, Dependent Transfers, Impaired Coordination, Impaired Funct Balance, Impaired I ADL's, Impaired Self-Care Skills, Restricted Funct UE ROM Discharge Recommendations Plan/Recommendations: Continue POC Equpiment Recommendations-D/C: Hims Manager, Sock Aide, Toilet Riser Treatment Plan/Plan of Care Treatment,Training & Education: Yes Patient would benefit from OT for education, treatment and training to promote independence in ADL's, mobility, safety and/or upper extremity function for ADL's. Plan of Care: ADL Retraining, Functional Mobility, Group Exercise/Act as Ind, Orthotic Fitting/Training, UE Funct Exercise/Act, W/C Management Training Treatment Duration: Apr 06, 2021 Frequency: At least 5 of 7 days/Wk (IRF) Estimated Hrs Per Day: 1.5 hours per day Agreement: Yes Rehab Potential: Fair Time/GCodes Start Time: 07:55 Stop Time: 09:25 Total Time Billed (hr/min): 90 Billed Treatment Time 1 visit, ADL x5 (75) FA (15) Co-treat with PT [id number] Rukhsana Anderson OT Mar 19, 2021 09:34
--- NOTE | 2021-03-19 09:54 | Physical Therapy Daily Note ---
PT Daily Note-Current Subjective Patient in WC in room pre tx, agrees to PT, has no complaints of pain at rest, already working with OT. Will be co-treating with OT due to poor patient mobility, strength, endurance, complicated weight beating status, coordinate UE and LE during activity, safety and reduce risk of falls. Appearance Patient in WC at bedside post tx with nurse call, phone, tray, all needs met. Mental Status Patient Orientation: Person, Place, Situation Transfers SCALE: Activities may be completed with or without assistive devices. 4-Ccdzifuvah-pgmkphk completes the activity by him/herself with no assistance from a helper. 5-Set-up or Clean-up Assistance-helper sets up or cleans up; patient completes activity. [place] assists only prior to or following the activity. 4-Supervision or Touching Assistance-helper provides verbal cues and/or touching/steadying and/or contact guard assistance as patient completes activity. Assistance may be provided throughout the activity or intermittently. 3-Partial/Moderate Assistance-helper does LESS THAN HALF the effort. [place] lifts, holds or supports trunk or limbs, but provides less than half the effort. 2-Substantial/Maximal Assistance-helper does MORE THAN HALF the effort. [place] lifts or holds trunk or limbs and provides more than half the effort. 7-Bkhqykwev-snqbmx does ALL the effort. Patient does none of the effort to compl ete the activity. Or, the assistance of 2 or more helpers is required for the patient to complete the activity. If activity was not attempted, code reason: 7-Patient Refused. 9-Not Applicable-not attempted and the patient did not perform the activity before the current illness, exacerbation or injury. 10-Not Attempted due to Environmental Limitations-(lack of equipment, weather restraints, etc.). 88-Not Attempted due to Medical Conditions or Safety Concerns. Sit to Stand (QC): 2 Chair/Wzv-rz-Cikex Xfer(QC): 2 Toilet Transfer (QC): 2 Practiced toilet transfer x4, held onto grab bars but didn't bear weight or pull with arms. Weight Bearing Right Lower Extremity: Right Weight Bearing/Tolerated Left Lower Extremity: Left Non Weight Bearing NWB LLE AND LUE; MAY WEIGHT-BEAR THROUGH ELBOW ON RUE. WBAT ON RLE. Wheelchair Training Does the Pt Use a Wheelchair?: Yes Wheel 50 ft with 2 turns (QC): 4 Wheel 150 ft (QC): 4 Type of Wheelchair: Manual 150'x2, uses right leg to propel WC backward, cues for obstacles he may not see behind him Exercises standing in parallel bars x 3 for about 20 seconds each time, max to mod assist to stand, has a hard time standing straight due to his right ankle plantarflexion contracture NuStep Minutes: 15 NuStep Workload: 1 (no resistance so he doesn't violate his WB restrictions in UE's, mostly for right ankle and knee ROM) Treatments PT performed transfers, WC mobility, standing, ROM, OT performed UE positioning and safety during transfers and mobility Assessment Current Status: Poor Progress Patient is limited on what he can do by his weight bearing restrictions and his right ankle contracture, we have been working to stretch it out but it is sign ificant PT Short Term Goals Short Term Goals Time Frame: Mar 25, 2021 Roll Left & Right: 6 Sit to lyin Lying to sitting on side of be: 6 Sit to stand: 4 Chair/dvq-fb-irujd transfer: 4 Toilet transfer: 4 Wheel 50ft w/2 turns: 4 Wheel 150 feet: 4 PT Senior Living Goals Senior Living Goals PT Senior Living Goals Time Frame: Apr 08, 2021 Roll Left & Right (QC): 6 Sit to Lying (QC): 6 Lying-Sitting on Side/Bed(QC): 6 Sit to Stand (QC): 6 Chair/Tdb-hu-Zybcw Xfer(QC): 6 Toilet Transfer (QC): 6 Car Transfer (QC): 6 Does the Patient Walk: No and Walking Goal NOT indicated Walk 10 feet (QC): 88 Walk 50ft with 2 Turns (QC): 88 Walk 150 ft (QC): 88 Walking 10ft on Uneven Surface: 88 1 Step (curb) (QC): 88 4 Steps (QC): 88 12 Steps (QC): 88 Picking up an Object (QC): 88 Wheel 50 feet with 2 turns (QC: 6 Type: Manual Wheel 150 feet: 6 PT Plan Problem List Problem List: Activity Tolerance, Functional Strength, Safety, Balance, Gait, Transfer, Bed Mobility, ROM Treatment/Plan Treatment Plan: Continue Plan of Care Treatment Plan: Bed Mobility, Education, Functional Activity Krystin, Functional Strength, Group Therapy, Gait, Safety, Therapeutic Exercise, Transfers Treatment Duration: Apr 08, 2021 Frequency: 6 times per week Estimated Hrs Per Day: 1.5 hours per day Patient and/or Family Agrees t: Yes Safety Risks/Education Patient Education: Transfer Techniques, Reviewed Precautions, Correct Position ing, W/C Management, Safety Issues Teaching Recipient: Patient Teaching Methods: Demonstration, Discussion Response to Teaching: Reinforcement Needed Time/GCodes Time In: 0900 Time Out: 1000 Total Billed Treatment Time: 60 Total Billed Treatment 1 visit EX 15' FA 45' co-treated with OT from [id number] STONEY HOOPER PT Mar 19, 2021 09:54
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
--- NOTE | 2021-03-19 13:53 | Physical Therapy Daily Note ---
PT Daily Note-Current Subjective Patient in bed pre tx, agrees to PT, voices no complaints of pain. Appearance Patient in bed post tx with nurse call, phone, tray, all needs met. Mental Status Patient Orientation: Person, Place, Situation Transfers SCALE: Activities may be completed with or without assistive devices. 9-Zlstossgzo-zznsqus completes the activity by him/herself with no assistance from a helper. 5-Set-up or Clean-up Assistance-helper sets up or cleans up; patient completes activity. [place] assists only prior to or following the activity. 4-Supervision or Touching Assistance-helper provides verbal cues and/or touching/steadying and/or contact guard assistance as patient completes activity. Assistance may be provided throughout the activity or intermittently. 3-Partial/Moderate Assistance-helper does LESS THAN HALF the effort. [place] lifts, holds or supports trunk or limbs, but provides less than half the effort. 2-Substantial/Maximal Assistance-helper does MORE THAN HALF the effort. [place] lifts or holds trunk or limbs and provides more than half the effort. 3-Boqeotdjl-effmnb does ALL the effort. Patient does none of the effort to complete the activity. Or, the assistance of 2 or more helpers is required for the patient to complete the activity. If activity was not attempted, code reason: 7-Patient Refused. 9-Not Applicable-not attempted and the patient did not perform the activity before the current illness, exacerbation or injury. 10-Not Attempted due to Environmental Limitations-(lack of equipment, weather restraints, etc.). 88-Not Attempted due to Medical Conditions or Safety Concerns. Weight Bearing Right Lower Extremity: Right Weight Bearing/Tolerated Left Lower Extremity: Left Non Weight Bearing NWB LLE AND LUE; MAY WEIGHT-BEAR THROUGH ELBOW ON RUE. WBAT ON RLE. Exercises Supine Ex: Ankle pumps (RLE only), Quad Set, Glut sets, Heel Slides, Short Arc Quads, Straight leg raise, Hip abd/add Supine Reps: 20 LAQ RLE 5 min Treatments LE strengthening Assessment Current Status: Fair Progress decreased pain with activity PT Short Term Goals Short Term Goals Time Frame: Mar 25, 2021 Roll Left & Right: 6 Sit to lyin Lying to sitting on side of be: 6 Sit to stand: 4 Chair/enj-ai-loqyk transfer: 4 Toilet transfer: 4 Wheel 50ft w/2 turns: 4 Wheel 150 feet: 4 PT Care Home Goals Care Home Goals PT Care Home Goals Time Frame: Apr 08, 2021 Roll Left & Right (QC): 6 Sit to Lying (QC): 6 Lying-Sitting on Side/Bed(QC): 6 Sit to Stand (QC): 6 Chair/Mbe-vf-Oawey Xfer(QC): 6 Toilet Transfer (QC): 6 Car Transfer (QC): 6 Does the Patient Walk: No and Walking Goal NOT indicated Walk 10 feet (QC): 88 Walk 50ft with 2 Turns (QC): 88 Walk 150 ft (QC): 88 Walking 10ft on Uneven Surface: 88 1 Step (curb) (QC): 88 4 Steps (QC): 88 12 Steps (QC): 88 Picking up an Object (QC): 88 Wheel 50 feet with 2 turns (QC: 6 Type: Manual Wheel 150 feet: 6 PT Plan Problem List Problem List: Activity Tolerance, Functional Strength, Safety, Balance, Gait, Transfer, Bed Mobility, ROM Treatment/Plan Treatment Plan: Continue Plan of Care Treatment Plan: Bed Mobility, Education, Functional Activity Krystin, Functional Strength, Group Therapy, Gait, Safety, Therapeutic Exercise, Transfers Treatment Duration: Apr 08, 2021 Frequency: 6 times per week Estimated Hrs Per Day: 1.5 hours per day Patient and/or Family Agrees t: Yes Safety Risks/Education Patient Education: Correct Positioning, Safety Issues Teaching Recipient: Patient Teaching Methods: Demonstration, Discussion Response to Teaching: Reinforcement Needed Time/GCodes Time In: 1330 Time Out: 1400 Total Billed Treatment Time: 30 Total Billed Treatment 1 visit EX 30' STONEY HOOPER PT Mar 19, 2021 13:53
[2021-03-19 19:42] VITALS: BP 107/63
[2021-03-19] MEDS: ZOLPIDEM 5 MG (AMBIEN) TAB PO PRN (20:41)
[2021-03-19] MEDS: MELATONIN 10 MG TABLET PO SCH (20:41)
[2021-03-19] MEDS: ALPRAZolam 0.25 MG (XANAX) TAB PO PRN (20:42)
[2021-03-19] MEDS: traZODone 50 MG (DESYREL) TAB PO SCH (20:42)
[2021-03-20] MEDS: ENOXAPARIN 30 MG/0.3 ML (LOVENOX) SYR SC SCH (08:05)
[2021-03-20] MEDS: NICOTINE PATCH REMOVAL TP SCH (08:05)
[2021-03-20] MEDS: NICOTINE 21 MG (NICODERM) PATCH TD SCH (08:05)
[2021-03-20] MEDS: LINEZOLID (ZYVOX) 600 MG TAB PO SCH ×2 (08:05→20:38)
[2021-03-20] MEDS: DICLOFENAC 1% GEL 100 GM (VOLTAREN) TUBE TOP SCH ×3 (08:10→20:44)
[2021-03-20] MEDS: MUPIROCIN 2% OINT 22 GM (BACTROBAN) TUBE TOP SCH ×2 (08:10→20:44)
[2021-03-20] MEDS: BETAMETHASONE/CLOTRIM CREAM (LOTRISONE) 45 GM TP SCH ×2 (08:11→20:44)
[2021-03-20 08:24] VITALS: BP 98/62
--- NOTE | 2021-03-20 08:47 | Physical Therapy Daily Note ---
PT Daily Note-Current Subjective Patient in bed pre tx, already working with OT, agrees to PT. Will be co- treating with OT due to poor patient mobility, strength, endurance, complicated weight bearing status, coordinate UE and LE with activity, safety and chief clerk risk of falls. Appearance Patient in WC post tx, transport is here to take him to a doctor appt. Mental Status Patient Orientation: Person, Place, Situation Transfers SCALE: Activities may be completed with or without assistive devices. 4-Nvzoufdshw-izdmkxp completes the activity by him/herself with no assistance from a helper. 5-Set-up or Clean-up Assistance-helper sets up or cleans up; patient completes activity. [place] assists only prior to or following the activity. 4-Supervision or Touching Assistance-helper provides verbal cues and/or touching/steadying and/or contact guard assistance as patient completes activity. Assistance may be provided throughout the activity or intermittently. 3-Partial/Moderate Assistance-helper does LESS THAN HALF the effort. [place] lifts, holds or supports trunk or limbs, but provides less than half the effort. 2-Substantial/Maximal Assistance-helper does MORE THAN HALF the effort. [place] lifts or holds trunk or limbs and provides more than half the effort. 5-Rgwmtevuz-dymppy does ALL the effort. Patient does none of the effort to complete the activity. Or, the assistance of 2 or more helpers is required for the patient to complete the activity. If activity was not attempted, code reason: 7-Patient Refused. 9-Not Applicable-not attempted and the patient did not perform the activity before the current illness, exacerbation or injury. 10-Not Attempted due to Environmental Limitations-(lack of equipment, weather restraints, etc.). 88-Not Attempted due to Medical Conditions or Safety Concerns. Roll Left & Right (QC): 6 Lying to Sitting/Side of Bed(Q: 6 Sit to Stand (QC): 2 Chair/Dph-jr-Dgrac Xfer(QC): 2 Patient finishes dressing sitting on the side of the bed, transfer to and goes to restroom for some ADL's. Then propel WC to therapy gym. In gym stand pivot transfer to therapy table to work on ball activity working on core strength and shoulder ROM, transport comes to get him not long after starting this. Transfer back to . Weight Bearing Right Lower Extremity: Right Weight Bearing/Tolerated Left Lower Extremity: Left Non Weight Bearing NWB LLE AND LUE; MAY WEIGHT-BEAR THROUGH ELBOW ON RUE. WBAT ON RLE. Wheelchair Training Does the Pt Use a Wheelchair?: Yes Wheel 50 ft with 2 turns (QC): 4 Wheel 150 ft (QC): 4 Type of Wheelchair: Manual 200', SBA, uses right leg to propel back romero Exercises seated ball activity Treatments PT worked on bed mobility and transfers, safety and positioning during ADL's and ball activity, OT worked on dressing, ADL's, ball activity, safety and reduce risk of falls. Assessment Current Status: Poor Progress Patient has made slight improvements in RLE strength but as long as he is NWB on both upper extremities and has a right ankle contracture he will have a lot of difficulty with transfers PT Short Term Goals Short Term Goals Time Frame: Mar 25, 2021 Roll Left & Right: 6 Sit to lyin Lying to sitting on side of be: 6 Sit to stand: 4 Chair/kon-uy-dsykg transfer: 4 Toilet transfer: 4 Wheel 50ft w/2 turns: 4 Wheel 150 feet: 4 PT Apprentice Painter Neckties Goals Apprentice Painter Neckties Goals PT Custodial Goals Time Frame: Apr 08, 2021 Roll Left & Right (QC): 6 Sit to Lying (QC): 6 Lying-Sitting on Side/Bed(QC): 6 Sit to Stand (QC): 6 Chair/Vlf-gy-Glczf Xfer(QC): 6 Toilet Transfer (QC): 6 Car Transfer (QC): 6 Does the Patient Walk: No and Walking Goal NOT indicated Walk 10 feet (QC): 88 Walk 50ft with 2 Turns (QC): 88 Walk 150 ft (QC): 88 Walking 10ft on Uneven Surface: 88 1 Step (curb) (QC): 88 4 Steps (QC): 88 12 Steps (QC): 88 Picking up an Object (QC): 88 Wheel 50 feet with 2 turns (QC: 6 Type: Manual Wheel 150 feet: 6 PT Plan Problem List Problem List: Activity Tolerance, Functional Strength, Safety, Balance, Gait, Transfer, Bed Mobility, ROM Treatment/Plan Treatment Plan: Continue Plan of Care Treatment Plan: Bed Mobility, Education, Functional Activity Krystin, Functional Strength, Group Therapy, Gait, Safety, Therapeutic Exercise, Transfers Treatment Duration: Apr 08, 2021 Frequency: 6 times per week Estimated Hrs Per Day: 1.5 hours per day Patient and/or Family Agrees t: Yes Safety Risks/Education Patient Education: Transfer Techniques, Reviewed Precautions, Correct Positioning, W/C Management, Safety Issues Teaching Recipient: Patient Teaching Methods: Demonstration, Discussion Response to Teaching: Reinforcement Needed Time/GCodes Time In: 0755 Time Out: 0840 Total Billed Treatment Time: 45 Total Billed Treatment 1 visit FA 45' STONEY HOOPER PT Mar 20, 2021 08:47
--- NOTE | 2021-03-20 08:49 | Occupational Ther Daily Note ---
OT Current Status-Daily Note Subjective Pt reports having a doctors appointment at [facility] this date. Appearance Pt left in w/c with transport staff. Mental Status/Objective Patient Orientation: Person, Situation ADL-Treatment Therapy Code Descriptions/Definitions Functional [place] Measure: 0=Not Assessed/NA 4=Minimal Assistance 1=Total Assistance 5=Supervision or Setup 2=Maximal Assistance 6=Modified [place] 3=Moderate Assistance 7=Complete IndependenceSCALE: Activities may be completed with or without assistive devices. 4-Xojquqiqkf-hcfpaoc completes the activity by him/herself with no assistance from a helper. 5-Set-up or Clean-up Assistance-helper sets up or cleans up; patient completes activity. [place] assists only prior to or following the activity. 4-Supervision or Touching Assistance-helper provides verbal cues and/or touching/steadying and/or contact guard assistance as patient completes activity. Assistance may be provided throughout the activity or intermittently. 3-Partial/Moderate Assistance-helper does LESS THAN HALF the effort. [place] lifts, holds or supports trunk or limbs, but provides less than half the effort. 2-Substantial/Maximal Assistance-helper does MORE THAN HALF the effort. [place] lifts or holds trunk or limbs and provides more than half the effort. 2-Dugqgcolh-vkcyyq does ALL the effort. Patient does none of the effort to complete the activity. Or, the assistance of 2 or more helpers is required for the patient to complete the activity. If activity was not attempted, code reason: 7-Patient Refused. 9-Not Applicable-not attempted and the patient did not perform the activity before the current illness, exacerbation or injury. 10-Not Attempted due to Environmental Limitations-(lack of equipment, weather restraints, etc.). 88-Not Attempted due to Medical Conditions or Safety Concerns. Oral Hygiene (QC): 5 Bathing Location: L Arm, R Arm, Perineal Area Upper Body Dressing (QC): 5 Lower Body Dressing (QC): 4 On/Off Footwear: 3 Partial sponge bath and dressing tasks performed sitting EOB. Good recall of darline technique to wash L axilla, min a for thoroughness only. While in long sitting, he utilized director of public relations to thread RLE into pants. Improved speed noted with task. Clothing management performed sitting and leaning R/L while pulling up to hips; extra time but no assist required. Assist needed to don sock onto sock aid, pt able to don over foot without assist. Stand pivot from bed (elevated height) to w/c with mod a. He propelled w/c into bathroom to perform grooming tasks.He continues to only use L hand during task but incorporated R hand when needed, such as stabilizing toothbrush when applying toothpaste. Extra time required for all ADLs. Pt propelled w/c throughout unit with use of RLE, cues for safety. While in gym he performed seated activity while catching ball in different planes. Emphasis on improving core strength needed for adls and transfers. Pt able to catch ball but with reduced veterinary pharmacologist on RUE due to cast and limited flexion of digits. Difficulty noted with tossing ball back to therapist with reports of pain on L forearm. No lob with task. Activity ended early due to transport staff here to take pt to follow up appointment. Co-treat with PT [id number] for safety and instruction Education OT Patient Education: Correct positioning, Disease process, Modified ADL techniques, Progress toward Goal/Update tx plan, Purpose of tx/functional activities, Reviewed precautions, Rehab process, Safety issues, Transfer techniques, Use of adapted equipment, W/C management Teaching Recipient: Patient Teaching Methods: Demonstration, Discussion Response to Teaching: Verbalize Understanding, Return Demonstration, Reinforcement Needed OT Short Term Goals Short Term Goals Time Frame: Mar 26, 2021 Eatin Oral hygiene: 4 Toileting hygiene: 3 Shower/bathe self: 3 Upper body dressin Lower body dressin Putting on/taking off footwear: 3 OT Java J2Ee Software Engineer Goals Java J2Ee Software Engineer Goals Time Frame: Apr 06, 2021 Eating (QC): 6 Oral Hygiene (QC): 5 Toileting Hygiene (QC): 4 Shower/Bathe Self (QC): 4 Upper Body Dressing (QC): 5 Lower Body Dressing (QC): 4 On/Off Footwear (QC): 4 1=Demonstrate adherence to instructed precautions during ADL tasks. 2=Patient will verbalize/demonstrate understanding of assistive devices/modifications for ADL. 3=Patient will improve strength/tolerance for activity to enable patient to perform ADL's. OT Education/Plan Problem List/Assessment Assessment: Decreased Activ Tolerance, Decreased Safety Aware, Decreased UE Strength, Dependent Transfers, Impaired Cognition, Impaired Coordination, Impaired Funct Balance, Impaired I ADL's, Impaired Self-Care Skills, Restricted Funct UE ROM Discharge Recommendations Plan/Recommendations: Continue POC Treatment Plan/Plan of Care Treatment,Training & Education: Yes Patient would benefit from OT for education, treatment and training to promote independence in ADL's, mobility, safety and/or upper extremity function for ADL's. Plan of Care: ADL Retraining, Functional Mobility, Group Exercise/Act as Ind, Orthotic Fitting/Training, UE Funct Exercise/Act, W/C Management Training Treatment Duration: Apr 06, 2021 Frequency: At least 5 of 7 days/Wk (IRF) Estimated Hrs Per Day: 1.5 hours per day Agreement: Yes Rehab Potential: Fair Time/GCodes Start Time: 07:40 Stop Time: 08:40 Total Time Billed (hr/min): 60 Billed Treatment Time 1 visit ADL x3 (45 min) FA (15 min) Co-treat with PT ([id number]) Rukhsana Anderson OT Mar 20, 2021 08:49
[2021-03-20] MEDS: SENNA W/DOCUSATE (SENOKOT S) TABLET PO SCH ×2 (11:28→20:44)
[2021-03-20] MEDS: polyethylene glycoL POWDER 17 GM (MIRALAX) PACK PO SCH ×2 (11:28→19:45)
[2021-03-20] MEDS: DOCUSATE SODIUM 100 MG (COLACE) CAP PO SCH ×2 (11:28→20:43)
--- NOTE | 2021-03-20 13:59 | Physical Therapy Daily Note ---
PT Daily Note-Current Subjective Patient is back from his doctors appt. Agrees to PT. Patient states he is pretty uncomfortable and has a lot of pain from the trip but rates pain at 5/10. Nurse gives him pain meds. Will be co-treating with OT due to poor patient mobility, strength, endurance, complicated weight bearing restrictions, increased pain, coordinate UE and LE with activity, safety and reduce risk of falls. I think it needs to be clarified but it seems that patient's weight bearing restrictions remain unchanged but he can remove his braces when at rest in bed on the left leg and for hygiene and ROM on the right arm. Appearance Patient in bed post tx with nurse call, phone, tray, all needs met. Mental Status Patient Orientation: Person, Place, Situation Transfers SCALE: Activities may be completed with or without assistive devices. 8-Ezewmojnmx-mahqpfe completes the activity by him/herself with no assistance from a helper. 5-Set-up or Clean-up Assistance-helper sets up or cleans up; patient completes activity. [place] assists only prior to or following the activity. 4-Supervision or Touching Assistance-helper provides verbal cues and/or touching/steadying and/or contact guard assistance as patient completes activity. Assistance may be provided throughout the activity or intermittently. 3-Partial/Moderate Assistance-helper does LESS THAN HALF the effort. [place] lifts, holds or supports trunk or limbs, but provides less than half the effort. 2-Substantial/Maximal Assistance-helper does MORE THAN HALF the effort. [place] lifts or holds trunk or limbs and provides more than half the effort. 7-Mmmqkyetf-vxfxxy does ALL the effort. Patient does none of the effort to complete the activity. Or, the assistance of 2 or more helpers is required for the patient to complete the activity. If activity was not attempted, code reason: 7-Patient Refused. 9-Not Applicable-not attempted and the patient did not perform the activity before the current illness, exacerbation or injury. 10-Not Attempted due to Environmental Limitations-(lack of equipment, weather restraints, etc.). 88-Not Attempted due to Medical Conditions or Safety Concerns. Weight Bearing Right Lower Extremity: Right Weight Bearing/Tolerated Left Lower Extremity: Left Non Weight Bearing NWB LLE AND LUE; MAY WEIGHT-BEAR THROUGH ELBOW ON RUE. WBAT ON RLE. Exercises Supine Ex: Ankle pumps (RLE), Quad Set, Glut sets, Heel Slides (RLE), Straight leg raise, Hip abd/add Supine Reps: 20 Treatments PT performed LE ROM, positioning and education of weight bearing restrictions and bracing rules, OT performed UE ROM and education. Assessment Current Status: Poor Progress No change in mobility PT Short Term Goals Short Term Goals Time Frame: Mar 25, 2021 Roll Left & Right: 6 Sit to lyin Lying to sitting on side of be: 6 Sit to stand: 4 Chair/yhz-vi-pqcdh transfer: 4 Toilet transfer: 4 Wheel 50ft w/2 turns: 4 Wheel 150 feet: 4 PT Pressure Sealer And Tester Goals Snf Goals PT Snf Goals Time Frame: Apr 08, 2021 Roll Left & Right (QC): 6 Sit to Lying (QC): 6 Lying-Sitting on Side/Bed(QC): 6 Sit to Stand (QC): 6 Chair/Lek-ot-Lzxqs Xfer(QC): 6 Toilet Transfer (QC): 6 Car Transfer (QC): 6 Does the Patient Walk: No and Walking Goal NOT indicated Walk 10 feet (QC): 88 Walk 50ft with 2 Turns (QC): 88 Walk 150 ft (QC): 88 Walking 10ft on Uneven Surface: 88 1 Step (curb) (QC): 88 4 Steps (QC): 88 12 Steps (QC): 88 Picking up an Object (QC): 88 Wheel 50 feet with 2 turns (QC: 6 Type: Manual Wheel 150 feet: 6 PT Plan Problem List Problem List: Activity Tolerance, Functional Strength, Safety, Balance, Gait, Transfer, Bed Mobility, ROM Treatment/Plan Treatment Plan: Continue Plan of Care Treatment Plan: Bed Mobility, Education, Functional Activity Krystin, Functional Strength, Group Therapy, Gait, Safety, Therapeutic Exercise, Transfers Treatment Duration: Apr 08, 2021 Frequency: 6 times per week Estimated Hrs Per Day: 1.5 hours per day Patient and/or Family Agrees t: Yes Safety Risks/Education Patient Education: Reviewed Precautions, Correct Positioning, Reviewed Don/Doff Brace, Safety Issues Teaching Recipient: Patient Teaching Methods: Demonstration, Discussion Response to Teaching: Reinforcement Needed Time/GCodes Time In: 1315 Time Out: 1400 Total Billed Treatment Time: 45 Total Billed Treatment 1 visit EX 45' co-treated for 45' STONEY HOOPER PT Mar 20, 2021 13:59
--- NOTE | 2021-03-20 14:05 | Occupational Ther Daily Note ---
OT Current Status-Daily Note Subjective Pt reports pain as 5/10, pain meds given by RN Appearance Pt left supine in bed, physical therapy present in room ADL-Treatment Therapy Code Descriptions/Definitions Functional [place] Measure: 0=Not Assessed/NA 4=Minimal Assistance 1=Total Assistance 5=Supervision or Setup 2=Maximal Assistance 6=Modified [place] 3=Moderate Assistance 7=Complete IndependenceSCALE: Activities may be completed with or without assistive devices. 3-Wxsemhqvue-erphngn completes the activity by him/herself with no assistance from a helper. 5-Set-up or Clean-up Assistance-helper sets up or cleans up; patient completes activity. [place] assists only prior to or following the activity. 4-Supervision or Touching Assistance-helper provides verbal cues and/or touching/steadying and/or contact guard assistance as patient completes activity. Assistance may be provided throughout the activity or intermittently. 3-Partial/Moderate Assistance-helper does LESS THAN HALF the effort. [place] lifts, holds or supports trunk or limbs, but provides less than half the effort. 2-Substantial/Maximal Assistance-helper does MORE THAN HALF the effort. [place] lifts or holds trunk or limbs and provides more than half the effort. 8-Afozhkkuy-oavvmi does ALL the effort. Patient does none of the effort to complete the activity. Or, the assistance of 2 or more helpers is required for the patient to complete the activity. If activity was not attempted, code reason: 7-Patient Refused. 9-Not Applicable-not attempted and the patient did not perform the activity before the current illness, exacerbation or injury. 10-Not Attempted due to Environmental Limitations-(lack of equipment, weather restraints, etc.). 88-Not Attempted due to Medical Conditions or Safety Concerns. Other Treatment Pt returned from follow up appointment at [place]. Paper order specifics listed below: 1. while patient lying down or resting, open brace or take brace off for skin to rest 2. pt can WBAT through RLE 3. NWB LLE 4. Pt placed in Left posterior elbow splint, can be removed for hygiene, NWB LUE 5. Pt can WB R arm 6. B/L hand therapy, wrist 45 degrees, 7. Lt elbow ROM 30-120 degrees 8. No pronation/supination. Many discrepancies in written order above. Call/voicemail made to [facility] to clarify. Pt currently with R wrist brace, no L elbow splint present. Is no supination/pronation for both UE's? According to patient's sister (who was at appointment), order is for WB through R elbow only. During session, OT/PT focusing on ROM and strengthening of Upper/lower extremities. OT performed PROM to R wrist (flexion/extension (, radial/ulnar deviation) and digits (pip/dip) within pain tolerance. Fingers/thumb contracted, limited flexion/extension available at this time. AROM at elbow x10 reps. Education OT Patient Education: Correct positioning, Exercise program, Instructions don/doff splint/brace Teaching Recipient: Patient Teaching Methods: Demonstration, Discussion Response to Teaching: Return Demonstration, Reinforcement Needed OT Short Term Goals Short Term Goals Time Frame: Mar 26, 2021 Eatin Oral hygiene: 4 Toileting hygiene: 3 Shower/bathe self: 3 Upper body dressin Lower body dressin Putting on/taking off footwear: 3 OT Half-Way Goals Printed Circuit Board Pcb Draftsman Goals Time Frame: Apr 06, 2021 Eating (QC): 6 Oral Hygiene (QC): 5 Toileting Hygiene (QC): 4 Shower/Bathe Self (QC): 4 Upper Body Dressing (QC): 5 Lower Body Dressing (QC): 4 On/Off Footwear (QC): 4 1=Demonstrate adherence to instructed precautions during ADL tasks. 2=Patient will verbalize/demonstrate understanding of assistive devices/modifications for ADL. 3=Patient will improve strength/tolerance for activity to enable patient to perform ADL's. OT Education/Plan Problem List/Assessment Assessment: Decreased Activ Tolerance, Decreased Safety Aware, Decreased UE Strength, Dependent Transfers, Impaired Cognition, Impaired Coordination, Impaired Funct Balance, Impaired I ADL's, Impaired Self-Care Skills, Restricted Funct UE ROM Discharge Recommendations Plan/Recommendations: Continue POC Treatment Plan/Plan of Care Patient would benefit from OT for education, treatment and training to promote independence in ADL's, mobility, safety and/or upper extremity function for ADL's. Plan of Care: ADL Retraining, Functional Mobility, Group Exercise/Act as Ind, Orthotic Fitting/Training, UE Funct Exercise/Act, W/C Management Training Treatment Duration: Apr 06, 2021 Frequency: At least 5 of 7 days/Wk (IRF) Estimated Hrs Per Day: 1.5 hours per day Agreement: Yes Rehab Potential: Fair Time/GCodes Start Time: 13:15 Stop Time: 13:50 Total Time Billed (hr/min): 35 Billed Treatment Time 1 visit EX x2 Rukhsana Anderson OT Mar 20, 2021 14:05
--- NOTE | 2021-03-20 16:51 | Podiatry Progress Note ---
Standard Progress Note Progress Notes/Assess & Plan Date Seen by a Provider: Mar 20, 2021 Time Seen by a Provider: 16:49 Progress/Assessment & Plan Consultation dictated. Foot care given. Follow up in office as needed. Final Diagnosis Neuropathy, Onychomycosis, Equinus, right foot KEVYN MAN DPM Mar 20, 2021 16:51
[2021-03-20] MEDS: traZODone 50 MG (DESYREL) TAB PO SCH (20:38)
[2021-03-20] MEDS: ZOLPIDEM 5 MG (AMBIEN) TAB PO PRN (20:38)
[2021-03-20] MEDS: MELATONIN 10 MG TABLET PO SCH (20:38)
[2021-03-20 20:46] VITALS: BP 105/64
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
[2021-03-21 08:15] VITALS: BP 109/65
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
--- NOTE | 2021-03-21 09:04 | Physical Therapy Daily Note ---
PT Daily Note-Current Subjective Pt in bed upon arrival and agrees to co-treat. Pt has no c/o pain at this time. Co-treat with 2 skilled clinicians d/t pt weakness, poor endurance, mobility, to coordinate UE/LE, for safety, and to decrease risk of falls. Mental Status Patient Orientation: Person, Place, Time, Situation Transfers SCALE: Activities may be completed with or without assistive devices. 9-Rkerteuggl-octjzfg completes the activity by him/herself with no assistance from a helper. 5-Set-up or Clean-up Assistance-helper sets up or cleans up; patient completes activity. [place] assists only prior to or following the activity. 4-Supervision or Touching Assistance-helper provides verbal cues and/or touching/steadying and/or contact guard assistance as patient completes activi ty. Assistance may be provided throughout the activity or intermittently. 3-Partial/Moderate Assistance-helper does LESS THAN HALF the effort. [place] lifts, holds or supports trunk or limbs, but provides less than half the effort. 2-Substantial/Maximal Assistance-helper does MORE THAN HALF the effort. [place] lifts or holds trunk or limbs and provides more than half the effort. 1-Bugbufgte-ymizpk does ALL the effort. Patient does none of the effort to complete the activity. Or, the assistance of 2 or more helpers is required for the patient to complete the activity. If activity was not attempted, code reason: 7-Patient Refused. 9-Not Applicable-not attempted and the patient did not perform the activity before the current illness, exacerbation or injury. 10-Not Attempted due to Environmental Limitations-(lack of equipment, weather restraints, etc.). 88-Not Attempted due to Medical Conditions or Safety Concerns. Roll Left & Right (QC): 6 Sit to Lying (QC): 6 Sit to Stand (QC): 3 Chair/Izj-hw-Xamic Xfer(QC): 3 Weight Bearing Right Lower Extremity: Right Weight Bearing/Tolerated Left Lower Extremity: Left Non Weight Bearing NWB LLE AND LUE; MAY WEIGHT-BEAR THROUGH ELBOW ON RUE. WBAT ON RLE. Wheelchair Training Does the Pt Use a Wheelchair?: Yes Wheel 50 ft with 2 turns (QC): 4 Wheel 150 ft (QC): 4 Type of Wheelchair: Manual Pt propels WC backwards w/ use of R LE and VC used for safety awareness. Exercises Standing: Sit to Stand Treatments Co-treat: OT focused on bathing, dressing, and UE positioning. PT focused on transfers, mobility, and LE positioning/strengthening. Pt supine to sit and SPT to WC ModA. Pt then transfers to shower bench ModA and completes shower (see OT note). Pt transfers back to WC to get dressed, sit to stand to don pants. Pt then propels WC to therapy gym and completes 3 sit to stands w/ use of R elbow on // bars and ModA x2. First sit to stand approx 15 seconds, 2nd 34 seconds, 3rd 64 seconds. Pt remains in WC w/ OT post tx, all needs met. Assessment Current Status: Poor Progress No progress in strength or mobility. Limited d/t WB precautions PT Short Term Goals Short Term Goals Time Frame: Mar 25, 2021 Roll Left & Right: 6 Sit to lyin Lying to sitting on side of be: 6 Sit to stand: 4 Chair/yoj-sq-ocoat transfer: 4 Toilet transfer: 4 Wheel 50ft w/2 turns: 4 Wheel 150 feet: 4 PT Skilled Nursing Goals Practice Consultant Goals PT Practice Consultant Goals Time Frame: Apr 08, 2021 Roll Left & Right (QC): 6 Sit to Lying (QC): 6 Lying-Sitting on Side/Bed(QC): 6 Sit to Stand (QC): 6 Chair/Wzb-aj-Jbghi Xfer(QC): 6 Toilet Transfer (QC): 6 Car Transfer (QC): 6 Does the Patient Walk: No and Walking Goal NOT indicated Walk 10 feet (QC): 88 Walk 50ft with 2 Turns (QC): 88 Walk 150 ft (QC): 88 Walking 10ft on Uneven Surface: 88 1 Step (curb) (QC): 88 4 Steps (QC): 88 12 Steps (QC): 88 Picking up an Object (QC): 88 Wheel 50 feet with 2 turns (QC: 6 Type: Manual Wheel 150 feet: 6 PT Plan Treatment/Plan Treatment Plan: Continue Plan of Care Treatment Plan: Bed Mobility, Education, Functional Activity Krystin, Functional Strength, Group Therapy, Gait, Safety, Therapeutic Exercise, Transfers Treatment Duration: Apr 08, 2021 Frequency: 6 times per week Estimated Hrs Per Day: 1.5 hours per day Patient and/or Family Agrees t: Yes Time/GCodes Time In: 800 Time Out: 900 Total Billed Treatment Time: 60 Total Billed Treatment 1, FA x3, EX NORI BAKER 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
[2021-03-21] MEDS: NICOTINE 21 MG (NICODERM) PATCH TD SCH (09:10)
[2021-03-21] MEDS: SENNA W/DOCUSATE (SENOKOT S) TABLET PO SCH ×2 (09:11→20:57)
[2021-03-21] MEDS: NICOTINE PATCH REMOVAL TP SCH (09:11)
[2021-03-21] MEDS: ENOXAPARIN 30 MG/0.3 ML (LOVENOX) SYR SC SCH (09:11)
[2021-03-21] MEDS: LINEZOLID (ZYVOX) 600 MG TAB PO SCH ×2 (09:12→20:46)
[2021-03-21] MEDS: polyethylene glycoL POWDER 17 GM (MIRALAX) PACK PO SCH ×2 (09:12→20:56)
[2021-03-21] MEDS: DOCUSATE SODIUM 100 MG (COLACE) CAP PO SCH ×2 (09:12→20:56)
--- NOTE | 2021-03-21 09:20 | Occupational Ther Daily Note ---
OT Current Status-Daily Note Subjective Pt reports poor sleep, agreeable to treatment. Appearance Left supine in bed, all needs within reach. ADL-Treatment Therapy Code Descriptions/Definitions Functional [place] Measure: 0=Not Assessed/NA 4=Minimal Assistance 1=Total Assistance 5=Supervision or Setup 2=Maximal Assistance 6=Modified [place] 3=Moderate Assistance 7=Complete IndependenceSCALE: Activities may be completed with or without assistive devices. 0-Jglpqblxxw-lygmqda completes the activity by him/herself with no assistance from a helper. 5-Set-up or Clean-up Assistance-helper sets up or cleans up; patient completes activity. [place] assists only prior to or following the activity. 4-Supervision or Touching Assistance-helper provides verbal cues and/or touching/steadying and/or contact guard assistance as patient completes a ctivity. Assistance may be provided throughout the activity or intermittently. 3-Partial/Moderate Assistance-helper does LESS THAN HALF the effort. [place] lifts, holds or supports trunk or limbs, but provides less than half the effort. 2-Substantial/Maximal Assistance-helper does MORE THAN HALF the effort. [place] lifts or holds trunk or limbs and provides more than half the effort. 2-Saxkkokox-dhyxut does ALL the effort. Patient does none of the effort to complete the activity. Or, the assistance of 2 or more helpers is required for the patient to complete the activity. If activity was not attempted, code reason: 7-Patient Refused. 9-Not Applicable-not attempted and the patient did not perform the activity before the current illness, exacerbation or injury. 10-Not Attempted due to Environmental Limitations-(lack of equipment, weather restraints, etc.). 88-Not Attempted due to Medical Conditions or Safety Concerns. Oral Hygiene (QC): 4 Bathing Location: L Arm, R Arm, L Upper Leg, R Upper Leg, L Lower Leg (including foot), R Lower Leg (including foot), Chest, Abdomen, Buttocks, Pe rineal Area Shower/Bathe Self (QC): 3 Upper Body Dressing (QC): 4 Lower Body Dressing (QC): 1 Co-treat with 2 skilled clinicians d/t pt weakness, poor endurance, mobility, to coordinate UE/LE, for safety, and to decrease risk of falls. Shower performed; 100% completed in sitting. Prior to shower, OT/PT wrapped RUE and L residual limb. Extremities/incisions c/d/i post bathing task. Cue to wash buttocks with reminder to perform lateral pelvic leans to R/L in order to reach. Assist needed to wash R side. Assist needed to wash R foot due to poor flexibility. Pt able to reach Bilateral axillas this date without assist. He sat on shower bench to don shirt, set up/sup for safety. Mod a to transfer back to w/c to don pants. Pt able to thread RLE without use of skewer up this date, extra time only. Lower QC score secondary to performing in standing vs bed level this date. Assist x2 for clothing management as one clinician maintained patients balance, mod-max a while second pulled pants up to waist. Grooming tasks performed seated in w/c with set up, extra time for manipulation/bilateral integration but no assist required. Other Treatment Pt propelled w/c to/from therapy gym with SBA and use of RLE only. He completed sit<>stands x3 at parallel bars with emphasis on improving LE strength, posture, and balance. Pt able to bear weight through R elbow only. OT provided dycem on parallel bar to keep elbow from sliding. Mod a x2 to stand/maintain balance. Cues for upright posture and to use reflection as visual aid. Encouragement needed to increase standing time with each standing bout. When pt becomes distracted in conversation, he is able to stand for longer periods of time. Standing times include: 0:15, 0:34, and 1:04. Pt fatigues easily and requires several lengthy sitting rest breaks. Education OT Patient Education: Correct positioning, Disease process, Energy conservation, Instructions don/doff splint/brace, Modified ADL techniques, Progress toward Goal/Update tx plan, Purpose of tx/functional activities, Reviewed precautions, Rehab process, Safety issues, Transfer techniques, Use of adapted equipment, W/C management Teaching Recipient: Patient Teaching Methods: Demonstration, Discussion Response to Teaching: Verbalize Understanding, Return Demonstration, Reinforcement Needed OT Short Term Goals Short Term Goals Time Frame: Mar 26, 2021 Eatin Oral hygiene: 4 Toileting hygiene: 3 Shower/bathe self: 3 Upper body dressin Lower body dressin Putting on/taking off footwear: 3 OT Fdc Goals Test Lead Goals Time Frame: Apr 06, 2021 Eating (QC): 6 Oral Hygiene (QC): 5 Toileting Hygiene (QC): 4 Shower/Bathe Self (QC): 4 Upper Body Dressing (QC): 5 Lower Body Dressing (QC): 4 On/Off Footwear (QC): 4 1=Demonstrate adherence to instructed precautions during ADL tasks. 2=Patient will verbalize/demonstrate understanding of assistive devices/modifications for ADL. 3=Patient will improve strength/tolerance for activity to enable patient to perform ADL's. OT Education/Plan Problem List/Assessment Assessment: Decreased Activ Tolerance, Decreased Safety Aware, Decreased UE Strength, Dependent Transfers, Impaired Coordination, Impaired Funct Balance, Impaired I ADL's, Impaired Self-Care Skills, Restricted Funct UE ROM Discharge Recommendations Plan/Recommendations: Continue POC Therapy Discharge Recommendati: Post Acute OT Treatment Plan/Plan of Care Treatment,Training & Education: Yes Patient would benefit from OT for education, treatment and training to promote independence in ADL's, mobility, safety and/or upper extremity function for ADL's. Plan of Care: ADL Retraining, Functional Mobility, Group Exercise/Act as Ind, Orthotic Fitting/Training, UE Funct Exercise/Act, W/C Management Training Treatment Duration: Apr 06, 2021 Frequency: At least 5 of 7 days/Wk (IRF) Estimated Hrs Per Day: 1.5 hours per day Agreement: Yes Rehab Potential: Fair Time/GCodes Start Time: 07:50 Stop Time: 09:20 Total Time Billed (hr/min): 90 Billed Treatment Time 1 visit, ADL x4 FA x2 Co-treat with PT for 60 min Rukhsana Anderson OT Mar 21, 2021 09:20
--- NOTE | 2021-03-21 11:30 | Physical Therapy Daily Note ---
PT Daily Note-Current Subjective Pt in bed upon arrival and agrees to PT. Pt has no reports of pain at his time. Mental Status Patient Orientation: Person, Place, Time, Situation Attachments: Other-See Comments (mask while outside of room) Transfers SCALE: Activities may be completed with or without assistive devices. 9-Ydxzohlxil-slajmxm completes the activity by him/herself with no assistance from a helper. 5-Set-up or Clean-up Assistance-helper sets up or cleans up; patient completes activity. [place] assists only prior to or following the activity. 4-Supervision or Touching Assistance-helper provides verbal cues and/or touching/steadying and/or contact guard assistance as patient completes activity. Assistance may be provided throughout the activity or intermittently. 3-Partial/Moderate Assistance-helper does LESS THAN HALF the effort. [place] lifts, holds or supports trunk or limbs, but provides less than half the effort. 2-Substantial/Maximal Assistance-helper does MORE THAN HALF the effort. [place] lifts or holds trunk or limbs and provides more than half the effort. 2-Cehtnfyea-brxkyr does ALL the effort. Patient does none of the effort to complete the activity. Or, the assistance of 2 or more helpers is required for the patient to complete the activity. If activity was not attempted, code reason: 7-Patient Refused. 9-Not Applicable-not attempted and the patient did not perform the activity before the current illness, exacerbation or injury. 10-Not Attempted due to Environmental Limitations-(lack of equipment, weather restraints, etc.). 88-Not Attempted due to Medical Conditions or Safety Concerns. Roll Left & Right (QC): 5 Sit to Lying (QC): 5 Lying to Sitting/Side of Bed(Q: 5 Sit to Stand (QC): 3 Weight Bearing Right Lower Extremity: Right Weight Bearing/Tolerated Left Lower Extremity: Left Non Weight Bearing NWB LLE AND LUE; MAY WEIGHT-BEAR THROUGH ELBOW ON RUE. WBAT ON RLE. Wheelchair Training Does the Pt Use a Wheelchair?: Yes Wheel 50 ft with 2 turns (QC): 4 Wheel 150 ft (QC): 4 Type of Wheelchair: Manual Pt requires V/C for safety awareness Exercises Seated Therapy Exercises: Ankle pumps, Long arc quads, Hip flexion Treatments Pt in bed upon arrival and performs supine to sit TF independently and then TF from bed to WC and requires modA. Therapist wheels pt to barker then pt able to wheel himself approx. 150' before needing rest break. Pt then performs seated exs. Pt then wheels himself back to room required V/C for to avoid objects for safety. Pt then TF from WC back to pt bed and required modA. Pt in bed all needs met call light in hand and PT exits the room. Assessment Current Status: Good Progress, Fair Progress Pt required skilled verbal cues about hand placement when performing bed to chair TF and V/C for safety while using WC. PT Short Term Goals Short Term Goals Time Frame: Mar 25, 2021 Roll Left & Right: 6 Sit to lyin Lying to sitting on side of be: 6 Sit to stand: 4 Chair/bju-qb-rfbhl transfer: 4 Toilet transfer: 4 Wheel 50ft w/2 turns: 4 Wheel 150 feet: 4 PT Binder Operator Goals Shelter Goals PT Binder Operator Goals Time Frame: Apr 08, 2021 Roll Left & Right (QC): 6 Sit to Lying (QC): 6 Lying-Sitting on Side/Bed(QC): 6 Sit to Stand (QC): 6 Chair/Pgb-lv-Cuulp Xfer(QC): 6 Toilet Transfer (QC): 6 Car Transfer (QC): 6 Does the Patient Walk: No and Walking Goal NOT indicated Walk 10 feet (QC): 88 Walk 50ft with 2 Turns (QC): 88 Walk 150 ft (QC): 88 Walking 10ft on Uneven Surface: 88 1 Step (curb) (QC): 88 4 Steps (QC): 88 12 Steps (QC): 88 Picking up an Object (QC): 88 Wheel 50 feet with 2 turns (QC: 6 Type: Manual Wheel 150 feet: 6 PT Plan Problem List Problem List: Activity Tolerance, Functional Strength, Safety Treatment/Plan Treatment Plan: Continue Plan of Care Treatment Plan: Bed Mobility, Education, Functional Activity Krystin, Functional Strength, Group Therapy, Gait, Safety, Therapeutic Exercise, Transfers Treatment Duration: Apr 08, 2021 Frequency: 6 times per week Estimated Hrs Per Day: 1.5 hours per day Patient and/or Family Agrees t: Yes Safety Risks/Education Patient Education: Transfer Techniques Teaching Recipient: Patient Teaching Methods: Demonstration, Discussion Time/GCodes Time In: 1100 Time Out: 1130 Total Billed Treatment Time: 30 Total Billed Treatment 1, [facility], EX MITA UMANA BULK PALLET BUILDER Mar 21, 2021 11:30
[2021-03-21] MEDS: BETAMETHASONE/CLOTRIM CREAM (LOTRISONE) 45 GM TP SCH ×2 (11:33→20:47)
[2021-03-21] MEDS: DICLOFENAC 1% GEL 100 GM (VOLTAREN) TUBE TOP SCH ×3 (11:33→20:47)
[2021-03-21] MEDS: MUPIROCIN 2% OINT 22 GM (BACTROBAN) TUBE TOP SCH ×2 (11:34→20:47)
[2021-03-21 20:00] VITALS: BP 106/64
[2021-03-21] MEDS: ZOLPIDEM 5 MG (AMBIEN) TAB PO PRN (20:46)
[2021-03-21] MEDS: traZODone 50 MG (DESYREL) TAB PO SCH (20:46)
[2021-03-21] MEDS: MELATONIN 10 MG TABLET PO SCH (20:46)
[2021-03-22] MEDS: ALPRAZolam 0.25 MG (XANAX) TAB PO PRN (00:08)
[2021-03-22 06:30] LABS: BASOPHILS % (AUTO) 1 % (0-10); EOSINOPHILS # (AUTO) 0.1 10^3/uL (0.0-0.3); EOSINOPHILS % (AUTO) 3 % (0-10); HEMATOCRIT 33 % (40-54); HEMOGLOBIN 10.2 g/dL (13.3-17.7); LYMPHOCYTES # (AUTO) 1.8 10^3/uL (1.0-4.0); LYMPHOCYTES % (AUTO) 43 % (12-44); MEAN CORPUSCULAR HEMOGLOBIN 29 pg (25-34); MEAN CORPUSCULAR HGB CONC 31 g/dL (32-36); MEAN CORPUSCULAR VOLUME 95 fL (80-99); MEAN PLATELET VOLUME 10.3 fL (9.0-12.2); MONOCYTES # (AUTO) 0.4 10^3/uL (0.0-1.0); MONOCYTES % (AUTO) 10 % (0-12); NEUTROPHILS # (AUTO) 1.8 10^3/uL (1.8-7.8); NEUTROPHILS % (AUTO) 43 % (42-75); PLATELET COUNT 297 10^3/uL (130-400); WHITE BLOOD COUNT 4.1 10^3/uL (4.3-11.0)
[2021-03-22 06:55] LABS: ALBUMIN 3.1 GM/DL (3.2-4.5); BILIRUBIN,TOTAL 0.4 MG/DL (0.1-1.0); CALCIUM 9.2 MG/DL (8.5-10.1); CREATININE SERUM 0.67 MG/DL (0.60-1.30); TOTAL PROTEIN 5.8 GM/DL (6.4-8.2)
[2021-03-22 08:28] VITALS: BP 95/68
[2021-03-22] MEDS: LINEZOLID (ZYVOX) 600 MG TAB PO SCH ×2 (08:55→20:37)
[2021-03-22] MEDS: ENOXAPARIN 30 MG/0.3 ML (LOVENOX) SYR SC SCH (08:55)
[2021-03-22] MEDS: DOCUSATE SODIUM 100 MG (COLACE) CAP PO SCH ×2 (08:56→19:57)
[2021-03-22] MEDS: polyethylene glycoL POWDER 17 GM (MIRALAX) PACK PO SCH ×2 (08:56→19:57)
[2021-03-22] MEDS: NICOTINE 21 MG (NICODERM) PATCH TD SCH (08:56)
[2021-03-22] MEDS: SENNA W/DOCUSATE (SENOKOT S) TABLET PO SCH ×2 (08:56→19:57)
[2021-03-22] MEDS: DICLOFENAC 1% GEL 100 GM (VOLTAREN) TUBE TOP SCH ×3 (08:58→20:38)
[2021-03-22] MEDS: BETAMETHASONE/CLOTRIM CREAM (LOTRISONE) 45 GM TP SCH ×2 (08:59→20:38)
[2021-03-22] MEDS: NICOTINE PATCH REMOVAL TP SCH (08:59)
[2021-03-22] MEDS: MUPIROCIN 2% OINT 22 GM (BACTROBAN) TUBE TOP SCH ×2 (08:59→20:39)
--- NOTE | 2021-03-22 09:00 | Physical Therapy Daily Note ---
PT Daily Note-Current Subjective Pt laying Supine in bed upon arrival. Pt agrees to PT/OT co-treat for transfer practice. Pain Numeric Pain Scale: 4 Location: Left Location Body Site: Knee Pain Description: Ache Mental Status Patient Orientation: Person, Place, Time, Situation Attachments: Other-See Comments (Knee brace for L LE) Transfers SCALE: Activities may be completed with or without assistive devices. 3-Dekjqwgkuq-xamezgn completes the activity by him/herself with no assistance from a helper. 5-Set-up or Clean-up Assistance-helper sets up or cleans up; patient completes activity. [place] assists only prior to or following the activity. 4-Supervision or Touching Assistance-helper provides verbal cues and/or touching/steadying and/or contact guard assistance as patient completes activity. Assistance may be provided throughout the activity or intermittently. 3-Partial/Moderate Assistance-helper does LESS THAN HALF the effort. [place] lifts, holds or supports trunk or limbs, but provides less than half the effort. 2-Substantial/Maximal Assistance-helper does MORE THAN HALF the effort. [place] lifts or holds trunk or limbs and provides more than half the effort. 7-Jremhmzhe-qqcvaq does ALL the effort. Patient does none of the effort to complete the activity. Or, the assistance of 2 or more helpers is required for the patient to complete the activity. If activity was not attempted, code reason: 7-Patient Refused. 9-Not Applicable-not attempted and the patient did not perform the activity before the current illness, exacerbation or injury. 10-Not Attempted due to Environmental Limitations-(lack of equipment, weather restraints, etc.). 88-Not Attempted due to Medical Conditions or Safety Concerns. Lying to Sitting/Side of Bed(Q: 6 Sit to Stand (QC): 3 Chair/Qlq-wr-Itrjd Xfer(QC): 3 Toilet Transfer (QC): 3 Weight Bearing Right Lower Extremity: Right Weight Bearing/Tolerated Left Lower Extremity: Left Non Weight Bearing NWB LLE AND LUE; MAY WEIGHT-BEAR THROUGH ELBOW ON RUE. WBAT ON RLE. Wheelchair Training Does the Pt Use a Wheelchair?: Yes Wheel 50 ft with 2 turns (QC): 5 Wheel 150 ft (QC): 5 Type of Wheelchair: Manual Treatments Co-treat with 2 skilled clinicians d/t pt weakness, poor endurance, mobility, to coordinate UE/LE, for safety, and to decrease risk of falls. OT/PT Discussed home set up and having family come in for training if goal is to return home. Pt verbalizes that he is more willing to d/c to skilled facility for continued strengthening and for possible increase in weight bearing status. Pt reports that bathroom at home is not large enough for w/c. Pt performed multiple commode transfers with goal to improve safety, sequencing, set up and indep with task. After demonstration, pt able to set up w/c with min vc's. Reminders specifically on body positioning and scooting to Edge of surface prior to transfer. While sitting on commode, pt able to lift hip one at a time in order to slide pants below/above hips. Extra time needed for task. Pt able to demonstrate ability to reach posteriorly for emelyn care but may require assist for thoroughness. He propelled w/c around unit with SBA, min cues for obstacle avoidance. While in gym, he completed leg press, 15x3 with lengthy sitting rest break between each bout. Pt returned to bed with mod a, squat pivot transfer. PT Short Term Goals Short Term Goals Time Frame: Mar 25, 2021 Roll Left & Right: 6 Sit to lyin Lying to sitting on side of be: 6 Sit to stand: 4 Chair/myb-kw-smaky transfer: 4 Toilet transfer: 4 Wheel 50ft w/2 turns: 4 Wheel 150 feet: 4 PT Rack Loader Goals [facility] Goals PT [facility] Goals Time Frame: Apr 08, 2021 Roll Left & Right (QC): 6 Sit to Lying (QC): 6 Lying-Sitting on Side/Bed(QC): 6 Sit to Stand (QC): 6 Chair/Lep-ye-Hgvok Xfer(QC): 6 Toilet Transfer (QC): 6 Car Transfer (QC): 6 Does the Patient Walk: No and Walking Goal NOT indicated Walk 10 feet (QC): 88 Walk 50ft with 2 Turns (QC): 88 Walk 150 ft (QC): 88 Walking 10ft on Uneven Surface: 88 1 Step (curb) (QC): 88 4 Steps (QC): 88 12 Steps (QC): 88 Picking up an Object (QC): 88 Wheel 50 feet with 2 turns (QC: 6 Type: Manual Wheel 150 feet: 6 PT Plan Problem List Problem List: Activity Tolerance, Functional Strength, Transfer Treatment/Plan Treatment Plan: Continue Plan of Care Treatment Plan: Bed Mobility, Education, Functional Activity Krystin, Functional Strength, Group Therapy, Gait, Safety, Therapeutic Exercise, Transfers Treatment Duration: Apr 08, 2021 Frequency: 6 times per week Estimated Hrs Per Day: 1.5 hours per day Patient and/or Family Agrees t: Yes Safety Risks/Education Patient Education: Transfer Techniques, Correct Positioning, W/C Management, Safety Issues Teaching Recipient: Patient Teaching Methods: Discussion Response to Teaching: Verbalize Understanding Time/GCodes Time In: 800 Time Out: 900 Total Billed Treatment Time: 60 Total Billed Treatment 1, FA x2 (25m), [facility] (15m) & EX (20m) FRANDY CORNELIUS [employer] ASSOCIATE QUALITY CONTROL QC Mar 22, 2021 09:00
--- NOTE | 2021-03-22 09:01 | Occupational Ther Daily Note ---
OT Current Status-Daily Note Subjective Pt reports pain as 4/10 at start of session. Verbalizes that pain meds were given ~1-2 hours prior. Appearance Pt returned to supine in bed, all needs within reach. ADL-Treatment Therapy Code Descriptions/Definitions Functional [place] Measure: 0=Not Assessed/NA 4=Minimal Assistance 1=Total Assistance 5=Supervision or Setup 2=Maximal Assistance 6=Modified [place] 3=Moderate Assistance 7=Complete IndependenceSCALE: Activities may be completed with or without assistive devices. 9-Lbpolbdyvr-bnonzij completes the activity by him/herself with no assistance from a helper. 5-Set-up or Clean-up Assistance-helper sets up or cleans up; patient completes activity. [place] assists only prior to or following the activity. 4-Supervision or Touching Assistance-helper provides verbal cues and/or touching/steadying and/or contact guard assistance as patient completes activity. Assistance may be provided throughout the activity or intermittently. 3-Partial/Moderate Assistance-helper does LESS THAN HALF the effort. [place] lifts, holds or supports trunk or limbs, but provides less than half the effort. 2-Substantial/Maximal Assistance-helper does MORE THAN HALF the effort. [place] lifts or holds trunk or limbs and provides more than half the effort. 1-Wycrlcjfz-ivuybw does ALL the effort. Patient does none of the effort to complete the activity. Or, the assistance of 2 or more helpers is required for the patient to complete the activity. If activity was not attempted, code reason: 7-Patient Refused. 9-Not Applicable-not attempted and the patient did not perform the activity before the current illness, exacerbation or injury. 10-Not Attempted due to Environmental Limitations-(lack of equipment, weather restraints, etc.). 88-Not Attempted due to Medical Conditions or Safety Concerns. Upper Body Dressing (QC): 5 Toileting Hygiene (QC): 3 Toilet Transfer (QC): 3 Co-treat with 2 skilled clinicians d/t pt weakness, poor endurance, mobility, to coordinate UE/LE, for safety, and to decrease risk of falls. OT/PT Discussed home set up and having family come in for training if goal is to return home. Pt verbalizes that he is more willing to d/c to skilled facility for continued strengthening and for possible increase in weight bearing status. Pt reports that bathroom at home is not large enough for w/c. Pt performed multiple commode transfers with goal to improve safety, sequencing, set up and indep with task. After demonstration, pt able to set up w/c with min vc's. Reminders specifically on body positioning and scooting to Edge of surface prior to transfer. While sitting on commode, pt able to lift hip one at a time in order to slide pants below/above hips. Extra time needed for task. Pt able to demonstrate ability to reach posteriorly for emelyn care but may require assist for thoroughness. He propelled w/c around unit with SBA, min cues for obstacle avoidance. While in gym, he completed leg press, 15x3 with lengthy sitting rest break between each bout. Pt returned to bed with mod a, squat pivot transfer. Education OT Patient Education: Correct positioning, Disease process, Energy conservation, Exercise program, Modified ADL techniques, Progress toward Goal/Update tx plan, Purpose of tx/functional activities, Reviewed precautions, Safety issues, Transfer techniques, W/C management Teaching Recipient: Patient Teaching Methods: Demonstration, Discussion Response to Teaching: Verbalize Understanding, Return Demonstration, Reinforcement Needed OT Short Term Goals Short Term Goals Time Frame: Mar 26, 2021 Eatin Oral hygiene: 4 Toileting hygiene: 3 Shower/bathe self: 3 Upper body dressin Lower body dressin Putting on/taking off footwear: 3 OT Residential Goals Skilled Laborer Goals Time Frame: Apr 06, 2021 Eating (QC): 6 Oral Hygiene (QC): 5 Toileting Hygiene (QC): 4 Shower/Bathe Self (QC): 4 Upper Body Dressing (QC): 5 Lower Body Dressing (QC): 4 On/Off Footwear (QC): 4 1=Demonstrate adherence to instructed precautions during ADL tasks. 2=Patient will verbalize/demonstrate understanding of assistive devices/modifications for ADL. 3=Patient will improve strength/tolerance for activity to enable patient to perform ADL's. OT Education/Plan Problem List/Assessment Assessment: Decreased Activ Tolerance, Decreased Safety Aware, Decreased UE Strength, Dependent Transfers, Impaired Coordination, Impaired Funct Balance, Impaired I ADL's, Impaired Self-Care Skills, Restricted Funct UE ROM Discharge Recommendations Plan/Recommendations: Continue POC Treatment Plan/Plan of Care Treatment,Training & Education: Yes Patient would benefit from OT for education, treatment and training to promote independence in ADL's, mobility, safety and/or upper extremity function for ADL's. Plan of Care: ADL Retraining, Functional Mobility, Group Exercise/Act as Ind, Orthotic Fitting/Training, UE Funct Exercise/Act, W/C Management Training Treatment Duration: Apr 06, 2021 Frequency: At least 5 of 7 days/Wk (IRF) Estimated Hrs Per Day: 1.5 hours per day Agreement: Yes Rehab Potential: Fair Time/GCodes Start Time: 08:00 Stop Time: 09:00 Total Time Billed (hr/min): 60 Billed Treatment Time 1 visit, ADL x2 FA x2 Co-treat with PT for 60 min Rukhsana Anderson OT Mar 22, 2021 09:01
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
--- NOTE | 2021-03-22 12:53 | Progress Note ---
Subjective Date Seen by Provider: Mar 22, 2021 Time Seen by Provider: 12:30 Subjective/Events-last exam Patient doing well. Recently had follow up with trauma surgeon. Eneida to be removed from stump next week. Currently packing wound cavity with iodaform Culture confirmed enterococcus faecium and patient is appropriately treated with Linezolid. Stump site looks improved today. Erythema and induration improved, less boggy. Drainage more bloody. Patient states he is doing well with PT and stump hot top liner helper compliance. Patient does have a h/o smoking and we discussed this at length today. It is very important for him to remain off cigarettes upon discharge to heal the current wound and prevent further wounds to this fragile area. Review of Systems Pulmonary: No Dyspnea, No Cough, No Pleuritic Chest Pain, No Other Cardiovascular: No: Chest Pain, Palpitations, Orthopnea, Paroxysmal Noc. Dyspnea, Edema, Lt Headedness, Other Gastrointestinal: No: Nausea, Vomiting, Abdominal Pain, Diarrhea, Constipation, Melena, Hematochezia, Other Musculoskeletal: leg pain Neurological: Weakness Focused Exam Respiratory: No Respiratory Distress Skin: normal color, warm/dry, other (decreased erythema and induration of stump site. Copious drainage continues, more bloody.) Objective Exam Last Set of Vital Signs Vital Signs Date Time Temp Pulse Resp B/P (MAP) Pulse Ox O2 Delivery O2 Flow Rate FiO2 03/22/21 09:11 Room Air 03/22/21 08:28 36.8 95 20 95/68 (77) 100 Capillary Refill : General: Alert, Oriented X3, Cooperative, No Acute Distress HEENT: Atraumatic Extremities: No Clubbing, No Cyanosis Skin: Other (Superior stump wound: tracks at 12 for 6cm and at 7 tracks to inferior stump cavity. Incisional wound: undermining from 10-1 3 cm and tracks to superior wound. Depth of superior wound 1 cm.) Psych/Mental Status: Mental Status NL, Mood NL Results Lab Laboratory Tests 03/22/21 05:15: White Blood Count 4.1L, Red Blood Count 3.47L, Hemoglobin 10.2L, Hematocrit 33L, Mean Corpuscular Volume 95, Mean Corpuscular Hemoglobin 29, Mean Corpuscular Hemoglobin Concent 31L, Red Cell Distribution Width 15.9H, Platelet Count 297, Mean Platelet Volume 10.3, Immature Granulocyte % (Auto) 0, Neutrophils (%) (Auto) 43, Lymphocytes (%) (Auto) 43, Monocytes (%) (Auto) 10, Eosinophils (%) (Auto) 3, Basophils (%) (Auto) 1, Neutrophils # (Auto) 1.8, Lymphocytes # (Auto) 1.8, Monocytes # (Auto) 0.4, Eosinophils # (Auto) 0.1, Basophils # (Auto) 0.0, Immature Granulocyte # (Auto) 0.0, Sodium Level 136, Potassium Level 4.0, Chloride Level 104, Carbon Dioxide Level 20L, Anion Gap 12, Blood Urea Nitrogen 8, Creatinine 0.67, Estimat Glomerular Filtration Rate 124, BUN/Creatinine Ratio 12, Glucose Level 86, Calcium Level 9.2, Corrected Calcium 9.9, Total Bilirubin 0.4, Aspartate Amino Transf (AST/SGOT) 23, Alanine Aminotransferase (ALT/SGPT) 32, Alkaline Phosphatase 177H, Total Protein 5.8L, Albumin 3.1L Microbiology 03/12/21 Gram Stain - Final, Complete 03/12/21 Anaerobic Culture - Final, Complete No anaerobes isolated 03/12/21 Wound Culture - Final, Complete Enterococcus faecium Staphylococcus epidermidis Assessment/Plan Assessment/Plan Assess & Plan/Chief Complaint A: 1. Post AKA with infected surgical wound 2. E. Faecium abscess P: 1. Continue linezolid 2. Continue iodaform packing to stump wound. This seems to be improving 3. Smoking cessation 4. Keep surgical follow up as recommended 5. If necessary, follow up with wound care as outpatient. May consider alternative treatments in future once eneida out if necessary. DELIA WATTS MD Mar 22, 2021 12:53
--- NOTE | 2021-03-22 14:50 | Therapy Group Daily Note ---
Therapy Daily Group Note Patient Education Topic Other List Below (nutrition, exercises) Exercises LE Seated Exercise, UE Exercise Session Ratio (pt:therapist): 4:1 Goal of Session: Education on ARU Expectations, UE/LE Strengthing Goal Met for this Session: Yes Pt Benefit of Group: Contributions to Others, F/U Use of Strategies @Home, Increased Functional Safety, Increased Functional Strength, Improved Cognition, Recognition of Peers, Socialization Other/Notes Pt propelled w/c to [facility] area for OT/PT group. Group consisted of introductions (name, place living, favorite fall therapy), socialization, seated UE/LE exercises, and educational topics involving nutrition, exercise. Pt introduced self appropriately, actively listened to peers. Pt able to complete B UE/LE seated exercises except L lower leg exercises due to BKA, tolerated well. Pt acknowledged understanding by verbalizing understanding and giving personal stories. Pt participated in a multiple choice question/answer session about educational topics. After session, pt sitting in recliner. Call light/phone in reach. All needs met in room. Start Time: 13:00 Stop Time: 14:00 Total Billed Treatment Time: 60 Total Billed Treatment 1-GRP DIMITRI LONDONO Mar 22, 2021 14:50
[2021-03-22 20:00] VITALS: BP 108/61
[2021-03-22] MEDS: MELATONIN 10 MG TABLET PO SCH (20:37)
[2021-03-22] MEDS: traZODone 50 MG (DESYREL) TAB PO SCH (20:37)
[2021-03-22] MEDS: ZOLPIDEM 5 MG (AMBIEN) TAB PO PRN (20:37)
[2021-03-23] MEDS: LINEZOLID (ZYVOX) 600 MG TAB PO SCH ×2 (07:45→20:22)
[2021-03-23] MEDS: NICOTINE 21 MG (NICODERM) PATCH TD SCH (07:45)
[2021-03-23] MEDS: ENOXAPARIN 30 MG/0.3 ML (LOVENOX) SYR SC SCH (07:46)
[2021-03-23] MEDS: DICLOFENAC 1% GEL 100 GM (VOLTAREN) TUBE TOP SCH ×3 (07:46→20:23)
[2021-03-23] MEDS: BETAMETHASONE/CLOTRIM CREAM (LOTRISONE) 45 GM TP SCH ×2 (07:46→20:23)
[2021-03-23] MEDS: NICOTINE PATCH REMOVAL TP SCH (07:47)
[2021-03-23] MEDS: MUPIROCIN 2% OINT 22 GM (BACTROBAN) TUBE TOP SCH ×2 (07:47→20:23)
[2021-03-23 08:00] VITALS: BP 99/61
--- NOTE | 2021-03-23 09:05 | Physical Therapy Daily Note ---
PT Daily Note-Current Subjective Pt in bed upon arrival and agrees to co-treat. Pt states pain 4/10 in L LE. Co- treat with 2 skilled clinicians d/t pt poor mobility, endurance, weakness, transfers, and decrease risk of falls. Pain Numeric Pain Scale: 4 Location: Left Mental Status Patient Orientation: Person, Place, Time, Situation Transfers SCALE: Activities may be completed with or without assistive devices. 0-Yoflrrphyw-ctlvnpa completes the activity by him/herself with no assistance from a helper. 5-Set-up or Clean-up Assistance-helper sets up or cleans up; patient completes activity. [place] assists only prior to or following the activity. 4-Supervision or Touching Assistance-helper provides verbal cues and/or touching/steadying and/or contact guard assistance as patient completes activity. Assistance may be provided throughout the activity or intermittently. 3-Partial/Moderate Assistance-helper does LESS THAN HALF the effort. [place] lifts, holds or supports trunk or limbs, but provides less than half the effort. 2-Substantial/Maximal Assistance-helper does MORE THAN HALF the effort. [place] lifts or holds trunk or limbs and provides more than half the effort. 0-Rnzwyxemc-zdephx does ALL the effort. Patient does none of the effort to complete the activity. Or, the assistance of 2 or more helpers is required for the patient to complete the activity. If activity was not attempted, code reason: 7-Patient Refused. 9-Not Applicable-not attempted and the patient did not perform the activity before the current illness, exacerbation or injury. 10-Not Attempted due to Environmental Limitations-(lack of equipment, weather restraints, etc.). 88-Not Attempted due to Medical Conditions or Safety Concerns. Roll Left & Right (QC): 6 Sit to Lying (QC): 6 Lying to Sitting/Side of Bed(Q: 6 Sit to Stand (QC): 3 Chair/Jlk-xl-Zddtj Xfer(QC): 3 Weight Bearing Right Lower Extremity: Right Weight Bearing/Tolerated Left Lower Extremity: Left Non Weight Bearing NWB LLE AND LUE; MAY WEIGHT-BEAR THROUGH ELBOW ON RUE. WBAT ON RLE. Exercises Supine Ex: Short Arc Quads SAQ 10 x3, AAROM to extend L knee to 0 Treatments OT focused on dressing, ADLs, and UE strengthening/stretching. PT focused on transfers, functional mobility, and LE strengthening/stretching. Pt changes clothes in bed (see OT note). Pt instructed on donning knee brace, able to do so w/ Angel for correct positioning and extended time. Pt sits EOB and is able to set self up for transfer, SPT to WC ModA but pt able to A with turning to WC. Pt propels WC to BR and completes ADLs, then propels WC through obstacle course on ARU, VC given for safety awareness. Pt propels WC 300' and returns to room. SPT back to bed ModA, pt A with standing more second transfer. In supine, pt completes ex. PT exits tx and OT remains w/ pt with all needs met. Assessment Current Status: Fair Progress Pt limited by WB precautions, weakness, and poor ROM PT Short Term Goals Short Term Goals Time Frame: Mar 25, 2021 Roll Left & Right: 6 Sit to lyin Lying to sitting on side of be: 6 Sit to stand: 4 Chair/vgn-ka-cbfba transfer: 4 Toilet transfer: 4 Wheel 50ft w/2 turns: 4 Wheel 150 feet: 4 PT Prison Goals Prison Goals PT Prison Goals Time Frame: Apr 08, 2021 Roll Left & Right (QC): 6 Sit to Lying (QC): 6 Lying-Sitting on Side/Bed(QC): 6 Sit to Stand (QC): 6 Chair/Vxe-eh-Lymmu Xfer(QC): 6 Toilet Transfer (QC): 6 Car Transfer (QC): 6 Does the Patient Walk: No and Walking Goal NOT indicated Walk 10 feet (QC): 88 Walk 50ft with 2 Turns (QC): 88 Walk 150 ft (QC): 88 Walking 10ft on Uneven Surface: 88 1 Step (curb) (QC): 88 4 Steps (QC): 88 12 Steps (QC): 88 Picking up an Object (QC): 88 Wheel 50 feet with 2 turns (QC: 6 Type: Manual Wheel 150 feet: 6 PT Plan Treatment/Plan Treatment Plan: Continue Plan of Care Treatment Plan: Bed Mobility, Education, Functional Activity Krystin, Functional Strength, Group Therapy, Gait, Safety, Therapeutic Exercise, Transfers Treatment Duration: Apr 08, 2021 Frequency: 6 times per week Estimated Hrs Per Day: 1.5 hours per day Patient and/or Family Agrees t: Yes Time/GCodes Time In: 800 Time Out: 900 Total Billed Treatment Time: 60 Total Billed Treatment 1, FA x2, WC, EX OLIVIA,NORI [facility] Mar 23, 2021 09:04
--- NOTE | 2021-03-23 09:27 | Occupational Ther Daily Note ---
OT Current Status-Daily Note Subjective Pt in bed upon arrival and agrees to co-treat. States pain as 4/10 in L LE and reports pain meds given within hour. Co-treat with 2 skilled clinicians d/t pt poor mobility, endurance, weakness, transfers, and decrease risk of falls. Appearance Pt left supine in bed, all needs within reach. ADL-Treatment Therapy Code Descriptions/Definitions Functional [place] Measure: 0=Not Assessed/NA 4=Minimal Assistance 1=Total Assistance 5=Supervision or Setup 2=Maximal Assistance 6=Modified [place] 3=Moderate Assistance 7=Complete IndependenceSCALE: Activities may be completed with or without assistive devices. 4-Flyiehfnlu-jfsvokf completes the activity by him/herself with no assistance from a helper. 5-Set-up or Clean-up Assistance-helper sets up or cleans up; patient completes activity. [place] assists only prior to or following the activity. 4-Supervision or Touching Assistance-helper provides verbal cues and/or touching/steadying and/or contact guard assistance as patient completes activity. Assistance may be provided throughout the activity or intermittently. 3-Partial/Moderate Assistance-helper does LESS THAN HALF the effort. [place] lifts, holds or supports trunk or limbs, but provides less than half the effort. 2-Substantial/Maximal Assistance-helper does MORE THAN HALF the effort. [place] l ifts or holds trunk or limbs and provides more than half the effort. 3-Phquyrkis-rxzqtn does ALL the effort. Patient does none of the effort to complete the activity. Or, the assistance of 2 or more helpers is required for the patient to complete the activity. If activity was not attempted, code reason: 7-Patient Refused. 9-Not Applicable-not attempted and the patient did not perform the activity before the current illness, exacerbation or injury. 10-Not Attempted due to Environmental Limitations-(lack of equipment, weather restraints, etc.). 88-Not Attempted due to Medical Conditions or Safety Concerns. Oral Hygiene (QC): 5 Bathing Location: Perineal Area Upper Body Dressing (QC): 5 Lower Body Dressing (QC): 5 Other Treatment OT focused on dressing, ADLs, and UE strengthening/stretching. PT focused on transfers, functional mobility, and LE strengthening/stretching. Dressing tasks performed at bed level. Great improvement in ability to perform without cues, extra time and set up only. Clothing management performed while rolling R/L. Pt cleaned emelyn area with wet wipes prior to donning new pants. He did not require use of pig casting machine operator to thread R foot this date. Pt instructed on donning/doffing knee brace. Post cues, he was able to perform with CGA for correct positioning and e xtended time to manage Velcro straps secondary to limited R hand use. He transferred to w/c with mod a, continues to need min reminders on proper set up prior to transfer. Grooming tasks performed at w/c level. Improved speed exhibited with bilateral tasks; pt utilizes RUE more as stabilizer. He propelled w/c through obstacles course set up by PT/OT. Min vc's for safety awareness and obstacle avoidance. Pt uses RLE only for propulsion. Pt then completed UE/RLE exercises. Slight improvement noted in R wrist ROM, flexion>extension; ~10-15 degrees extension. Education on scar tissue, treatment,and healing. Wrist splint replaced by OT following exercises. Pt able to perform AROM L elbow within ordered ROM restrictions (30-120 degrees). 2 sets, 12 reps. Education OT Patient Education: Correct positioning, Disease process, Exercise program, Modified ADL techniques, Progress toward Goal/Update tx plan, Purpose of tx/functional activities, Reviewed precautions, Rehab process, Safety issues, Transfer techniques, W/C management Teaching Recipient: Patient Teaching Methods: Demonstration, Discussion Response to Teaching: Verbalize Understanding, Return Demonstration OT Short Term Goals Short Term Goals Time Frame: Mar 26, 2021 Eatin Oral hygiene: 4 Toileting hygiene: 3 Shower/bathe self: 3 Upper body dressin Lower body dressin Putting on/taking off footwear: 3 OT Rib Trim Separator Goals Rib Trim Separator Goals Time Frame: Apr 06, 2021 Eating (QC): 6 Oral Hygiene (QC): 5 Toileting Hygiene (QC): 4 Shower/Bathe Self (QC): 4 Upper Body Dressing (QC): 5 Lower Body Dressing (QC): 4 On/Off Footwear (QC): 4 1=Demonstrate adherence to instructed precautions during ADL tasks. 2=Patient will verbalize/demonstrate understanding of assistive devices/modifications for ADL. 3=Patient will improve strength/tolerance for activity to enable patient to perform ADL's. OT Education/Plan Problem List/Assessment Assessment: Decreased Activ Tolerance, Decreased Safety Aware, Decreased UE Strength, Dependent Transfers, Impaired Coordination, Impaired Funct Balance, Impaired I ADL's, Impaired Self-Care Skills, Restricted Funct UE ROM Discharge Recommendations Plan/Recommendations: Continue POC Treatment Plan/Plan of Care Treatment,Training & Education: Yes Patient would benefit from OT for education, treatment and training to promote independence in ADL's, mobility, safety and/or upper extremity function for ADL's. Plan of Care: ADL Retraining, Functional Mobility, Group Exercise/Act as Ind, Orthotic Fitting/Training, UE Funct Exercise/Act, W/C Management Training Treatment Duration: Apr 06, 2021 Frequency: At least 5 of 7 days/Wk (IRF) Estimated Hrs Per Day: 1.5 hours per day Agreement: Yes Rehab Potential: Fair Time/GCodes Start Time: 08:00 Stop Time: 09:30 Total Time Billed (hr/min): 90 Billed Treatment Time 1 visit, ADL x2 (30 min) FA x2 (25 min) EX x2 (35 min) co-treat for 60 min Rukhsana Anderson OT Mar 23, 2021 09:27
[2021-03-23] MEDS: polyethylene glycoL POWDER 17 GM (MIRALAX) PACK PO SCH ×2 (09:48→21:17)
[2021-03-23] MEDS: SENNA W/DOCUSATE (SENOKOT S) TABLET PO SCH ×2 (09:48→21:18)
[2021-03-23] MEDS: DOCUSATE SODIUM 100 MG (COLACE) CAP PO SCH ×2 (09:48→21:17)
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
--- NOTE | 2021-03-23 14:00 | Physical Therapy Daily Note ---
PT Daily Note-Current Subjective Pt in bed upon arrival and agrees to tx. Pt states pain at 5/10, asks RN for pain medication. Pain Numeric Pain Scale: 5-Moderate Pain Location: Left Mental Status Patient Orientation: Person, Place, Situation Transfers SCALE: Activities may be completed with or without assistive devices. 1-Sfnkfuidlv-vuqkars completes the activity by him/herself with no assistance from a helper. 5-Set-up or Clean-up Assistance-helper sets up or cleans up; patient completes activity. [place] assists only prior to or following the activity. 4-Supervision or Touching Assistance-helper provides verbal cues and/or touching/steadying and/or contact guard assistance as patient completes activity. Assistance may be provided throughout the activity or intermittently. 3-Partial/Moderate Assistance-helper does LESS THAN HALF the effort. [place] lifts, holds or supports trunk or limbs, but provides less than half the effort. 2-Substantial/Maximal Assistance-helper does MORE THAN HALF the effort. [place] lifts or holds trunk or limbs and provides more than half the effort. 4-Cftxshlng-ekheeo does ALL the effort. Patient does none of the effort to complete the activity. Or, the assistance of 2 or more helpers is required for the patient to complete the activity. If activity was not attempted, code reason: 7-Patient Refused. 9-Not Applicable-not attempted and the patient did not perform the activity before the current illness, exacerbation or injury. 10-Not Attempted due to Environmental Limitations-(lack of equipment, weather restraints, etc.). 88-Not Attempted due to Medical Conditions or Safety Concerns. Roll Left & Right (QC): 5 Sit to Lying (QC): 5 Lying to Sitting/Side of Bed(Q: 5 Sit to Stand (QC): 3 Chair/Aoe-sw-Sazep Xfer(QC): 3 Weight Bearing Right Lower Extremity: Right Weight Bearing/Tolerated Left Lower Extremity: Left Non Weight Bearing NWB LLE AND LUE; MAY WEIGHT-BEAR THROUGH ELBOW ON RUE. WBAT ON RLE. Wheelchair Training Does the Pt Use a Wheelchair?: Yes Wheel 50 ft with 2 turns (QC): 5 Wheel 150 ft (QC): 5 Type of Wheelchair: Manual Treatments Pt completes bed mobility, then attempts to don knee brace SBA. Pt requires Angel for positioning of brace. Pt supine to sit and scoots to EOB to set self up for SPT to WC. Pt transfers ModA and performs WC mobility, going backwards for 150'. Pt attempts to propel WC going forward w/ R LE, pt able to with slow propulsion and Angel to keep WC from wheeling back. Pt returns to room and SPT back to bed ModA. Pt remains sitting EOB w/ tray in front of him, all needs met and call light in hand. Assessment Current Status: Poor Progress No progress in mobility, pt limited by WB precautions. PT Short Term Goals Short Term Goals Time Frame: Mar 25, 2021 Roll Left & Right: 6 Sit to lyin Lying to sitting on side of be: 6 Sit to stand: 4 Chair/xyj-ic-uuskf transfer: 4 Toilet transfer: 4 Wheel 50ft w/2 turns: 4 Wheel 150 feet: 4 PT Mcc Goals Mcc Goals PT Mcc Goals Time Frame: Apr 08, 2021 Roll Left & Right (QC): 6 Sit to Lying (QC): 6 Lying-Sitting on Side/Bed(QC): 6 Sit to Stand (QC): 6 Chair/Fck-ck-Dutjp Xfer(QC): 6 Toilet Transfer (QC): 6 Car Transfer (QC): 6 Does the Patient Walk: No and Walking Goal NOT indicated Walk 10 feet (QC): 88 Walk 50ft with 2 Turns (QC): 88 Walk 150 ft (QC): 88 Walking 10ft on Uneven Surface: 88 1 Step (curb) (QC): 88 4 Steps (QC): 88 12 Steps (QC): 88 Picking up an Object (QC): 88 Wheel 50 feet with 2 turns (QC: 6 Type: Manual Wheel 150 feet: 6 PT Plan Treatment/Plan Treatment Plan: Continue Plan of Care Treatment Plan: Bed Mobility, Education, Functional Activity Krystin, Functional Strength, Group Therapy, Gait, Safety, Therapeutic Exercise, Transfers Treatment Duration: Apr 08, 2021 Frequency: 6 times per week Estimated Hrs Per Day: 1.5 hours per day Patient and/or Family Agrees t: Yes Time/GCodes Time In: 1330 Time Out: 1400 Total Billed Treatment Time: 30 Total Billed Treatment Sulaiman, ALVA CASTRO SYDNEY PTA Mar 23, 2021 14:00
[2021-03-23 20:00] VITALS: BP 146/68
[2021-03-23] MEDS: traZODone 50 MG (DESYREL) TAB PO SCH (20:22)
[2021-03-23] MEDS: MELATONIN 10 MG TABLET PO SCH (20:22)
[2021-03-24] MEDS: ZOLPIDEM 5 MG (AMBIEN) TAB PO PRN (00:37)
[2021-03-24 08:08] VITALS: BP 100/63
[2021-03-24] MEDS: NICOTINE 21 MG (NICODERM) PATCH TD SCH (08:13)
[2021-03-24] MEDS: VITAMIN D3 125 MCG (5,000 UNITS) CAPSULE PO SCH (08:13)
[2021-03-24] MEDS: LINEZOLID (ZYVOX) 600 MG TAB PO SCH ×2 (08:13→21:44)
[2021-03-24] MEDS: ENOXAPARIN 30 MG/0.3 ML (LOVENOX) SYR SC SCH (08:14)
[2021-03-24] MEDS: DICLOFENAC 1% GEL 100 GM (VOLTAREN) TUBE TOP SCH ×3 (08:14→21:46)
[2021-03-24] MEDS: DOCUSATE SODIUM 100 MG (COLACE) CAP PO SCH ×2 (08:22→22:33)
[2021-03-24] MEDS: polyethylene glycoL POWDER 17 GM (MIRALAX) PACK PO SCH ×2 (08:23→22:33)
[2021-03-24] MEDS: SENNA W/DOCUSATE (SENOKOT S) TABLET PO SCH ×2 (08:23→22:33)
[2021-03-24] MEDS: NICOTINE PATCH REMOVAL TP SCH (08:23)
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
--- NOTE | 2021-03-24 10:28 | Physical Therapy Daily Note ---
PT Daily Note-Current Subjective Patient in bed pre tx, agrees to PT, has 4/10 pain in left leg. Appearance Patient in bed post tx with nurse call, phone, tray, all needs met. Mental Status Patient Orientation: Person, Place, Situation left leg brace, right arm splint Transfers SCALE: Activities may be completed with or without assistive devices. 0-Hlckzjdrch-hiwrhjj completes the activity by him/herself with no assistance from a helper. 5-Set-up or Clean-up Assistance-helper sets up or cleans up; patient completes activity. [place] assists only prior to or following the activity. 4-Supervision or Touching Assistance-helper provides verbal cues and/or touching/steadying and/or contact guard assistance as patient completes activity. Assistance may be provided throughout the activity or intermittently. 3-Partial/Moderate Assistance-helper does LESS THAN HALF the effort. [place] lifts, holds or supports trunk or limbs, but provides less than half the effort. 2-Substantial/Maximal Assistance-helper does MORE THAN HALF the effort. [place] lifts or holds trunk or limbs and provides more than half the effort. 3-Jhvrtcuxz-vnmxcj does ALL the effort. Patient does none of the effort to complete the activity. Or, the assistance of 2 or more helpers is required for the patient to complete the activity. If activity was not attempted, code reason: 7-Patient Refused. 9-Not Applicable-not attempted and the patient did not perform the activity before the current illness, exacerbation or injury. 10-Not Attempted due to Environmental Limitations-(lack of equipment, weather restraints, etc.). 88-Not Attempted due to Medical Conditions or Safety Concerns. Roll Left & Right (QC): 6 Sit to Lying (QC): 6 Lying to Sitting/Side of Bed(Q: 6 Sit to Stand (QC): 3 Chair/Mbw-fg-Wtwzn Xfer(QC): 3 mod assist for sit to stand and transfer to , patient performed 4 stand pivot transfers total Weight Bearing Right Lower Extremity: Right Weight Bearing/Tolerated Left Lower Extremity: Left Non Weight Bearing NWB LLE AND LUE; MAY WEIGHT-BEAR THROUGH ELBOW ON RUE. WBAT ON RLE. Wheelchair Training Does the Pt Use a Wheelchair?: Yes Wheel 50 ft with 2 turns (QC): 4 Wheel 150 ft (QC): 4 Type of Wheelchair: Manual SBA, patient propels backward using his right leg Exercises NuStep Minutes: 15 NuStep Workload: 1 (no resistance due to NWB on both arms but he can work on ankle ROM) Treatments bed mobility and transfers, WC mobility, stretching Assessment Current Status: Fair Progress improved sit to stand and transfers PT Short Term Goals Short Term Goals Time Frame: Mar 25, 2021 Roll Left & Right: 6 Sit to lyin Lying to sitting on side of be: 6 Sit to stand: 4 Chair/iua-mo-wvjxp transfer: 4 Toilet transfer: 4 Wheel 50ft w/2 turns: 4 Wheel 150 feet: 4 PT Halfway Goals Shield Runner Goals PT Shield Runner Goals Time Frame: Apr 08, 2021 Roll Left & Right (QC): 6 Sit to Lying (QC): 6 Lying-Sitting on Side/Bed(QC): 6 Sit to Stand (QC): 6 Chair/Opw-am-Tslsb Xfer(QC): 6 Toilet Transfer (QC): 6 Car Transfer (QC): 6 Does the Patient Walk: No and Walking Goal NOT indicated Walk 10 feet (QC): 88 Walk 50ft with 2 Turns (QC): 88 Walk 150 ft (QC): 88 Walking 10ft on Uneven Surface: 88 1 Step (curb) (QC): 88 4 Steps (QC): 88 12 Steps (QC): 88 Picking up an Object (QC): 88 Wheel 50 feet with 2 turns (QC: 6 Type: Manual Wheel 150 feet: 6 PT Plan Problem List Problem List: Activity Tolerance, Functional Strength, Safety, Balance, Gait, Transfer, Bed Mobility, ROM Treatment/Plan Treatment Plan: Continue Plan of Care Treatment Plan: Bed Mobility, Education, Functional Activity Krystin, Functional Strength, Group Therapy, Gait, Safety, Therapeutic Exercise, Transfers Treatment Duration: Apr 08, 2021 Frequency: 6 times per week Estimated Hrs Per Day: 1.5 hours per day Patient and/or Family Agrees t: Yes Safety Risks/Education Patient Education: Transfer Techniques, Reviewed Precautions, Correct Positioning, W/C Management, Safety Issues Teaching Recipient: Patient Teaching Methods: Demonstration, Discussion Response to Teaching: Reinforcement Needed Time/GCodes Time In: 0935 Time Out: 1000 Total Billed Treatment Time: 25 Total Billed Treatment 1 visit EX 10' FA 15' STONEY HOOPER PT Mar 24, 2021 10:28
[2021-03-24] MEDS: MUPIROCIN 2% OINT 22 GM (BACTROBAN) TUBE TOP SCH ×2 (15:00→21:48)
[2021-03-24] MEDS: BETAMETHASONE/CLOTRIM CREAM (LOTRISONE) 45 GM TP SCH ×2 (15:15→21:46)
[2021-03-24] MEDS: ACETAMINOPHEN 325 MG TABLET PO PRN (19:44)
[2021-03-24 20:00] VITALS: BP 110/69
[2021-03-24] MEDS: ALPRAZolam 0.25 MG (XANAX) TAB PO PRN (21:44)
[2021-03-24] MEDS: MELATONIN 10 MG TABLET PO SCH (21:44)
[2021-03-24] MEDS: traZODone 50 MG (DESYREL) TAB PO SCH (21:44)
[2021-03-25] MEDS: ZOLPIDEM 5 MG (AMBIEN) TAB PO PRN ×2 (00:33→20:43)
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
[2021-03-25 07:30] VITALS: BP 104/55
[2021-03-25] MEDS: LINEZOLID (ZYVOX) 600 MG TAB PO SCH ×2 (10:11→20:43)
[2021-03-25] MEDS: NICOTINE 21 MG (NICODERM) PATCH TD SCH (10:11)
[2021-03-25] MEDS: VITAMIN D3 125 MCG (5,000 UNITS) CAPSULE PO SCH (10:11)
[2021-03-25] MEDS: polyethylene glycoL POWDER 17 GM (MIRALAX) PACK PO SCH ×2 (10:26→22:00)
[2021-03-25] MEDS: DOCUSATE SODIUM 100 MG (COLACE) CAP PO SCH ×2 (10:26→20:43)
[2021-03-25] MEDS: NICOTINE PATCH REMOVAL TP SCH (10:27)
[2021-03-25] MEDS: SENNA W/DOCUSATE (SENOKOT S) TABLET PO SCH ×2 (10:27→20:43)
[2021-03-25] MEDS: DICLOFENAC 1% GEL 100 GM (VOLTAREN) TUBE TOP SCH ×3 (10:28→20:45)
[2021-03-25] MEDS: BETAMETHASONE/CLOTRIM CREAM (LOTRISONE) 45 GM TP SCH ×2 (10:30→20:45)
[2021-03-25] MEDS: MUPIROCIN 2% OINT 22 GM (BACTROBAN) TUBE TOP SCH ×2 (10:31→20:46)
[2021-03-25 19:41] VITALS: BP 104/72
[2021-03-25] MEDS: ALPRAZolam 0.25 MG (XANAX) TAB PO PRN (20:42)
[2021-03-25] MEDS: MELATONIN 10 MG TABLET PO SCH (20:43)
[2021-03-25] MEDS: traZODone 50 MG (DESYREL) TAB PO SCH (20:43)
[2021-03-26 06:03] LABS: BASOPHILS % (AUTO) 1 % (0-10); EOSINOPHILS # (AUTO) 0.1 10^3/uL (0.0-0.3); EOSINOPHILS % (AUTO) 3 % (0-10); HEMATOCRIT 35 % (40-54); HEMOGLOBIN 11.2 g/dL (13.3-17.7); LYMPHOCYTES # (AUTO) 1.7 10^3/uL (1.0-4.0); LYMPHOCYTES % (AUTO) 42 % (12-44); MEAN CORPUSCULAR HEMOGLOBIN 30 pg (25-34); MEAN CORPUSCULAR HGB CONC 32 g/dL (32-36); MEAN CORPUSCULAR VOLUME 93 fL (80-99); MEAN PLATELET VOLUME 9.7 fL (9.0-12.2); MONOCYTES # (AUTO) 0.4 10^3/uL (0.0-1.0); MONOCYTES % (AUTO) 9 % (0-12); NEUTROPHILS # (AUTO) 1.8 10^3/uL (1.8-7.8); NEUTROPHILS % (AUTO) 45 % (42-75); PLATELET COUNT 241 10^3/uL (130-400)
[2021-03-26 06:14] LABS: ALBUMIN 3.4 GM/DL (3.2-4.5)
[2021-03-26 06:15] LABS: POTASSIUM 4.3 MMOL/L (3.6-5.0)
[2021-03-26 06:16] LABS: CALCIUM 9.5 MG/DL (8.5-10.1)
[2021-03-26 06:17] LABS: TOTAL PROTEIN 6.3 GM/DL (6.4-8.2)
[2021-03-26 06:19] LABS: BILIRUBIN,TOTAL 0.4 MG/DL (0.1-1.0)
[2021-03-26 06:21] LABS: CREATININE SERUM 0.67 MG/DL (0.60-1.30)
[2021-03-26 07:25] VITALS: BP 98/59
[2021-03-26] MEDS: NICOTINE 21 MG (NICODERM) PATCH TD SCH (08:06)
[2021-03-26] MEDS: LINEZOLID (ZYVOX) 600 MG TAB PO SCH ×2 (08:06→20:19)
[2021-03-26] MEDS: VITAMIN D3 125 MCG (5,000 UNITS) CAPSULE PO SCH (08:06)
--- NOTE | 2021-03-26 08:59 | Physical Therapy Daily Note ---
PT Daily Note-Current Subjective Patient in bed pre tx, agrees to PT, has 4/10 pain, will be co-treating with OT due to poor patient mobility, strength, endurance, complicated weight bearing status, coordinate UE and LE during activity, safety and reduce risk of falls. Appearance Patient in WC post tx to continue with OT for a bit. Mental Status Patient Orientation: Normal For Age leg and arm brace Transfers SCALE: Activities may be completed with or without assistive devices. 3-Onufazsxsq-qagizhs completes the activity by him/herself with no assistance from a helper. 5-Set-up or Clean-up Assistance-helper sets up or cleans up; patient completes activity. [place] assists only prior to or following the activity. 4-Supervision or Touching Assistance-helper provides verbal cues and/or touching/steadying and/or contact guard assistance as patient completes activity. Assistance may be provided throughout the activity or intermittently. 3-Partial/Moderate Assistance-helper does LESS THAN HALF the effort. [place] lifts, holds or supports trunk or limbs, but provides less than half the effort. 2-Substantial/Maximal Assistance-helper does MORE THAN HALF the effort. [place] lifts or holds trunk or limbs and provides more than half the effort. 2-Upmoyksyy-kselrm does ALL the effort. Patient does none of the effort to complete the activity. Or, the assistance of 2 or more helpers is required for the patient to complete the activity. If activity was not attempted, code reason: 7-Patient Refused. 9-Not Applicable-not attempted and the patient did not perform the activity before the current illness, exacerbation or injury. 10-Not Attempted due to Environmental Limitations-(lack of equipment, weather restraints, etc.). 88-Not Attempted due to Medical Conditions or Safety Concerns. Roll Left & Right (QC): 6 Lying to Sitting/Side of Bed(Q: 6 Sit to Stand (QC): 3 Chair/Kay-ra-Mlucn Xfer(QC): 3 Patient is transferred to and taken to shower. He mostly undresses and is transferred to shower with mod assist, undressing completely on the way, he showers, dries, dresses part way and is transferred back to , stands (mod assist) and gets pants pulled up. Patient propels to the therapy gym and stands x3 for about 30 sec each time in the parallel bars. 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 Weight Bearing Right Lower Extremity: Right Weight Bearing/Tolerated Left Lower Extremity: Left Non Weight Bearing NWB LLE AND LUE; MAY WEIGHT-BEAR THROUGH ELBOW ON RUE. WBAT ON RLE. Treatments PT performed bed mobility and transfers, standing and positioning during bathing and dressing, standing, OT performed bathing and dressing and UE positioning and safety during activity Assessment Current Status: Fair Progress improving plantarflexion contracture PT Short Term Goals Short Term Goals Time Frame: Mar 25, 2021 Roll Left & Right: 6 Sit to lyin Lying to sitting on side of be: 6 Sit to stand: 4 Chair/fmi-gt-zvyzu transfer: 4 Toilet transfer: 4 Wheel 50ft w/2 turns: 4 Wheel 150 feet: 4 PT Fdc Goals Fdc Goals PT Marketing Compliance Manager Goals Time Frame: Apr 08, 2021 Roll Left & Right (QC): 6 Sit to Lying (QC): 6 Lying-Sitting on Side/Bed(QC): 6 Sit to Stand (QC): 6 Chair/Qvi-lz-Szxyw Xfer(QC): 6 Toilet Transfer (QC): 6 Car Transfer (QC): 6 Does the Patient Walk: No and Walking Goal NOT indicated Walk 10 feet (QC): 88 Walk 50ft with 2 Turns (QC): 88 Walk 150 ft (QC): 88 Walking 10ft on Uneven Surface: 88 1 Step (curb) (QC): 88 4 Steps (QC): 88 12 Steps (QC): 88 Picking up an Object (QC): 88 Wheel 50 feet with 2 turns (QC: 6 Type: Manual Wheel 150 feet: 6 PT Plan Problem List Problem List: Activity Tolerance, Functional Strength, Safety, Balance, Gait, Transfer, Bed Mobility, ROM Treatment/Plan Treatment Plan: Continue Plan of Care Treatment Plan: Bed Mobility, Education, Functional Activity Krystin, Functional Strength, Group Therapy, Gait, Safety, Therapeutic Exercise, Transfers Treatment Duration: Apr 08, 2021 Frequency: 6 times per week Estimated Hrs Per Day: 1.5 hours per day Patient and/or Family Agrees t: Yes Safety Risks/Education Patient Education: Transfer Techniques, Reviewed Precautions, Correct Positioning, W/C Management, Safety Issues Teaching Recipient: Patient Teaching Methods: Demonstration, Discussion Response to Teaching: Reinforcement Needed Time/GCodes Time In: 0800 Time Out: 0900 Total Billed Treatment Time: 60 Total Billed Treatment 1 visit FA 60' co-treated for 60' STONEY HOOPER PT Mar 26, 2021 08:59
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
[2021-03-26] MEDS: DOCUSATE SODIUM 100 MG (COLACE) CAP PO SCH ×2 (09:16→20:19)
[2021-03-26] MEDS: DICLOFENAC 1% GEL 100 GM (VOLTAREN) TUBE TOP SCH ×3 (09:17→20:22)
[2021-03-26] MEDS: SENNA W/DOCUSATE (SENOKOT S) TABLET PO SCH ×2 (09:17→21:05)
[2021-03-26] MEDS: polyethylene glycoL POWDER 17 GM (MIRALAX) PACK PO SCH ×2 (09:17→21:05)
[2021-03-26] MEDS: BETAMETHASONE/CLOTRIM CREAM (LOTRISONE) 45 GM TP SCH ×2 (09:17→20:22)
[2021-03-26] MEDS: NICOTINE PATCH REMOVAL TP SCH (09:18)
--- NOTE | 2021-03-26 09:33 | Occupational Ther Daily Note ---
OT Current Status-Daily Note Subjective Pt supine in bed at therapist arrival. Reports pain as 4/10. Agreeable to treatment. Will be co-treating with PT due to poor endurance, activity tolerance, pain, and high fall risk. Appearance Pt returned to supine in bed, all needs within reach. ADL-Treatment Therapy Code Descriptions/Definitions Functional [place] Measure: 0=Not Assessed/NA 4=Minimal Assistance 1=Total Assistance 5=Supervision or Setup 2=Maximal Assistance 6=Modified [place] 3=Moderate Assistance 7=Complete IndependenceSCALE: Activities may be completed with or without assistive devices. 1-Ezsztvjoye-qjikmvi completes the activity by him/herself with no assistance from a helper. 5-Set-up or Clean-up Assistance-helper sets up or cleans up; patient completes activity. [place] assists only prior to or following the activity. 4-Supervision or Touching Assistance-helper provides verbal cues and/or touching/steadying and/or contact guard assistance as patient completes activity. Assistance may be provided throughout the activity or intermittently. 3-Partial/Moderate Assistance-helper does LESS THAN HALF the effort. [place] lifts, holds or supports trunk or limbs, but provides less than half the effort. 2-Substantial/Maximal Assistance-helper does MORE THAN HALF the effort. [place] lifts or holds trunk or limbs and provides more than half the effort. 0-Hxjxyqwzg-sduejt does ALL the effort. Patient does none of the effort to complete the activity. Or, the assistance of 2 or more helpers is required for the patient to complete the activity. If activity was not attempted, code reason: 7-Patient Refused. 9-Not Applicable-not attempted and the patient did not perform the activity before the current illness, exacerbation or injury. 10-Not Attempted due to Environmental Limitations-(lack of equipment, weather restraints, etc.). 88-Not Attempted due to Medical Conditions or Safety Concerns. Bathing Location: L Arm, R Arm, L Upper Leg, R Upper Leg, L Lower Leg (including foot), R Lower Leg (including foot), Chest, Abdomen, Buttocks, Perineal Area Shower/Bathe Self (QC): 3 (min) Upper Body Dressing (QC): 5 Lower Body Dressing (QC): 1 On/Off Footwear: 1 Shower performed; 100% completed in sitting. Prior to shower, OT wrapped RUE and L residual limb. Extremities/incisions c/d/i post bathing task. Assist only to wash R side of buttocks and for balance during lateral pelvic lean due to inability to bear weight on LUE. He sat on shower bench to don shirt, set up/sup for safety. Mod a to transfer back to w/c to don pants. Pt able to thread RLE and residual limb without assist or use of AE, extra time only. He was unable to pull pants completely over hips in sitting this date, likely due to sitting on towels and still being partially damp. Lower QC score secondary to performing in standing vs bed level this date. Assist x2 for clothing management as one clinician maintained patients balance while second pulled pants up to waist. Other Treatment Pt propell w/c throughout unit, using RLE only for propulsion. He performed sit<>stands in parallel bars with mod a, cues for upright posture and NWB on LUE. Pt with poor standing tolerance, requires several sitting rest breaks. UE PROM exercises completed. Pt continues to demonstrate improved R wrist flexion. ~10-15 degrees extension. Re-education on scar tissue, treatment,and healing. Wrist splint replaced by OT following exercises. Pt able to perform AROM L elbow within ordered ROM restrictions (30-120 degrees). 2 sets, 12 reps. Education OT Patient Education: Correct positioning, Energy conservation, Exercise pr ogram, Instructions don/doff splint/brace, Modified ADL techniques, Progress toward Goal/Update tx plan, Purpose of tx/functional activities, Reviewed precautions, Rehab process, Safety issues, W/C management Teaching Recipient: Patient Teaching Methods: Demonstration, Discussion Response to Teaching: Verbalize Understanding, Return Demonstration, Reinforcement Needed OT Short Term Goals Short Term Goals Time Frame: Mar 26, 2021 Eatin Oral hygiene: 4 Toileting hygiene: 3 Shower/bathe self: 3 Upper body dressin Lower body dressin Putting on/taking off footwear: 3 OT Half-Way Goals Half-Way Goals Time Frame: Apr 06, 2021 Eating (QC): 6 Oral Hygiene (QC): 5 Toileting Hygiene (QC): 4 Shower/Bathe Self (QC): 4 Upper Body Dressing (QC): 5 Lower Body Dressing (QC): 4 On/Off Footwear (QC): 4 1=Demonstrate adherence to instructed precautions during ADL tasks. 2=Patient will verbalize/demonstrate understanding of assistive d evices/modifications for ADL. 3=Patient will improve strength/tolerance for activity to enable patient to perform ADL's. OT Education/Plan Problem List/Assessment Assessment: Decreased Activ Tolerance, Decreased Safety Aware, Decreased UE Strength, Dependent Transfers, Impaired Coordination, Impaired Funct Balance, Impaired I ADL's, Impaired Self-Care Skills, Restricted Funct UE ROM Discharge Recommendations Plan/Recommendations: Continue POC Treatment Plan/Plan of Care Patient would benefit from OT for education, treatment and training to promote independence in ADL's, mobility, safety and/or upper extremity function for ADL's. Plan of Care: ADL Retraining, Functional Mobility, Group Exercise/Act as Ind, Orthotic Fitting/Training, UE Funct Exercise/Act, W/C Management Training Treatment Duration: Apr 06, 2021 Frequency: At least 5 of 7 days/Wk (IRF) Estimated Hrs Per Day: 1.5 hours per day Agreement: Yes Rehab Potential: Fair Time/GCodes Start Time: 08:00 Stop Time: 09:30 Total Time Billed (hr/min): 90 Billed Treatment Time 1 visit, ADL x3 (40 min) FA (20 min) EX x2 (30 min) Rukhsana Anderson OT Mar 26, 2021 09:33
[2021-03-26] MEDS: MUPIROCIN 2% OINT 22 GM (BACTROBAN) TUBE TOP SCH ×2 (11:23→20:22)
--- NOTE | 2021-03-26 11:59 | Physical Therapy Daily Note ---
PT Daily Note-Current Subjective Patient in bed pre tx, agrees to PT, voices no complaints of pain. Appearance Patient in bed post tx with nurse call, phone, tray, all needs met. Mental Status Patient Orientation: Normal For Age leg and arm brace Transfers SCALE: Activities may be completed with or without assistive devices. 2-Zcunbgljen-pxzjfaz completes the activity by him/herself with no assistance from a helper. 5-Set-up or Clean-up Assistance-helper sets up or cleans up; patient completes activity. [place] assists only prior to or following the activity. 4-Supervision or Touching Assistance-helper provides verbal cues and/or to uching/steadying and/or contact guard assistance as patient completes activity. Assistance may be provided throughout the activity or intermittently. 3-Partial/Moderate Assistance-helper does LESS THAN HALF the effort. [place] lifts, holds or supports trunk or limbs, but provides less than half the effort. 2-Substantial/Maximal Assistance-helper does MORE THAN HALF the effort. [place] lifts or holds trunk or limbs and provides more than half the effort. 3-Rsashcuop-fvuxxq does ALL the effort. Patient does none of the effort to complete the activity. Or, the assistance of 2 or more helpers is required for the patient to complete the activity. If activity was not attempted, code reason: 7-Patient Refused. 9-Not Applicable-not attempted and the patient did not perform the activity before the current illness, exacerbation or injury. 10-Not Attempted due to Environmental Limitations-(lack of equipment, weather restraints, etc.). 88-Not Attempted due to Medical Conditions or Safety Concerns. Roll Left & Right (QC): 6 Sit to Lying (QC): 6 Lying to Sitting/Side of Bed(Q: 6 Sit to Stand (QC): 3 Chair/Dsx-gm-Muysk Xfer(QC): 3 Weight Bearing Right Lower Extremity: Right Weight Bearing/Tolerated Left Lower Extremity: Left Non Weight Bearing NWB LLE AND LUE; MAY WEIGHT-BEAR THROUGH ELBOW ON RUE. WBAT ON RLE. Wheelchair Training Does the Pt Use a Wheelchair?: Yes Wheel 50 ft with 2 turns (QC): 4 Wheel 150 ft (QC): 4 Type of Wheelchair: Manual SBA, 150'x2, propels back romero using his right leg Exercises NuStep Minutes: 15 NuStep Workload: 1 (no resistance to comply with NWB on BUE's, used to do ROM with right knee and ankle) Treatments bed mobility and transfers, ROM, WC mobility Assessment Current Status: Fair Progress slowly improving sit <-> stand PT Short Term Goals Short Term Goals Time Frame: Mar 25, 2021 Roll Left & Right: 6 Sit to lyin Lying to sitting on side of be: 6 Sit to stand: 4 Chair/vdt-qr-twzdl transfer: 4 Toilet transfer: 4 Wheel 50ft w/2 turns: 4 Wheel 150 feet: 4 PT Photographic Editor Goals Photographic Editor Goals PT [facility] Goals Time Frame: Apr 08, 2021 Roll Left & Right (QC): 6 Sit to Lying (QC): 6 Lying-Sitting on Side/Bed(QC): 6 Sit to Stand (QC): 6 Chair/Ify-hw-Ootru Xfer(QC): 6 Toilet Transfer (QC): 6 Car Transfer (QC): 6 Does the Patient Walk: No and Walking Goal NOT indicated Walk 10 feet (QC): 88 Walk 50ft with 2 Turns (QC): 88 Walk 150 ft (QC): 88 Walking 10ft on Uneven Surface: 88 1 Step (curb) (QC): 88 4 Steps (QC): 88 12 Steps (QC): 88 Picking up an Object (QC): 88 Wheel 50 feet with 2 turns (QC: 6 Type: Manual Wheel 150 feet: 6 PT Plan Problem List Problem List: Activity Tolerance, Functional Strength, Safety, Balance, Gait, Transfer, Bed Mobility, ROM Treatment/Plan Treatment Plan: Continue Plan of Care Treatment Plan: Bed Mobility, Education, Functional Activity Krystin, Functional Strength, Group Therapy, Gait, Safety, Therapeutic Exercise, Transfers Treatment Duration: Apr 08, 2021 Frequency: 6 times per week Estimated Hrs Per Day: 1.5 hours per day Patient and/or Family Agrees t: Yes Safety Risks/Education Patient Education: Transfer Techniques, Reviewed Precautions, Correct Positioning, W/C Management, Safety Issues Teaching Recipient: Patient Teaching Methods: Demonstration, Discussion Response to Teaching: Reinforcement Needed Time/GCodes Time In: 1130 Time Out: 1200 Total Billed Treatment Time: 30 Total Billed Treatment 1 visit EX 15' FA 15' STONEY HOOPER PT Mar 26, 2021 11:59
[2021-03-26 20:07] VITALS: BP 107/68
[2021-03-26] MEDS: traZODone 50 MG (DESYREL) TAB PO SCH (20:19)
[2021-03-26] MEDS: MELATONIN 10 MG TABLET PO SCH (20:19)
[2021-03-26] MEDS: ALPRAZolam 0.25 MG (XANAX) TAB PO PRN (20:19)
[2021-03-26] MEDS: ZOLPIDEM 5 MG (AMBIEN) TAB PO PRN (20:19)
[2021-03-27 07:54] VITALS: BP 99/63
[2021-03-27] MEDS: SENNA W/DOCUSATE (SENOKOT S) TABLET PO SCH ×2 (08:33→19:38)
[2021-03-27] MEDS: LINEZOLID (ZYVOX) 600 MG TAB PO SCH ×2 (08:33→21:14)
[2021-03-27] MEDS: NICOTINE 21 MG (NICODERM) PATCH TD SCH (08:34)
[2021-03-27] MEDS: VITAMIN D3 125 MCG (5,000 UNITS) CAPSULE PO SCH (08:34)
[2021-03-27] MEDS: DOCUSATE SODIUM 100 MG (COLACE) CAP PO SCH ×2 (08:35→19:38)
[2021-03-27] MEDS: NICOTINE PATCH REMOVAL TP SCH (08:36)
[2021-03-27] MEDS: DICLOFENAC 1% GEL 100 GM (VOLTAREN) TUBE TOP SCH ×3 (08:36→21:15)
[2021-03-27] MEDS: BETAMETHASONE/CLOTRIM CREAM (LOTRISONE) 45 GM TP SCH ×2 (08:36→21:15)
[2021-03-27] MEDS: polyethylene glycoL POWDER 17 GM (MIRALAX) PACK PO SCH ×2 (08:36→19:38)
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
[2021-03-27] MEDS: MUPIROCIN 2% OINT 22 GM (BACTROBAN) TUBE TOP SCH ×2 (09:56→21:15)
--- NOTE | 2021-03-27 09:59 | Physical Therapy Daily Note ---
PT Daily Note-Current Subjective Patient in bed pre tx, agrees to PT, has 4/10 pain, will be co-treating with OT due to poor patient mobility, strength, endurance, complicated weight bearing status, coordinate UE and LE during activity, safety and reduce risk of falls. Appearance Patient sitting EOB post tx with nurse call, phone, tray, all needs met. Mental Status Patient Orientation: Person, Place, Situation Transfers SCALE: Activities may be completed with or without assistive devices. 1-Hrijbeadmt-dsecmsq completes the activity by him/herself with no assistance from a helper. 5-Set-up or Clean-up Assistance-helper sets up or cleans up; patient completes activity. [place] assists only prior to or following the activity. 4-Supervision or Touching Assistance-helper provides verbal cues and/or touching/steadying and/or contact guard assistance as patient completes activity. Assistance may be provided throughout the activity or intermittently. 3-Partial/Moderate Assistance-helper does LESS THAN HALF the effort. [place] lifts, holds or supports trunk or limbs, but provides less than half the effort. 2-Substantial/Maximal Assistance-helper does MORE THAN HALF the effort. [place] lifts or holds trunk or limbs and provides more than half the effort. 2-Rssrawthc-mprmmv does ALL the effort. Patient does none of the effort to complete the activity. Or, the assistance of 2 or more helpers is required for the patient to complete the activity. If activity was not attempted, code reason: 7-Patient Refused. 9-Not Applicable-not attempted and the patient did not perform the activity before the current illness, exacerbation or injury. 10-Not Attempted due to Environmental Limitations-(lack of equipment, weather restraints, etc.). 88-Not Attempted due to Medical Conditions or Safety Concerns. Roll Left & Right (QC): 6 Sit to Lying (QC): 6 Lying to Sitting/Side of Bed(Q: 6 Sit to Stand (QC): 3 Chair/Pit-uh-Gxkho Xfer(QC): 3 Weight Bearing Right Lower Extremity: Right Weight Bearing/Tolerated Left Lower Extremity: Left Non Weight Bearing NWB LLE AND LUE; MAY WEIGHT-BEAR THROUGH ELBOW ON RUE. WBAT ON RLE. Wheelchair Training Does the Pt Use a Wheelchair?: Yes Wheel 50 ft with 2 turns (QC): 4 Wheel 150 ft (QC): 4 Type of Wheelchair: Manual 300', 150', patient practiced obstacle course with cones with just a few cues for direction Exercises stood in parallel bars x3 for gastroc stretching and leg strengthening, approx 30 sec each time, no UE weight bearing, just resting on bars for balance, pa juan manuel also performed a supine hip flexor stretch for 5 min and seated UE ROM activity catching a ball Treatments PT performed bed mobility and transfers, standing, stretching, seated balance, WC mobility, OT performed UE activity, UE positioning and safety during activity, cone activity Assessment Current Status: Fair Progress slowly progressing RLE strength and ankle ROM PT Short Term Goals Short Term Goals Time Frame: Mar 25, 2021 Roll Left & Right: 6 Sit to lyin Lying to sitting on side of be: 6 Sit to stand: 4 Chair/dxg-nm-cytjj transfer: 4 Toilet transfer: 4 Wheel 50ft w/2 turns: 4 Wheel 150 feet: 4 PT Insulation Cupola Operator Goals Insulation Cupola Operator Goals PT Intermediate Goals Time Frame: Apr 08, 2021 Roll Left & Right (QC): 6 Sit to Lying (QC): 6 Lying-Sitting on Side/Bed(QC): 6 Sit to Stand (QC): 6 Chair/Hpk-re-Mbodk Xfer(QC): 6 Toilet Transfer (QC): 6 Car Transfer (QC): 6 Does the Patient Walk: No and Walking Goal NOT indicated Walk 10 feet (QC): 88 Walk 50ft with 2 Turns (QC): 88 Walk 150 ft (QC): 88 Walking 10ft on Uneven Surface: 88 1 Step (curb) (QC): 88 4 Steps (QC): 88 12 Steps (QC): 88 Picking up an Object (QC): 88 Wheel 50 feet with 2 turns (QC: 6 Type: Manual Wheel 150 feet: 6 PT Plan Problem List Problem List: Activity Tolerance, Functional Strength, Safety, Balance, Gait, Transfer, Bed Mobility, ROM Treatment/Plan Treatment Plan: Continue Plan of Care Treatment Plan: Bed Mobility, Education, Functional Activity Krystin, Functional Strength, Group Therapy, Gait, Safety, Therapeutic Exercise, Transfers Treatment Duration: Apr 08, 2021 Frequency: 6 times per week Estimated Hrs Per Day: 1.5 hours per day Patient and/or Family Agrees t: Yes Safety Risks/Education Patient Education: Transfer Techniques, Reviewed Precautions, Correct Positioning, W/C Management, Safety Issues Teaching Recipient: Patient Teaching Methods: Demonstration, Discussion Response to Teaching: Reinforcement Needed Time/GCodes Time In: 0900 Time Out: 1000 Total Billed Treatment Time: 60 Total Billed Treatment 1 visit EX 30' FA 30' co-treated for 60' STONEY HOOPER PT Mar 27, 2021 09:59
--- NOTE | 2021-03-27 10:04 | Occupational Ther Daily Note ---
OT Current Status-Daily Note Subjective Pt reports pain as 4/10. Agreeable to OT/PT. Co-treat with PT due to poor endurance/activity tolerance, safety, balance, and increased fall risk. Appearance Pt left sitting EOB, all needs within reach. ADL-Treatment Therapy Code Descriptions/Definitions Functional [place] Measure: 0=Not Assessed/NA 4=Minimal Assistance 1=Total Assistance 5=Supervision or Setup 2=Maximal Assistance 6=Modified [place] 3=Moderate Assistance 7=Complete IndependenceSCALE: Activities may be completed with or without assistive devices. 6-Fnbmrcucgd-gqfqcnf completes the activity by him/herself with no assistance from a helper. 5-Set-up or Clean-up Assistance-helper sets up or cleans up; patient completes activity. [place] assists only prior to or following the activity. 4-Supervision or Touching Assistance-helper provides verbal cues and/or touching/steadying and/or contact guard assistance as patient completes activity. Assistance may be provided throughout the activity or intermittently. 3-Partial/Moderate Assistance-helper does LESS THAN HALF the effort. [place] lifts, holds or supports trunk or limbs, but provides less than half the effort. 2-Substantial/Maximal Assistance-helper does MORE THAN HALF the effort. [place] lifts or holds trunk or limbs and provides more than half the effort. 9-Zjmtksppc-hvkavu does ALL the effort. Patient does none of the effort to complete the activity. Or, the assistance of 2 or more helpers is required for the patient to complete the activity. If activity was not attempted, code reason: 7-Patient Refused. 9-Not Applicable-not attempted and the patient did not perform the activity before the current illness, exacerbation or injury. 10-Not Attempted due to Environmental Limitations-(lack of equipment, weather restraints, etc.). 88-Not Attempted due to Medical Conditions or Safety Concerns. Lower Body Dressing (QC): 5 Pt sitting EOB at therapy arrival. Returns to supine to don knee brace. Requires min a for correct positioning. Extra time to fasten velcro straps, but no assist required. He propelled w/c through large obstacle course with goal to improve object avoidance and w/c management around tight spaces. Pt performs well and demonstrates good safety and increased speed with task when compared to last attempt. No cues needed. He completed multiple sit<>stands in parallel bars. Cues needed to maintain NWB through LUE and for upright posture. Pt continues to have exhibit poor standing tolerance and requires encouragement to increase standing time/goal. Pt only able to tolerate standing for ~25-35 seconds each bout. He sat EOM to address dynamic sitting balance and core strengthening while reaching/throwing ball in multiple planes. No LOB but requires breaks secondary to limited activity tolerance. Education OT Patient Education: Correct positioning, Energy conservation, Modified ADL techniques, Progress toward Goal/Update tx plan, Purpose of tx/functional activities, Reviewed precautions, Rehab process, Safety issues, Transfer techniques, W/C management Teaching Recipient: Patient Teaching Methods: Demonstration, Discussion Response to Teaching: Verbalize Understanding, Return Demonstration OT Short Term Goals Short Term Goals Time Frame: Mar 26, 2021 Eatin Oral hygiene: 4 Toileting hygiene: 3 Shower/bathe self: 3 Upper body dressin Lower body dressin Putting on/taking off footwear: 3 OT Materials Analyst Goals Half-Way Goals Time Frame: Apr 06, 2021 Eating (QC): 6 Oral Hygiene (QC): 5 Toileting Hygiene (QC): 4 Shower/Bathe Self (QC): 4 Upper Body Dressing (QC): 5 Lower Body Dressing (QC): 4 On/Off Footwear (QC): 4 1=Demonstrate adherence to instructed precautions during ADL tasks. 2=Patient will verbalize/demonstrate understanding of assistive devices/modifications for ADL. 3=Patient will improve strength/tolerance for activity to enable patient to perform ADL's. OT Education/Plan Problem List/Assessment Assessment: Decreased Activ Tolerance, Decreased UE Strength, Dependent Transfers, Impaired Coordination, Impaired Funct Balance, Impaired I ADL's, Impaired Self-Care Skills, Restricted Funct UE ROM Discharge Recommendations Plan/Recommendations: Continue POC Treatment Plan/Plan of Care Treatment,Training & Education: Yes Patient would benefit from OT for education, treatment and training to promote independence in ADL's, mobility, safety and/or upper extremity function for ADL's. Plan of Care: ADL Retraining, Functional Mobility, Group Exercise/Act as Ind, Orthotic Fitting/Training, UE Funct Exercise/Act, W/C Management Training Treatment Duration: Apr 06, 2021 Frequency: At least 5 of 7 days/Wk (IRF) Estimated Hrs Per Day: 1.5 hours per day Agreement: Yes Rehab Potential: Fair Time/GCodes Start Time: 09:00 Stop Time: 10:00 Total Time Billed (hr/min): 60 Billed Treatment Time 1 visit ADL (20 min) FA x3 (40 min) Rukhsana Anderson OT Mar 27, 2021 10:04
--- NOTE | 2021-03-27 11:29 | Physical Therapy Daily Note ---
PT Daily Note-Current Subjective Patient in bed pre tx, agrees to PT, voices no complaints of pain. Appearance Patient in bed post tx with nurse call, phone, tray, all needs met. Mental Status Patient Orientation: Person, Place, Situation Transfers SCALE: Activities may be completed with or without assistive devices. 8-Zxqsuloqer-ffqhdvp completes the activity by him/herself with no assistance from a helper. 5-Set-up or Clean-up Assistance-helper sets up or cleans up; patient completes activity. [place] assists only prior to or following the activity. 4-Supervision or Touching Assistance-helper provides verbal cues and/or touching/steadying and/or contact guard assistance as patient completes activity. Assistance may be provided throughout the activity or intermittently. 3-Partial/Moderate Assistance-helper does LESS THAN HALF the effort. [place] lifts, holds or supports trunk or limbs, but provides less than half the effort. 2-Substantial/Maximal Assistance-helper does MORE THAN HALF the effort. [place] lifts or holds trunk or limbs and provides more than half the effort. 6-Jjhhlfaro-tijqxu does ALL the effort. Patient does none of the effort to complete the activity. Or, the assistance of 2 or more helpers is required for the patient to complete the activity. If activity was not attempted, code reason: 7-Patient Refused. 9-Not Applicable-not attempted and the patient did not perform the activity before the current illness, exacerbation or injury. 10-Not Attempted due to Environmental Limitations-(lack of equipment, weather restraints, etc.). 88-Not Attempted due to Medical Conditions or Safety Concerns. Roll Left & Right (QC): 6 Sit to Lying (QC): 6 Lying to Sitting/Side of Bed(Q: 6 Sit to Stand (QC): 3 Chair/Uky-fk-Vhcsf Xfer(QC): 3 Weight Bearing Right Lower Extremity: Right Weight Bearing/Tolerated Left Lower Extremity: Left Non Weight Bearing NWB LLE AND LUE; MAY WEIGHT-BEAR THROUGH ELBOW ON RUE. WBAT ON RLE. Wheelchair Training Does the Pt Use a Wheelchair?: Yes Wheel 50 ft with 2 turns (QC): 4 Wheel 150 ft (QC): 4 Type of Wheelchair: Manual 150'x2, patient propels backward using his right foot, occasional cues for obstacles Exercises NuStep Minutes: 15 NuStep Workload: 1 (no resistance so he doesn't violate his NWB on both UE's, used for ROM in right knee and ankle) Treatments bed mobility and transfers, WC mobility, ROM/stretching Assessment Current Status: Fair Progress slowly improving strength and ROM in RLE PT Short Term Goals Short Term Goals Time Frame: Mar 25, 2021 Roll Left & Right: 6 Sit to lyin Lying to sitting on side of be: 6 Sit to stand: 4 Chair/wlz-go-iejwz transfer: 4 Toilet transfer: 4 Wheel 50ft w/2 turns: 4 Wheel 150 feet: 4 PT Prison Goals Prison Goals PT Prison Goals Time Frame: Apr 08, 2021 Roll Left & Right (QC): 6 Sit to Lying (QC): 6 Lying-Sitting on Side/Bed(QC): 6 Sit to Stand (QC): 6 Chair/Rdu-es-Fbbub Xfer(QC): 6 Toilet Transfer (QC): 6 Car Transfer (QC): 6 Does the Patient Walk: No and Walking Goal NOT indicated Walk 10 feet (QC): 88 Walk 50ft with 2 Turns (QC): 88 Walk 150 ft (QC): 88 Walking 10ft on Uneven Surface: 88 1 Step (curb) (QC): 88 4 Steps (QC): 88 12 Steps (QC): 88 Picking up an Object (QC): 88 Wheel 50 feet with 2 turns (QC: 6 Type: Manual Wheel 150 feet: 6 PT Plan Problem List Problem List: Activity Tolerance, Functional Strength, Safety, Balance, Gait, Transfer, Bed Mobility, ROM Treatment/Plan Treatment Plan: Continue Plan of Care Treatment Plan: Bed Mobility, Education, Functional Activity Krystin, Functional Strength, Group Therapy, Gait, Safety, Therapeutic Exercise, Transfers Treatment Duration: Apr 08, 2021 Frequency: 6 times per week Estimated Hrs Per Day: 1.5 hours per day Patient and/or Family Agrees t: Yes Safety Risks/Education Patient Education: Transfer Techniques, Correct Positioning, W/C Management, Safety Issues Teaching Recipient: Patient Teaching Methods: Demonstration, Discussion Response to Teaching: Reinforcement Needed Time/GCodes Time In: 1100 Time Out: 1130 Total Billed Treatment Time: 30 Total Billed Treatment 1 visit EX 15' FA 15' STONEY HOOPER PT Mar 27, 2021 11:29
--- NOTE | 2021-03-27 12:52 | Occupational Ther Daily Note ---
OT Current Status-Daily Note Subjective Pt reports fatigue from earlier therapies, still agreeable to treatment. Appearance Pt left supine, all needs within reach. ADL-Treatment Therapy Code Descriptions/Definitions Functional [place] Measure: 0=Not Assessed/NA 4=Minimal Assistance 1=Total Assistance 5=Supervision or Setup 2=Maximal Assistance 6=Modified [place] 3=Moderate Assistance 7=Complete IndependenceSCALE: Activities may be completed with or without assistive devices. 4-Rdjntawmut-odbapny completes the activity by him/herself with no assistance from a helper. 5-Set-up or Clean-up Assistance-helper sets up or cleans up; patient completes activity. [place] assists only prior to or following the activity. 4-Supervision or Touching Assistance-helper provides verbal cues and/or touching/steadying and/or contact guard assistance as patient completes activity. Assistance may be provided throughout the activity or intermittently. 3-Partial/Moderate Assistance-helper does LESS THAN HALF the effort. [place] lifts, holds or supports trunk or limbs, but provides less than half the effort. 2-Substantial/Maximal Assistance-helper does MORE THAN HALF the effort. [place] lifts or holds trunk or limbs and provides more than half the effort. 5-Apxeubjil-gsiotv does ALL the effort. Patient does none of the effort to complete the activity. Or, the assistance of 2 or more helpers is required for the patient to complete the activity. If activity was not attempted, code reason: 7-Patient Refused. 9-Not Applicable-not attempted and the patient did not perform the activity before the current illness, exacerbation or injury. 10-Not Attempted due to Environmental Limitations-(lack of equipment, weather restraints, etc.). 88-Not Attempted due to Medical Conditions or Safety Concerns. Other Treatment RUE PROM exercises completed. Pt continues to demonstrate improved R wrist flexion. Extension performed to pain tolerance, ~15 degrees. OT attempted to thoroughly clean R hand, education on hygiene. Wrist splint replaced by OT following exercises. Pt able to perform AROM L elbow within ordered ROM restrictions (30-120 degrees). 2 sets, 12 reps. Education OT Patient Education: Correct positioning, Exercise program, Modified ADL techniques, Progress toward Goal/Update tx plan, Purpose of tx/functional activities, Reviewed precautions Teaching Recipient: Patient Teaching Methods: Demonstration, Discussion Response to Teaching: Verbalize Understanding, Return Demonstration, Reinforcement Needed OT Short Term Goals Short Term Goals Time Frame: Mar 26, 2021 Eatin Oral hygiene: 4 Toileting hygiene: 3 Shower/bathe self: 3 Upper body dressin Lower body dressin Putting on/taking off footwear: 3 OT Shelter Goals Reclamation Furnace Operator Goals Time Frame: Apr 06, 2021 Eating (QC): 6 Oral Hygiene (QC): 5 Toileting Hygiene (QC): 4 Shower/Bathe Self (QC): 4 Upper Body Dressing (QC): 5 Lower Body Dressing (QC): 4 On/Off Footwear (QC): 4 1=Demonstrate adherence to instructed precautions during ADL tasks. 2=Patient will verbalize/demonstrate understanding of assistive devices/modifications for ADL. 3=Patient will improve strength/tolerance for activity to enable patient to perform ADL's. OT Education/Plan Problem List/Assessment Assessment: Decreased Activ Tolerance, Decreased UE Strength, Impaired Coordination, Impaired Funct Balance, Impaired I ADL's, Impaired Self-Care Skills, Restricted Funct UE ROM Discharge Recommendations Plan/Recommendations: Continue POC Treatment Plan/Plan of Care Treatment,Training & Education: Yes Patient would benefit from OT for education, treatment and training to promote independence in ADL's, mobility, safety and/or upper extremity function for ADL's. Plan of Care: ADL Retraining, Functional Mobility, Group Exercise/Act as Ind, Orthotic Fitting/Training, UE Funct Exercise/Act, W/C Management Training Treatment Duration: Apr 06, 2021 Frequency: At least 5 of 7 days/Wk (IRF) Estimated Hrs Per Day: 1.5 hours per day Agreement: Yes Rehab Potential: Fair Time/GCodes Start Time: 11:35 Stop Time: 12:05 Total Time Billed (hr/min): 30 Billed Treatment Time 1 visit, EX x2 JustinRukhsana OT Mar 27, 2021 12:52
[2021-03-27 20:25] VITALS: BP 116/78
[2021-03-27] MEDS: MELATONIN 10 MG TABLET PO SCH (21:13)
[2021-03-27] MEDS: traZODone 50 MG (DESYREL) TAB PO SCH (21:14)
[2021-03-27] MEDS: ALPRAZolam 0.25 MG (XANAX) TAB PO PRN (21:14)
[2021-03-27] MEDS: ZOLPIDEM 5 MG (AMBIEN) TAB PO PRN (21:14)
[2021-03-28 07:39] VITALS: BP 101/60
[2021-03-28] MEDS: VITAMIN D3 125 MCG (5,000 UNITS) CAPSULE PO SCH (08:12)
[2021-03-28] MEDS: SENNA W/DOCUSATE (SENOKOT S) TABLET PO SCH ×2 (08:12→20:43)
[2021-03-28] MEDS: LINEZOLID (ZYVOX) 600 MG TAB PO SCH ×2 (08:13→20:44)
[2021-03-28] MEDS: polyethylene glycoL POWDER 17 GM (MIRALAX) PACK PO SCH ×2 (08:13→19:29)
[2021-03-28] MEDS: NICOTINE 21 MG (NICODERM) PATCH TD SCH (08:13)
[2021-03-28] MEDS: DOCUSATE SODIUM 100 MG (COLACE) CAP PO SCH ×2 (08:13→19:29)
[2021-03-28] MEDS: BETAMETHASONE/CLOTRIM CREAM (LOTRISONE) 45 GM TP SCH ×2 (08:17→19:29)
[2021-03-28] MEDS: MUPIROCIN 2% OINT 22 GM (BACTROBAN) TUBE TOP SCH ×2 (08:18→20:45)
[2021-03-28] MEDS: DICLOFENAC 1% GEL 100 GM (VOLTAREN) TUBE TOP SCH ×3 (08:18→20:45)
--- NOTE | 2021-03-28 09:01 | Physical Therapy Daily Note ---
PT Daily Note-Current Subjective Pt in bed upon arrival and agrees to co-treat. Pt states pain 4/10 in L LE. Pain Numeric Pain Scale: 4 Location: Left Mental Status Patient Orientation: Person, Place, Time, Situation Transfers SCALE: Activities may be completed with or without assistive devices. 4-Wfhdieopaa-mxrlwua completes the activity by him/herself with no assistance from a helper. 5-Set-up or Clean-up Assistance-helper sets up or cleans up; patient completes activity. [place] assists only prior to or following the activity. 4-Supervision or Touching Assistance-helper provides verbal cues and/or touching/steadying and/or contact guard assistance as patient completes activity. Assistance may be provided throughout the activity or intermittently. 3-Partial/Moderate Assistance-helper does LESS THAN HALF the effort. [place] li fts, holds or supports trunk or limbs, but provides less than half the effort. 2-Substantial/Maximal Assistance-helper does MORE THAN HALF the effort. [place] lifts or holds trunk or limbs and provides more than half the effort. 0-Ywgkmfujm-ycbfxi does ALL the effort. Patient does none of the effort to complete the activity. Or, the assistance of 2 or more helpers is required for the patient to complete the activity. If activity was not attempted, code reason: 7-Patient Refused. 9-Not Applicable-not attempted and the patient did not perform the activity before the current illness, exacerbation or injury. 10-Not Attempted due to Environmental Limitations-(lack of equipment, weather restraints, etc.). 88-Not Attempted due to Medical Conditions or Safety Concerns. Sit to Lying (QC): 5 Lying to Sitting/Side of Bed(Q: 5 Sit to Stand (QC): 3 Chair/Cvi-bv-Njmve Xfer(QC): 3 Weight Bearing Right Lower Extremity: Right Weight Bearing/Tolerated Left Lower Extremity: Left Non Weight Bearing NWB LLE AND LUE; MAY WEIGHT-BEAR THROUGH ELBOW ON RUE. WBAT ON RLE. Wheelchair Training Does the Pt Use a Wheelchair?: Yes Wheel 50 ft with 2 turns (QC): 4 Wheel 150 ft (QC): 4 Type of Wheelchair: Manual 300', 150' VC to avoid obstacles Treatments Co-treat d/t weakness, poor mobility, poor transfers, and decrease risk of falls. PT focused on transfers, mobility, and LE strengthening. OT focused on shaving, ADLs, and UE strengthening/positioning. Pt in bed sit to supine and SPT to WC ModA. Pt completes ADLs (see OT note) then propels WC 300' on ARU to therapy gym. Pt performs standing balance/strengthening activity, holding standing while leaning on mat with R elbow and at waist at highest height. Pt holds standing 2 mins, ModA sit to stand and [place] for steadiness. Pt sit to stand ModA again, using L UE functional grasp activity (see OT note) and stands for 2 mins 47 seconds. Pt sit to stand again, holding for 1 min 10 seconds. Pt then propels self back to room, SPT back to bed ModA and sit to supine SBA. Pt remains in bed with all needs met, call light in hand. Assessment Current Status: Poor Progress poor progress in mobility, transfers, and strengthening. Pt limited by WB precautions PT Short Term Goals Short Term Goals Time Frame: Mar 25, 2021 Roll Left & Right: 6 Sit to lyin Lying to sitting on side of be: 6 Sit to stand: 4 Chair/ayj-pj-rrpni transfer: 4 Toilet transfer: 4 Wheel 50ft w/2 turns: 4 Wheel 150 feet: 4 PT Geriatric Nurse Goals Nursing Home Goals PT Geriatric Nurse Goals Time Frame: Apr 08, 2021 Roll Left & Right (QC): 6 Sit to Lying (QC): 6 Lying-Sitting on Side/Bed(QC): 6 Sit to Stand (QC): 6 Chair/All-wu-Hpznt Xfer(QC): 6 Toilet Transfer (QC): 6 Car Transfer (QC): 6 Does the Patient Walk: No and Walking Goal NOT indicated Walk 10 feet (QC): 88 Walk 50ft with 2 Turns (QC): 88 Walk 150 ft (QC): 88 Walking 10ft on Uneven Surface: 88 1 Step (curb) (QC): 88 4 Steps (QC): 88 12 Steps (QC): 88 Picking up an Object (QC): 88 Wheel 50 feet with 2 turns (QC: 6 Type: Manual Wheel 150 feet: 6 PT Plan Treatment/Plan Treatment Plan: Continue Plan of Care Treatment Plan: Bed Mobility, Education, Functional Activity Krystin, Functional Strength, Group Therapy, Gait, Safety, Therapeutic Exercise, Transfers Treatment Duration: Apr 08, 2021 Frequency: 6 times per week Estimated Hrs Per Day: 1.5 hours per day Patient and/or Family Agrees t: Yes Time/GCodes Time In: 800 Time Out: 900 Total Billed Treatment Time: 60 Total Billed Treatment 1, FA x2, WC, EX NORI BAKER PBX TEACHER Mar 28, 2021 09:01
[2021-03-28] MEDS: NICOTINE PATCH REMOVAL TP SCH (09:02)
--- NOTE | 2021-03-28 09:03 | Occupational Ther Daily Note ---
OT Current Status-Daily Note Subjective Pt reports pain as 4/10. Agreeable to OT/PT. Co-treat with PT due to poor endurance/activity tolerance, safety, balance, and high fall risk Appearance Pt returned to supine in bed, all needs within reach. ADL-Treatment Therapy Code Descriptions/Definitions Functional [place] Measure: 0=Not Assessed/NA 4=Minimal Assistance 1=Total Assistance 5=Supervision or Setup 2=Maximal Assistance 6=Modified [place] 3=Moderate Assistance 7=Complete IndependenceSCALE: Activities may be completed with or without assistive devices. 5-Jqzcnsiwxh-jazwrfs completes the activity by him/herself with no assistance from a helper. 5-Set-up or Clean-up Assistance-helper sets up or cleans up; patient completes activity. [place] assists only prior to or following the activity. 4-Supervision or Touching Assistance-helper provides verbal cues and/or touching/steadying and/or contact guard assistance as patient completes activity. Assistance may be provided throughout the activity or intermittently. 3-Partial/Moderate Assistance-helper does LESS THAN HALF the effort. [place] lifts, holds or supports trunk or limbs, but provides less than half the effort. 2-Substantial/Maximal Assistance-helper does MORE THAN HALF the effort. [place] lifts or holds trunk or limbs and provides more than half the effort. 9-Xxjcfgohn-cbewts does ALL the effort. Patient does none of the effort to complete the activity. Or, the assistance of 2 or more helpers is required for the patient to complete the activity. If activity was not attempted, code reason: 7-Patient Refused. 9-Not Applicable-not attempted and the patient did not perform the activity before the current illness, exacerbation or injury. 10-Not Attempted due to Environmental Limitations-(lack of equipment, weather restraints, etc.). 88-Not Attempted due to Medical Conditions or Safety Concerns. Oral Hygiene (QC): 6 Transfer to w/c with mod a, reminder on set up/positioning prior to transfer. Pt propelled w/c into bathroom to complete oral care, shaving, and face washing. Extra time required for set up, but no assist needed. Pt utilizes L hand for majority of tasks and uses R hand more as stabilizer. Other Treatment Pt propelled w/c throughout unit. Min vc's only for attention to surroundings/object avoidance. Pt completed sit<>stand x3. Goal to improve standing tolerance, balance, LE strength, weight shifting and UE coordination. Pt standing in front of mat with R elbow resting on large wedge. Mat raised for pt to use as stabilizing tool. Great improvement in standing tolerance this da te. Standing times included 2:00, 2:47, and 1:10. Lengthy sitting rest breaks required in between standing bouts. While standing, pt encouraged to reach slightly out of [place] for cards in order to flip over into separate piles. No significant lob or unsteadiness observed. min-mod a x2 for standing balance during task. Education OT Patient Education: Correct positioning, Energy conservation, Modified ADL techniques, Progress toward Goal/Update tx plan, Purpose of tx/functional activities, Reviewed precautions, Rehab process, Safety issues, Transfer techniques, W/C management Teaching Recipient: Patient Teaching Methods: Demonstration, Discussion Response to Teaching: Verbalize Understanding, Return Demonstration, Reinforcement Needed OT Short Term Goals Short Term Goals Time Frame: Mar 26, 2021 Eatin Oral hygiene: 4 Toileting hygiene: 3 Shower/bathe self: 3 Upper body dressin Lower body dressin Putting on/taking off footwear: 3 OT Alf Goals Mobile Developer Goals Time Frame: Apr 06, 2021 Eating (QC): 6 Oral Hygiene (QC): 5 Toileting Hygiene (QC): 4 Shower/Bathe Self (QC): 4 Upper Body Dressing (QC): 5 Lower Body Dressing (QC): 4 On/Off Footwear (QC): 4 1=Demonstrate adherence to instructed precautions during ADL tasks. 2=Patient will verbalize/demonstrate understanding of assistive devices/modifications for ADL. 3=Patient will improve strength/tolerance for activity to enable patient to pe rform ADL's. OT Education/Plan Problem List/Assessment Assessment: Decreased Activ Tolerance, Decreased Safety Aware, Decreased UE Strength, Dependent Transfers, Impaired Coordination, Impaired Funct Balance, I mpaired I ADL's, Impaired Self-Care Skills, Restricted Funct UE ROM Discharge Recommendations Plan/Recommendations: Continue POC Treatment Plan/Plan of Care Treatment,Training & Education: Yes Patient would benefit from OT for education, treatment and training to promote independence in ADL's, mobility, safety and/or upper extremity function for ADL's. Plan of Care: ADL Retraining, Functional Mobility, Group Exercise/Act as Ind, Orthotic Fitting/Training, UE Funct Exercise/Act, W/C Management Training Treatment Duration: Apr 06, 2021 Frequency: At least 5 of 7 days/Wk (IRF) Estimated Hrs Per Day: 1.5 hours per day Agreement: Yes Rehab Potential: Fair Time/GCodes Start Time: 08:00 Stop Time: 09:00 Total Time Billed (hr/min): 60 Billed Treatment Time 1 visit ADL x2 (30 min) FA x2 (30 min) Rukhsana Anderson OT Mar 28, 2021 09:03
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
--- NOTE | 2021-03-28 11:35 | Occupational Ther Daily Note ---
OT Current Status-Daily Note Subjective Pt agreeable to treatment. Appearance Pt left supine, all needs within reach at end of treatment. ADL-Treatment Therapy Code Descriptions/Definitions Functional [place] Measure: 0=Not Assessed/NA 4=Minimal Assistance 1=Total Assistance 5=Supervision or Setup 2=Maximal Assistance 6=Modified [place] 3=Moderate Assistance 7=Complete IndependenceSCALE: Activities may be completed with or without assistive devices. 9-Scfxwgfrxq-kphiysh completes the activity by him/herself with no assistance from a helper. 5-Set-up or Clean-up Assistance-helper sets up or cleans up; patient completes activity. [place] assists only prior to or following the activity. 4-Supervision or Touching Assistance-helper provides verbal cues and/or touching/steadying and/or contact guard assistance as patient completes activ ity. Assistance may be provided throughout the activity or intermittently. 3-Partial/Moderate Assistance-helper does LESS THAN HALF the effort. [place] lifts, holds or supports trunk or limbs, but provides less than half the effort. 2-Substantial/Maximal Assistance-helper does MORE THAN HALF the effort. [place] lifts or holds trunk or limbs and provides more than half the effort. 8-Wxcozbfqe-dsybqd does ALL the effort. Patient does none of the effort to complete the activity. Or, the assistance of 2 or more helpers is required for the patient to complete the activity. If activity was not attempted, code reason: 7-Patient Refused. 9-Not Applicable-not attempted and the patient did not perform the activity before the current illness, exacerbation or injury. 10-Not Attempted due to Environmental Limitations-(lack of equipment, weather restraints, etc.). 88-Not Attempted due to Medical Conditions or Safety Concerns. Other Treatment RUE wrist/hand PROM exercises completed. Pt continues to demonstrate small improvements in R wrist ROM; flexion>extension. Exercises performed to pain tolerance. Proximal end of incision healing nicely. Small drainage on distal end near palm.Rn informed. Gentle massage around incision for scar management. Wrist splint replaced by OT following exercises. Pt able to perform AROM L elbow within ordered ROM restrictions (30-120 degrees). 2 sets, 15 reps. Education OT Patient Education: Exercise program, Instructions don/doff splint/brace, Progress toward Goal/Update tx plan, Purpose of tx/functional activities, Reviewed precautions, Rehab process Teaching Recipient: Patient Teaching Methods: Demonstration, Discussion Response to Teaching: Verbalize Understanding, Reinforcement Needed OT Short Term Goals Short Term Goals Time Frame: Mar 26, 2021 Eatin Oral hygiene: 4 Toileting hygiene: 3 Shower/bathe self: 3 Upper body dressin Lower body dressin Putting on/taking off footwear: 3 OT Group Home Goals Group Home Goals Time Frame: Apr 06, 2021 Eating (QC): 6 Oral Hygiene (QC): 5 Toileting Hygiene (QC): 4 Shower/Bathe Self (QC): 4 Upper Body Dressing (QC): 5 Lower Body Dressing (QC): 4 On/Off Footwear (QC): 4 1=Demonstrate adherence to instructed precautions during ADL tasks. 2=Patient will verbalize/demonstrate understanding of assistive devices/modifications for ADL. 3=Patient will improve strength/tolerance for activity to enable patient to perform ADL's. OT Education/Plan Problem List/Assessment Assessment: Decreased Activ Tolerance, Decreased UE Strength, Dependent Transfers, Impaired Coordination, Impaired Funct Balance, Impaired I ADL's, Impaired Self-Care Skills, Restricted Funct UE ROM Discharge Recommendations Plan/Recommendations: Continue POC Treatment Plan/Plan of Care Treatment,Training & Education: Yes Patient would benefit from OT for education, treatment and training to promote independence in ADL's, mobility, safety and/or upper extremity function for ADL's. Plan of Care: ADL Retraining, Functional Mobility, Group Exercise/Act as Ind, Orthotic Fitting/Training, UE Funct Exercise/Act, W/C Management Training Treatment Duration: Apr 06, 2021 Frequency: At least 5 of 7 days/Wk (IRF) Estimated Hrs Per Day: 1.5 hours per day Agreement: Yes Rehab Potential: Fair Time/GCodes Start Time: 11:00 Stop Time: 11:30 Total Time Billed (hr/min): 30 Billed Treatment Time 1 visit EX Rukhsana Deutsch OT Mar 28, 2021 11:34
--- NOTE | 2021-03-28 13:55 | Physical Therapy Daily Note ---
PT Daily Note-Current Subjective Pt in bed with nursing in room and agrees to tx. Pt states pain at 4 or 5/10 in R knee during tx Pain Numeric Pain Scale: 5-Moderate Pain Location: Right Location Body Site: Knee Mental Status Patient Orientation: Person, Place, Time, Situation Transfers SCALE: Activities may be completed with or without assistive devices. 2-Mvkcbgsnup-yqyymno completes the activity by him/herself with no assistance from a helper. 5-Set-up or Clean-up Assistance-helper sets up or cleans up; patient completes activity. [place] assists only prior to or following the activity. 4-Supervision or Touching Assistance-helper provides verbal cues and/or touching/steadying and/or contact guard assistance as patient completes activity. Assistance may be provided throughout the activity or intermittently. 3-Partial/Moderate Assistance-helper does LESS THAN HALF the effort. [place] lifts, holds or supports trunk or limbs, but provides less than half the effort. 2-Substantial/Maximal Assistance-helper does MORE THAN HALF the effort. [place] lifts or holds trunk or limbs and provides more than half the effort. 5-Lpfkgnjcz-yolyxa does ALL the effort. Patient does none of the effort to complete the activity. Or, the assistance of 2 or more helpers is required for the patient to complete the activity. If activity was not attempted, code reason: 7-Patient Refused. 9-Not Applicable-not attempted and the patient did not perform the activity before the current illness, exacerbation or injury. 10-Not Attempted due to Environmental Limitations-(lack of equipment, weather restraints, etc.). 88-Not Attempted due to Medical Conditions or Safety Concerns. Roll Left & Right (QC): 6 Sit to Lying (QC): 6 Lying to Sitting/Side of Bed(Q: 6 Sit to Stand (QC): 3 Chair/Wzj-cs-Mjdgx Xfer(QC): 3 Weight Bearing Right Lower Extremity: Right Weight Bearing/Tolerated Left Lower Extremity: Left Non Weight Bearing NWB LLE AND LUE; MAY WEIGHT-BEAR THROUGH ELBOW ON RUE. WBAT ON RLE. Wheelchair Training Does the Pt Use a Wheelchair?: Yes Wheel 50 ft with 2 turns (QC): 4 Wheel 150 ft (QC): 4 Type of Wheelchair: Manual VC to avoid obstacles while going backwards Exercises NuStep Minutes: 10 NuStep Workload: 1 (Low WL to keep WB precautions and increase ROM/Strength in R knee and ankle) Treatments Pt completes bed mobility, then propels WC on ARU to therapy gym. Pt completes NuStep on WL of 1 for 10 minutes. Pt propels self back to room and SPT ModA back to bed. Pt remains in bed with all needs met and call light in hand. Assessment Current Status: Poor Progress Pt has little progress in mobility and strength, limited by WB precautions PT Short Term Goals Short Term Goals Time Frame: Mar 25, 2021 Roll Left & Right: 6 Sit to lyin Lying to sitting on side of be: 6 Sit to stand: 4 Chair/mad-jd-yrspg transfer: 4 Toilet transfer: 4 Wheel 50ft w/2 turns: 4 Wheel 150 feet: 4 PT Furniture Rental Consultant Goals Custodial Goals PT Custodial Goals Time Frame: Apr 08, 2021 Roll Left & Right (QC): 6 Sit to Lying (QC): 6 Lying-Sitting on Side/Bed(QC): 6 Sit to Stand (QC): 6 Chair/Eml-vi-Zixwl Xfer(QC): 6 Toilet Transfer (QC): 6 Car Transfer (QC): 6 Does the Patient Walk: No and Walking Goal NOT indicated Walk 10 feet (QC): 88 Walk 50ft with 2 Turns (QC): 88 Walk 150 ft (QC): 88 Walking 10ft on Uneven Surface: 88 1 Step (curb) (QC): 88 4 Steps (QC): 88 12 Steps (QC): 88 Picking up an Object (QC): 88 Wheel 50 feet with 2 turns (QC: 6 Type: Manual Wheel 150 feet: 6 PT Plan Treatment/Plan Treatment Plan: Continue Plan of Care Treatment Plan: Bed Mobility, Education, Functional Activity Krystin, Functional Strength, Group Therapy, Gait, Safety, Therapeutic Exercise, Transfers Treatment Duration: Apr 08, 2021 Frequency: 6 times per week Estimated Hrs Per Day: 1.5 hours per day Patient and/or Family Agrees t: Yes Time/GCodes Time In: 1330 Time Out: 1400 Total Billed Treatment Time: 30 Total Billed Treatment 1, FA, NORI TOMLIN WINDOW ASSEMBLER Mar 28, 2021 13:54
[2021-03-28 20:00] VITALS: BP 101/66
[2021-03-28] MEDS: ALPRAZolam 0.25 MG (XANAX) TAB PO PRN (20:43)
[2021-03-28] MEDS: ZOLPIDEM 5 MG (AMBIEN) TAB PO PRN (20:43)
[2021-03-28] MEDS: MELATONIN 10 MG TABLET PO SCH (20:43)
[2021-03-28] MEDS: traZODone 50 MG (DESYREL) TAB PO SCH (20:44)
[2021-03-29] MEDS: polyethylene glycoL POWDER 17 GM (MIRALAX) PACK PO SCH ×2 (07:59→19:38)
[2021-03-29] MEDS: SENNA W/DOCUSATE (SENOKOT S) TABLET PO SCH ×2 (07:59→19:49)
[2021-03-29] MEDS: DOCUSATE SODIUM 100 MG (COLACE) CAP PO SCH ×2 (07:59→19:38)
[2021-03-29 08:00] VITALS: BP 107/64
[2021-03-29] MEDS: MUPIROCIN 2% OINT 22 GM (BACTROBAN) TUBE TOP SCH ×2 (08:00→19:54)
[2021-03-29] MEDS: LINEZOLID (ZYVOX) 600 MG TAB PO SCH (08:00)
[2021-03-29] MEDS: DICLOFENAC 1% GEL 100 GM (VOLTAREN) TUBE TOP SCH ×3 (08:00→19:51)
[2021-03-29] MEDS: NICOTINE 21 MG (NICODERM) PATCH TD SCH (08:00)
[2021-03-29] MEDS: VITAMIN D3 125 MCG (5,000 UNITS) CAPSULE PO SCH (08:00)
[2021-03-29] MEDS: NICOTINE PATCH REMOVAL TP SCH (08:00)
[2021-03-29] MEDS: BETAMETHASONE/CLOTRIM CREAM (LOTRISONE) 45 GM TP SCH ×2 (08:01→19:54)
--- NOTE | 2021-03-29 09:03 | Occupational Ther Daily Note ---
OT Current Status-Daily Note Subjective Pt reports that he was unable to get warm last night. Heat turned up. Agreeable to shower. Appearance Pt returned to bed, all needs within reach. ADL-Treatment Therapy Code Descriptions/Definitions Functional [place] Measure: 0=Not Assessed/NA 4=Minimal Assistance 1=Total Assistance 5=Supervision or Setup 2=Maximal Assistance 6=Modified [place] 3=Moderate Assistance 7=Complete IndependenceSCALE: Activities may be completed with or without assistive devices. 2-Nlvrkkgppb-bgcfxmm completes the activity by him/herself with no assistance from a helper. 5-Set-up or Clean-up Assistance-helper sets up or cleans up; patient completes activity. [place] assists only prior to or following the activity. 4-Supervision or Touching Assistance-helper provides verbal cues and/or touching/steadying and/or contact guard assistance as patient completes activity. Assistance may be provided throughout the activity or intermittently. 3-Partial/Moderate Assistance-helper does LESS THAN HALF the effort. [place] lifts, holds or supports trunk or limbs, but provides less than half the effort. 2-Substantial/Maximal Assistance-helper does MORE THAN HALF the effort. [place] lifts or holds trunk or limbs and provides more than half the effort. 8-Eqrezazcr-rfgxee does ALL the effort. Patient does none of the effort to complete the activity. Or, the assistance of 2 or more helpers is required for the patient to complete the activity. If activity was not attempted, code reason: 7-Patient Refused. 9-Not Applicable-not attempted and the patient did not perform the activity before the current illness, exacerbation or injury. 10-Not Attempted due to Environmental Limitations-(lack of equipment, weather restraints, etc.). 88-Not Attempted due to Medical Conditions or Safety Concerns. Bathing Location: L Arm, R Arm, L Upper Leg, R Upper Leg, L Lower Leg (including foot), R Lower Leg (including foot), Chest, Abdomen, Buttocks, Perineal Area Shower/Bathe Self (QC): 3 Upper Body Dressing (QC): 5 Lower Body Dressing (QC): 5 Toilet Transfer (QC): 3 Will be co-treating with PT for part of treatment due to poor endurance, activity tolerance, pain, and high fall risk. Shower performed; 100% completed in sitting. Prior to shower, OT/PT wrapped RUE and L residual limb. Extremities/incisions c/d/i post bathing task. Assist only to wash R side of buttocks and for balance during lateral pelvic lean due to inability to bear weight on LUE. He sat on shower bench to don shirt, set up only. Mod a to transfer from shower bench>w/c>bed in order to don pants. Pt able to thread RLE and residual limb without assist or use of AE, extra time only. No assist required to pull clothing over hips while rolling R/L. He was able to don knee brace, min a for correct positioning. Due to limited R hand coordination,extra time needed to fasten Velcro straps. All adls required extra time this date as pt often took multiple breaks in order to "warm up." Education OT Patient Education: Correct positioning, Energy conservation, Instructions don/doff splint/brace, Modified ADL techniques, Progress toward Goal/Update tx plan, Purpose of tx/functional activities, Reviewed precautions, Rehab process, Safety issues, Transfer techniques, W/C management Teaching Recipient: Patient Teaching Methods: Demonstration, Discussion Response to Teaching: Verbalize Understanding, Return Demonstration, Reinforcement Needed continues to need reminders for proper set up prior to transfer OT Short Term Goals Short Term Goals Time Frame: Mar 26, 2021 Eatin Oral hygiene: 4 Toileting hygiene: 3 Shower/bathe self: 3 Upper body dressin Lower body dressin Putting on/taking off footwear: 3 OT Traffic Manager Goals Traffic Manager Goals Time Frame: Apr 06, 2021 Eating (QC): 6 Oral Hygiene (QC): 5 Toileting Hygiene (QC): 4 Shower/Bathe Self (QC): 4 Upper Body Dressing (QC): 5 Lower Body Dressing (QC): 4 On/Off Footwear (QC): 4 1=Demonstrate adherence to instructed precautions during ADL tasks. 2=Patient will verbalize/demonstrate understanding of assistive devices/modifications for ADL. 3=Patient will improve strength/tolerance for activity to enable patient to perform ADL's. OT Education/Plan Problem List/Assessment Assessment: Decreased Activ Tolerance, Decreased Safety Aware, Decreased UE Strength, Dependent Transfers, Impaired Coordination, Impaired Funct Balance, Impaired I ADL's, Impaired Self-Care Skills, Restricted Funct UE ROM Discharge Recommendations Plan/Recommendations: Continue POC Treatment Plan/Plan of Care Treatment,Training & Education: Yes Patient would benefit from OT for education, treatment and training to promote independence in ADL's, mobility, safety and/or upper extremity function for ADL's. Plan of Care: ADL Retraining, Functional Mobility, Group Exercise/Act as Ind, Orthotic Fitting/Training, UE Funct Exercise/Act, W/C Management Training Treatment Duration: Apr 06, 2021 Frequency: At least 5 of 7 days/Wk (IRF) Estimated Hrs Per Day: 1.5 hours per day Agreement: Yes Rehab Potential: Fair Time/GCodes Start Time: 08:00 Stop Time: 09:00 Total Time Billed (hr/min): 60 Billed Treatment Time 1 visit ADL x4 Rukhsana Anderson OT Mar 29, 2021 09:03
--- NOTE | 2021-03-29 09:57 | Physical Therapy Daily Note ---
PT Daily Note-Current Subjective Pt laying Supine in bed upon arrival. Pt agrees to PT. Mental Status Patient Orientation: Person, Place, Time, Situation Attachments: Other-See Comments (Brace for L stump) Transfers SCALE: Activities may be completed with or without assistive devices. 9-Siommycaeg-vqinvoj completes the activity by him/herself with no assistance from a helper. 5-Set-up or Clean-up Assistance-helper sets up or cleans up; patient completes activity. [place] assists only prior to or following the activity. 4-Supervision or Touching Assistance-helper provides verbal cues and/or touching/steadying and/or contact guard assistance as patient completes activity. Assistance may be provided throughout the activity or intermittently. 3-Partial/Moderate Assistance-helper does LESS THAN HALF the effort. [place] lifts, holds or supports trunk or limbs, but provides less than half the effort. 2-Substantial/Maximal Assistance-helper does MORE THAN HALF the effort. [place] lifts or holds trunk or limbs and provides more than half the effort. 6-Thytqdoup-rzndwm does ALL the effort. Patient does none of the effort to complete the activity. Or, the assistance of 2 or more helpers is required for the patient to complete the activity. If activity was not attempted, code reason: 7-Patient Refused. 9-Not Applicable-not attempted and the patient did not perform the activity before the current illness, exacerbation or injury. 10-Not Attempted due to Environmental Limitations-(lack of equipment, weather restraints, etc.). 88-Not Attempted due to Medical Conditions or Safety Concerns. Sit to Lying (QC): 5 Lying to Sitting/Side of Bed(Q: 4 Sit to Stand (QC): 3 Weight Bearing Right Lower Extremity: Right Weight Bearing/Tolerated Left Lower Extremity: Left Non Weight Bearing NWB LLE AND LUE; MAY WEIGHT-BEAR THROUGH ELBOW ON RUE. WBAT ON RLE. Treatments Will be co-treating with PT for part of treatment due to poor endurance, activity tolerance, pain, and high fall risk. Shower performed; 100% completed in sitting. Prior to shower, OT/PT wrapped RUE and L residual limb. Extremities/incisions c/d/i post bathing task. Assist only to wash R side of buttocks and for balance during lateral pelvic lean due to inability to bear weight on LUE. He sat on shower bench to don shirt, set up only. Mod A to transfer from shower bench>w/c>bed in order to don pants. Pt able to thread RLE and residual limb without assist or use of AE, extra time only. No assist required to pull clothing over hips while rolling R/L. He was able to don knee brace, min a for correct positioning. Due to limited R hand coordination,extra time needed to fasten Velcro straps. All adls required extra time this date as pt often took multiple breaks in order to "warm up." Assessment Current Status: Good Progress Pt still needs assistance with transfers. PT Short Term Goals Short Term Goals Time Frame: Mar 25, 2021 Roll Left & Right: 6 Sit to lyin Lying to sitting on side of be: 6 Sit to stand: 4 Chair/kvo-xg-ojvcv transfer: 4 Toilet transfer: 4 Wheel 50ft w/2 turns: 4 Wheel 150 feet: 4 PT Preparer [employer] And Repairs Goals [facility] Goals PT [facility] Goals Time Frame: Apr 08, 2021 Roll Left & Right (QC): 6 Sit to Lying (QC): 6 Lying-Sitting on Side/Bed(QC): 6 Sit to Stand (QC): 6 Chair/Hof-ot-Oegzu Xfer(QC): 6 Toilet Transfer (QC): 6 Car Transfer (QC): 6 Does the Patient Walk: No and Walking Goal NOT indicated Walk 10 feet (QC): 88 Walk 50ft with 2 Turns (QC): 88 Walk 150 ft (QC): 88 Walking 10ft on Uneven Surface: 88 1 Step (curb) (QC): 88 4 Steps (QC): 88 12 Steps (QC): 88 Picking up an Object (QC): 88 Wheel 50 feet with 2 turns (QC: 6 Type: Manual Wheel 150 feet: 6 PT Plan Problem List Problem List: Activity Tolerance, Functional Strength, Transfer Treatment/Plan Treatment Plan: Continue Plan of Care Treatment Plan: Bed Mobility, Education, Functional Activity Krystin, Functional Strength, Group Therapy, Gait, Safety, Therapeutic Exercise, Transfers Treatment Duration: Apr 08, 2021 Frequency: 6 times per week Estimated Hrs Per Day: 1.5 hours per day Patient and/or Family Agrees t: Yes Safety Risks/Education Patient Education: Transfer Techniques, Correct Positioning Teaching Recipient: Patient Teaching Methods: Discussion Response to Teaching: Verbalize Understanding Time/GCodes Time In: 800 Time Out: 845 Total Billed Treatment Co-treat w/OT for 45m 1, FA x3 (45m) FRANDY CORNELIUS THEATRICAL VARIETY AGENT Mar 29, 2021 09:57
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
--- NOTE | 2021-03-29 11:53 | Occupational Ther Daily Note ---
OT Current Status-Daily Note Subjective Pt continues to c/o being too cold. Agreeable to treatment. Appearance Pt left supine in bed, all needs within reach. ADL-Treatment Therapy Code Descriptions/Definitions Functional [place] Measure: 0=Not Assessed/NA 4=Minimal Assistance 1=Total Assistance 5=Supervision or Setup 2=Maximal Assistance 6=Modified [place] 3=Moderate Assistance 7=Complete IndependenceSCALE: Activities may be completed with or without assistive devices. 8-Kenvxtzsum-fmbdkwg completes the activity by him/herself with no assistance from a helper. 5-Set-up or Clean-up Assistance-helper sets up or cleans up; patient completes activity. [place] assists only prior to or following the activity. 4-Supervision or Touching Assistance-helper provides verbal cues and/or touching/steadying and/or contact guard assistance as patient completes activity. Assistance may be provided throughout the activity or intermittently. 3-Partial/Moderate Assistance-helper does LESS THAN HALF the effort. [place] lifts, holds or supports trunk or limbs, but provides less than half the effort. 2-Substantial/Maximal Assistance-helper does MORE THAN HALF the effort. [place] lifts or holds trunk or limbs and provides more than half the effort. 6-Oiuelgffg-lbtmle does ALL the effort. Patient does none of the effort to complete the activity. Or, the assistance of 2 or more helpers is required for the patient to complete the activity. If activity was not attempted, code reason: 7-Patient Refused. 9-Not Applicable-not attempted and the patient did not perform the activity before the current illness, exacerbation or injury. 10-Not Attempted due to Environmental Limitations-(lack of equipment, weather restraints, etc.). 88-Not Attempted due to Medical Conditions or Safety Concerns. Other Treatment RUE wrist/hand PROM exercises completed. Pt continues to demonstrate small improvements in R wrist ROM; flexion>extension and digits, extension>flexion. Exercises performed to pain tolerance. Proximal end of incision healing nicely. Small bandage over distal end near palm secondary to drainage previous date. Gentle massage around incision for scar management. Wrist splint replaced by OT following exercises. Pt able to perform AROM L elbow within ordered ROM restrictions (30-120 degrees). 2 sets, 15 reps. Education OT Patient Education: Correct positioning, Exercise program, Progress toward Goal/Update tx plan, Purpose of tx/functional activities, Reviewed precautions Teaching Recipient: Patient Teaching Methods: Demonstration, Discussion Response to Teaching: Verbalize Understanding, Return Demonstration, Reinfor cement Needed OT Short Term Goals Short Term Goals Time Frame: Mar 26, 2021 Eatin Oral hygiene: 4 Toileting hygiene: 3 Shower/bathe self: 3 Upper body dressin Lower body dressin Putting on/taking off footwear: 3 OT Recordist Goals Halfway Goals Time Frame: Apr 06, 2021 Eating (QC): 6 Oral Hygiene (QC): 5 Toileting Hygiene (QC): 4 Shower/Bathe Self (QC): 4 Upper Body Dressing (QC): 5 Lower Body Dressing (QC): 4 On/Off Footwear (QC): 4 1=Demonstrate adherence to instructed precautions during ADL tasks. 2=Patient will verbalize/demonstrate understanding of assistive devices/modifications for ADL. 3=Patient will improve strength/tolerance for activity to enable patient to perform ADL's. OT Education/Plan Problem List/Assessment Assessment: Decreased Activ Tolerance, Decreased Safety Aware, Decreased UE Strength, Dependent Transfers, Impaired Coordination, Impaired Funct Balance, Impaired I ADL's, Impaired Self-Care Skills, Restricted Funct UE ROM Discharge Recommendations Plan/Recommendations: Continue POC Treatment Plan/Plan of Care Treatment,Training & Education: Yes Patient would benefit from OT for education, treatment and training to promote independence in ADL's, mobility, safety and/or upper extremity function for ADL's. Plan of Care: ADL Retraining, Functional Mobility, Group Exercise/Act as Ind, Orthotic Fitting/Training, UE Funct Exercise/Act, W/C Management Training Treatment Duration: Apr 06, 2021 Frequency: At least 5 of 7 days/Wk (IRF) Estimated Hrs Per Day: 1.5 hours per day Agreement: Yes Rehab Potential: Fair Time/GCodes Start Time: 11:20 Stop Time: 11:50 Total Time Billed (hr/min): 30 Billed Treatment Time 1 visit, EX dewey NixonRukhsana reyes OT Mar 29, 2021 11:53
--- NOTE | 2021-03-29 16:07 | Physical Therapy Daily Note ---
PT Daily Note-Current Subjective Pt laying Supine in bed upon arrival. Pt agrees to PT and asks to complete Supine EX sirman. SLR, AB/ADD & HS for improved strength of R LE. Mental Status Patient Orientation: Person, Place, Time, Situation Attachments: Other-See Comments (Brace for L LE stump) Transfers SCALE: Activities may be completed with or without assistive devices. 3-Fbslmilvlb-dotacms completes the activity by him/herself with no assistance from a helper. 5-Set-up or Clean-up Assistance-helper sets up or cleans up; patient completes activity. [place] assists only prior to or following the activity. 4-Supervision or Touching Assistance-helper provides verbal cues and/or touching/steadying and/or contact guard assistance as patient completes activity. Assistance may be provided throughout the activity or intermittently. 3-Partial/Moderate Assistance-helper does LESS THAN HALF the effort. [place] lifts, holds or supports trunk or limbs, but provides less than half the effort. 2-Substantial/Maximal Assistance-helper does MORE THAN HALF the effort. [place] lifts or holds trunk or limbs and provides more than half the effort. 8-Rskwkwzno-rnqwaj does ALL the effort. Patient does none of the effort to complete the activity. Or, the assistance of 2 or more helpers is required for the patient to complete the activity. If activity was not attempted, code reason: 7-Patient Refused. 9-Not Applicable-not attempted and the patient did not perform the activity before the current illness, exacerbation or injury. 10-Not Attempted due to Environmental Limitations-(lack of equipment, weather restraints, etc.). 88-Not Attempted due to Medical Conditions or Safety Concerns. Lying to Sitting/Side of Bed(Q: 5 Weight Bearing Right Lower Extremity: Right Weight Bearing/Tolerated Left Lower Extremity: Left Non Weight Bearing NWB LLE AND LUE; MAY WEIGHT-BEAR THROUGH ELBOW ON RUE. WBAT ON RLE. Exercises Supine Ex: Ankle pumps, Quad Set, Glut sets, Heel Slides, Straight leg raise, Hip abd/add Supine Reps: 15 (4 sets of SLR, AB/ADD, & HS) Seated Therapy Exercises: Long arc quads, Hip flexion Seated Reps: 15 Treatments Pt completes Exercise both at Supine & Seated to comfort with RB as needed. Brace for R wrist is donned with assistance from COLLAR STITCHER. Pt given Volteran gel applied to elbows & neck as needed for discomfort by Nurse. Pt resting at EOB with call light in hand. Assessment Current Status: Good Progress Pt has improved with bed mobility with less need for assistance. Pt is motivated to gain strength so R LE simran. at the hip will support pt when standing so decreased need for assistance. PT Short Term Goals Short Term Goals Time Frame: Mar 25, 2021 Roll Left & Right: 6 Sit to lyin Lying to sitting on side of be: 6 Sit to stand: 4 Chair/pbn-nr-wppkv transfer: 4 Toilet transfer: 4 Wheel 50ft w/2 turns: 4 Wheel 150 feet: 4 PT Sba Underwriter Goals [facility] Goals PT Sba Underwriter Goals Time Frame: Apr 08, 2021 Roll Left & Right (QC): 6 Sit to Lying (QC): 6 Lying-Sitting on Side/Bed(QC): 6 Sit to Stand (QC): 6 Chair/Dff-xx-Ojbmo Xfer(QC): 6 Toilet Transfer (QC): 6 Car Transfer (QC): 6 Does the Patient Walk: No and Walking Goal NOT indicated Walk 10 feet (QC): 88 Walk 50ft with 2 Turns (QC): 88 Walk 150 ft (QC): 88 Walking 10ft on Uneven Surface: 88 1 Step (curb) (QC): 88 4 Steps (QC): 88 12 Steps (QC): 88 Picking up an Object (QC): 88 Wheel 50 feet with 2 turns (QC: 6 Type: Manual Wheel 150 feet: 6 PT Plan Problem List Problem List: Activity Tolerance, Functional Strength Treatment/Plan Treatment Plan: Continue Plan of Care Treatment Plan: Bed Mobility, Education, Functional Activity Krystin, Functional Strength, Group Therapy, Gait, Safety, Therapeutic Exercise, Transfers Treatment Duration: Apr 08, 2021 Frequency: 6 times per week Estimated Hrs Per Day: 1.5 hours per day Patient and/or Family Agrees t: Yes Safety Risks/Education Patient Education: Correct Positioning Teaching Recipient: Patient Teaching Methods: Discussion Response to Teaching: Verbalize Understanding Time/GCodes Time In: 1300 Time Out: 1345 Total Billed Treatment Time: 45 Total Billed Treatment 1, EX x2 (30m) & FA (15m) FRANDY CORNELIUS COLLAR STITCHER Mar 29, 2021 16:07
[2021-03-29] MEDS: ALPRAZolam 0.25 MG (XANAX) TAB PO PRN (19:21)
[2021-03-29] MEDS: traZODone 50 MG (DESYREL) TAB PO SCH (19:49)
[2021-03-29 19:50] VITALS: BP 103/64
[2021-03-29] MEDS: ZOLPIDEM 5 MG (AMBIEN) TAB PO PRN (19:50)
[2021-03-29] MEDS: diphenhydrAMINE 25 MG TAB (BENADRYL) PO PRN (19:50)
[2021-03-29] MEDS: MELATONIN 10 MG TABLET PO SCH (19:50)
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
[2021-03-30 07:42] VITALS: BP 109/60
[2021-03-30] MEDS: NICOTINE 21 MG (NICODERM) PATCH TD SCH (08:01)
[2021-03-30] MEDS: DICLOFENAC 1% GEL 100 GM (VOLTAREN) TUBE TOP SCH ×3 (08:01→21:37)
[2021-03-30] MEDS: VITAMIN D3 125 MCG (5,000 UNITS) CAPSULE PO SCH (08:01)
[2021-03-30] MEDS: NICOTINE PATCH REMOVAL TP SCH (08:01)
[2021-03-30] MEDS: SENNA W/DOCUSATE (SENOKOT S) TABLET PO SCH ×2 (08:23→20:23)
[2021-03-30] MEDS: BETAMETHASONE/CLOTRIM CREAM (LOTRISONE) 45 GM TP SCH ×2 (08:23→21:38)
[2021-03-30] MEDS: DOCUSATE SODIUM 100 MG (COLACE) CAP PO SCH ×2 (08:23→20:23)
[2021-03-30] MEDS: polyethylene glycoL POWDER 17 GM (MIRALAX) PACK PO SCH ×2 (08:24→20:23)
[2021-03-30] MEDS: MUPIROCIN 2% OINT 22 GM (BACTROBAN) TUBE TOP SCH ×2 (08:24→21:38)
--- NOTE | 2021-03-30 08:44 | Physical Therapy Daily Note ---
PT Daily Note-Current Subjective Pt in bed upon arrival and agrees to co-treat. Co-treat with 2 skilled clinicians d/t pt poor mobility, transfers, weakness, safety, and decrease risk of falls. Mental Status Patient Orientation: Person, Place, Time, Situation Transfers SCALE: Activities may be completed with or without assistive devices. 1-Zdjyutttow-obtgzxg completes the activity by him/herself with no assistance from a helper. 5-Set-up or Clean-up Assistance-helper sets up or cleans up; patient completes activity. [place] assists only prior to or following the activity. 4-Supervision or Touching Assistance-helper provides verbal cues and/or touching/steadying and/or contact guard assistance as patient completes activity. Assistance may be provided throughout the activity or intermittently. 3-Partial/Moderate Assistance-helper does LESS THAN HALF the effort. [place] lifts, holds or supports trunk or limbs, but provides less than half the effort. 2-Substantial/Maximal Assistance-helper does MORE THAN HALF the effort. [place] lifts or holds trunk or limbs and provides more than half the effort. 4-Gznnrsmqv-sghyvd does ALL the effort. Patient does none of the effort to complete the activity. Or, the assistance of 2 or more helpers is required for the patient to complete the activity. If activity was not attempted, code reason: 7-Patient Refused. 9-Not Applicable-not attempted and the patient did not perform the activity before the current illness, exacerbation or injury. 10-Not Attempted due to Environmental Limitations-(lack of equipment, weather restraints, etc.). 88-Not Attempted due to Medical Conditions or Safety Concerns. Lying to Sitting/Side of Bed(Q: 6 Sit to Stand (QC): 3 Chair/Vsj-vd-Hlpgd Xfer(QC): 3 Weight Bearing Right Lower Extremity: Right Weight Bearing/Tolerated Left Lower Extremity: Left Non Weight Bearing NWB LLE AND LUE; MAY WEIGHT-BEAR THROUGH ELBOW ON RUE. WBAT ON RLE. Wheelchair Training Does the Pt Use a Wheelchair?: Yes Wheel 50 ft with 2 turns (QC): 4 Wheel 150 ft (QC): 4 Type of Wheelchair: Manual VC for obstacle avoidance when propelling backwards Treatments OT focused on UE strengthening, positioning, and functional mobility. PT focused on transfers, mobility, and LE strengthening/positioning. Pt supine to sit and SPT to WC. Pt propels self in WC going backward 200', then attempts to propel self forward 100'. Pt requires more time with forward propulsion. Pt enters therapy gym and completes 3 sit to stands, using R elbow on mat for support and Angel for stability. Pt holds stance 2:45, 2:55, and 3:35. Pt completes standing balance activity w/ L UE during second 2 bouts (see OT note). PT exits tx at this time, pt remains with OT in gym with all needs met. Assessment Current Status: Poor Progress Pt has poor increase in mobility PT Short Term Goals Short Term Goals Time Frame: Mar 25, 2021 Roll Left & Right: 6 Sit to lyin Lying to sitting on side of be: 6 Sit to stand: 4 Chair/rwj-ap-oluwr transfer: 4 Toilet transfer: 4 Wheel 50ft w/2 turns: 4 Wheel 150 feet: 4 PT Review Manager Goals Intermediate Goals PT Review Manager Goals Time Frame: Apr 08, 2021 Roll Left & Right (QC): 6 Sit to Lying (QC): 6 Lying-Sitting on Side/Bed(QC): 6 Sit to Stand (QC): 6 Chair/Uwt-hc-Qraaq Xfer(QC): 6 Toilet Transfer (QC): 6 Car Transfer (QC): 6 Does the Patient Walk: No and Walking Goal NOT indicated Walk 10 feet (QC): 88 Walk 50ft with 2 Turns (QC): 88 Walk 150 ft (QC): 88 Walking 10ft on Uneven Surface: 88 1 Step (curb) (QC): 88 4 Steps (QC): 88 12 Steps (QC): 88 Picking up an Object (QC): 88 Wheel 50 feet with 2 turns (QC: 6 Type: Manual Wheel 150 feet: 6 PT Plan Treatment/Plan Treatment Plan: Continue Plan of Care Treatment Plan: Bed Mobility, Education, Functional Activity Krystin, Functional Strength, Group Therapy, Gait, Safety, Therapeutic Exercise, Transfers Treatment Duration: Apr 08, 2021 Frequency: 6 times per week Estimated Hrs Per Day: 1.5 hours per day Patient and/or Family Agrees t: Yes Time/GCodes Time In: 800 Time Out: 845 Total Billed Treatment Time: 45 Total Billed Treatment 1, TRE, FA NORI Galvez DATABASE ADMINISTRATOR Mar 30, 2021 08:44
--- NOTE | 2021-03-30 08:52 | Occupational Ther Daily Note ---
OT Current Status-Daily Note Subjective Pt alert, sitting at EOB when OT entered. Pt agreed to therapy. No c/o pain reported. Pt declined completing oral hygiene. Mental Status/Objective Patient Orientation: Person, Place, Time, Situation ADL-Treatment Therapy Code Descriptions/Definitions Functional [place] Measure: 0=Not Assessed/NA 4=Minimal Assistance 1=Total Assistance 5=Supervision or Setup 2=Maximal Assistance 6=Modified [place] 3=Moderate Assistance 7=Complete IndependenceSCALE: Activities may be completed with or without assistive devices. 3-Jectkbqyek-upddyck completes the activity by him/herself with no assistance from a helper. 5-Set-up or Clean-up Assistance-helper sets up or cleans up; patient completes activity. [place] assists only prior to or following the activity. 4-Supervision or Touching Assistance-helper provides verbal cues and/or touching/steadying and/or contact guard assistance as patient completes activity. Assistance may be provided throughout the activity or intermittently. 3-Partial/Moderate Assistance-helper does LESS THAN HALF the effort. [place] lifts, holds or supports trunk or limbs, but provides less than half the effort. 2-Substantial/Maximal Assistance-helper does MORE THAN HALF the effort. [place] lifts or holds trunk or limbs and provides more than half the effort. 9-Khnmtmfyl-sxrmgi does ALL the effort. Patient does none of the effort to complete the activity. Or, the assistance of 2 or more helpers is required for the patient to complete the activity. If activity was not attempted, code reason: 7-Patient Refused. 9-Not Applicable-not attempted and the patient did not perform the activity before the current illness, exacerbation or injury. 10-Not Attempted due to Environmental Limitations-(lack of equipment, weather restraints, etc.). 88-Not Attempted due to Medical Conditions or Safety Concerns. Other Treatment Co-treat with PT ([id number]) due to poor endurance, transfers, pain, and high fall risk. PT focusing on transfers, w/c mobility, and LE strengthening/postioning while OT focuses on hand placement during transfers, UE strenghting, and safe/functional w/c mobility. Pt required increase time to don leg brace due to velco straps. See PT notes on transfers. Pt participated in functional w/c mobility of propelling self backwards/forwards throughout [employer] [facility] to gym to increase safety and independence with w/c mobility in home. Pt fatigued quickly when going forward due to decreased activity tolerance. Once in gym, pt completed x3 sit-stand to increase standing tolerance. See PT notes for time on standing. While standing, pt participated in LUE ROM /hand exercise task of grasping resistive clothespin from least to most resistive and reaching to place onto rack to increase LUE crane follower strength for improved independence with opening/closing fasteners. Pt then propelled self backwards back to room. Pt SPT from w/c to EOB with Mod A. Pt transferred from EOB-supine with supervision. A fter therapy, pt laying in bed. All needs met and call light in reach. Education OT Patient Education: Correct positioning, Energy conservation, Purpose of tx/functional activities, Transfer techniques Teaching Recipient: Patient Teaching Methods: Demonstration, Discussion Response to Teaching: Verbalize Understanding, Return Demonstration OT Short Term Goals Short Term Goals Time Frame: Mar 26, 2021 Eatin Oral hygiene: 4 Toileting hygiene: 3 Shower/bathe self: 3 Upper body dressin Lower body dressin Putting on/taking off footwear: 3 OT Correction Goals Correction Goals Time Frame: Apr 06, 2021 Eating (QC): 6 Oral Hygiene (QC): 5 Toileting Hygiene (QC): 4 Shower/Bathe Self (QC): 4 Upper Body Dressing (QC): 5 Lower Body Dressing (QC): 4 On/Off Footwear (QC): 4 1=Demonstrate adherence to instructed precautions during ADL tasks. 2=Patient will verbalize/demonstrate understanding of assistive devices/modifications for ADL. 3=Patient will improve strength/tolerance for activity to enable patient to perform ADL's. OT Education/Plan Problem List/Assessment Assessment: Decreased Activ Tolerance, Decreased UE Strength, Impaired Self- Care Skills Discharge Recommendations Plan/Recommendations: Continue POC Treatment Plan/Plan of Care Patient would benefit from OT for education, treatment and training to promote independence in ADL's, mobility, safety and/or upper extremity function for ADL's. Plan of Care: ADL Retraining, Functional Mobility, Group Exercise/Act as Ind, Orthotic Fitting/Training, UE Funct Exercise/Act, W/C Management Training Treatment Duration: Apr 06, 2021 Frequency: At least 5 of 7 days/Wk (IRF) Estimated Hrs Per Day: 1.5 hours per day Agreement: Yes Rehab Potential: Fair Time/GCodes Start Time: 08:00 Stop Time: 09:00 Total Time Billed (hr/min): 60 Billed Treatment Time 1 visit - FA 3( 45 mins) EX (15 mins) Co treat with PT ([id number]) individual ([phone]) LUIS ANGEL CANAS Mar 30, 2021 08:52
[2021-03-30] MEDS: ALPRAZolam 0.25 MG (XANAX) TAB PO PRN ×2 (13:38→21:38)
--- NOTE | 2021-03-30 14:43 | Therapy Group Daily Note ---
Therapy Daily Group Note Patient Education Topic Home Safety, Fall Prevention, Other List Below (Floor transfer after fall) Session Ratio (pt:therapist): 3:1 Goal of Session: Education on ARU Expectations, Home Safety Strategies, UE/LE Strengthing Goal Met for this Session: Yes Pt Benefit of Group: Contributions to Others, F/U Use of Strategies @Home, Increased Functional Safety, Increased Functional Strength, Improved Cognition, Recognition of Peers, Socialization Other/Notes Pt propelled w/c to [facility] area for OT/PT group. Group consisted of introductions (name, place living, memory from childhood), socialization, seated UE/LE exercises, and educational topics consisiting of fall risk/prevention,education of floor transfer after fall, and home safety. Pt introduced self appropriately, actively listened to peers. Pt able to complete B UE/LE seated exercises except L lower leg exercises due to BKA, tolerated well. Pt acknowledged understanding of educational topics by verbalizing understanding and giving personal stories. Pt participated in a cognitive word activity After session, pt laying in bed. Call light/phone in reach. All needs met in room. Start Time: 13:00 Stop Time: 14:15 Total Billed Treatment Time: 75 Total Billed Treatment 1 , GRP (75 mins) LUIS ANGEL CANAS Mar 30, 2021 14:43
[2021-03-30 20:20] VITALS: BP 119/72
[2021-03-30] MEDS: ZOLPIDEM 5 MG (AMBIEN) TAB PO PRN (21:38)
[2021-03-30] MEDS: traZODone 50 MG (DESYREL) TAB PO SCH (21:38)
[2021-03-30] MEDS: MELATONIN 10 MG TABLET PO SCH (21:38)
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
[2021-03-31] MEDS: NICOTINE 21 MG (NICODERM) PATCH TD SCH (08:31)
[2021-03-31] MEDS: VITAMIN D3 125 MCG (5,000 UNITS) CAPSULE PO SCH (08:31)
[2021-03-31] MEDS: NICOTINE PATCH REMOVAL TP SCH (08:31)
[2021-03-31] MEDS: MUPIROCIN 2% OINT 22 GM (BACTROBAN) TUBE TOP SCH ×2 (08:32→20:52)
[2021-03-31] MEDS: DICLOFENAC 1% GEL 100 GM (VOLTAREN) TUBE TOP SCH ×3 (08:32→20:51)
[2021-03-31] MEDS: BETAMETHASONE/CLOTRIM CREAM (LOTRISONE) 45 GM TP SCH ×2 (08:32→20:52)
[2021-03-31 08:34] VITALS: BP 104/64
--- NOTE | 2021-03-31 09:16 | Physical Therapy Daily Note ---
PT Daily Note-Current Subjective Pt in bed upon arrival and agrees to tx. Pt ready to leave on Friday Mental Status Patient Orientation: Person, Place, Time, Situation Transfers SCALE: Activities may be completed with or without assistive devices. 0-Dfyyxqztls-jcxlwha completes the activity by him/herself with no assistance from a helper. 5-Set-up or Clean-up Assistance-helper sets up or cleans up; patient completes activity. [place] assists only prior to or following the activity. 4-Supervision or Touching Assistance-helper provides verbal cues and/or touching/steadying and/or contact guard assistance as patient completes activity. Assistance may be provided throughout the activity or intermittently. 3-Partial/Moderate Assistance-helper does LESS THAN HALF the effort. [place] lifts, holds or supports trunk or limbs, but provides less than half the effort. 2-Substantial/Maximal Assistance-helper does MORE THAN HALF the effort. [place] lifts or holds trunk or limbs and provides more than half the effort. 9-Pmgmyghgh-hhepex does ALL the effort. Patient does none of the effort to complete the activity. Or, the assistance of 2 or more helpers is required for the patient to complete the activity. If activity was not attempted, code reason: 7-Patient Refused. 9-Not Applicable-not attempted and the patient did not perform the activity before the current illness, exacerbation or injury. 10-Not Attempted due to Environmental Limitations-(lack of equipment, weather restraints, etc.). 88-Not Attempted due to Medical Conditions or Safety Concerns. Roll Left & Right (QC): 6 Sit to Lying (QC): 6 Lying to Sitting/Side of Bed(Q: 6 Sit to Stand (QC): 3 Chair/Usd-hf-Nktzg Xfer(QC): 3 Toilet Transfer (QC): 3 Car Transfer (QC): 3 Weight Bearing Right Lower Extremity: Right Weight Bearing/Tolerated Left Lower Extremity: Left Non Weight Bearing NWB LLE AND LUE; MAY WEIGHT-BEAR THROUGH ELBOW ON RUE. WBAT ON RLE. Gait Training Does the Patient Walk?: No and Walking Goal NOT indicated Walk 10 feet (QC): 88 Walk 50 ft with 2 Turns(QC): 88 Walk 150 ft (QC): 88 Walking 10ft/uneven surface-QC: 88 Wheelchair Training Does the Pt Use a Wheelchair?: Yes Wheel 50 ft with 2 turns (QC): 5 Wheel 150 ft (QC): 5 Type of Wheelchair: Manual Stair Training 1 Step (curb) (QC): 88 4 Steps (QC): 88 12 Steps (QC): 88 Balance Picking up an Object (QC): 6 Treatments Pt in bed and completes bed mobility, able to complete Indep. Pt then SPT to WC ModA and propels self backwards going 150' and forwards 50' SBA. Pt completes car transfer ModA, then is asked to pick a pen up from floor. Pt able to complete while seated in WC safely. Pt then transfers back to bed and is left with all needs met, call light in hand. Assessment Current Status: Fair Progress Pt unable to complete any amb/stair training d/t precautions. PT Short Term Goals Short Term Goals Time Frame: Mar 25, 2021 Roll Left & Right: 6 Sit to lyin Lying to sitting on side of be: 6 Sit to stand: 4 Chair/jfo-qu-cwvpy transfer: 4 Toilet transfer: 4 Wheel 50ft w/2 turns: 4 Wheel 150 feet: 4 PT Assisted Goals Inspecting Machine Adjuster Goals PT Inspecting Machine Adjuster Goals Time Frame: Apr 08, 2021 Roll Left & Right (QC): 6 Sit to Lying (QC): 6 Lying-Sitting on Side/Bed(QC): 6 Sit to Stand (QC): 6 Chair/Uip-qt-Sgnxc Xfer(QC): 6 Toilet Transfer (QC): 6 Car Transfer (QC): 6 Does the Patient Walk: No and Walking Goal NOT indicated Walk 10 feet (QC): 88 Walk 50ft with 2 Turns (QC): 88 Walk 150 ft (QC): 88 Walking 10ft on Uneven Surface: 88 1 Step (curb) (QC): 88 4 Steps (QC): 88 12 Steps (QC): 88 Picking up an Object (QC): 88 Wheel 50 feet with 2 turns (QC: 6 Type: Manual Wheel 150 feet: 6 PT Plan Treatment/Plan Treatment Plan: Continue Plan of Care Treatment Plan: Bed Mobility, Education, Functional Activity Krystin, Functional Strength, Group Therapy, Gait, Safety, Therapeutic Exercise, Transfers Treatment Duration: Apr 08, 2021 Frequency: 6 times per week Estimated Hrs Per Day: 1.5 hours per day Patient and/or Family Agrees t: Yes Time/GCodes Time In: 807 Time Out: 822 Total Billed Treatment Time: 15 Total Billed Treatment 1MATTHEW SYDNEY PTA Mar 31, 2021 09:16
[2021-03-31] MEDS: DOCUSATE SODIUM 100 MG (COLACE) CAP PO SCH ×2 (09:18→19:42)
[2021-03-31] MEDS: polyethylene glycoL POWDER 17 GM (MIRALAX) PACK PO SCH ×2 (09:18→19:42)
[2021-03-31] MEDS: SENNA W/DOCUSATE (SENOKOT S) TABLET PO SCH ×2 (09:18→19:43)
[2021-03-31 20:00] VITALS: BP 122/80
[2021-03-31] MEDS: traZODone 50 MG (DESYREL) TAB PO SCH (20:53)
[2021-03-31] MEDS: MELATONIN 10 MG TABLET PO SCH (20:53)
[2021-03-31] MEDS: ALPRAZolam 0.25 MG (XANAX) TAB PO PRN (20:53)
[2021-03-31] MEDS: ZOLPIDEM 5 MG (AMBIEN) TAB PO PRN (20:53)
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
[2021-04-01 07:30] VITALS: BP 111/74
[2021-04-01] MEDS: BETAMETHASONE/CLOTRIM CREAM (LOTRISONE) 45 GM TP SCH ×2 (08:30→21:05)
[2021-04-01] MEDS: NICOTINE 21 MG (NICODERM) PATCH TD SCH (08:30)
[2021-04-01] MEDS: MUPIROCIN 2% OINT 22 GM (BACTROBAN) TUBE TOP SCH ×2 (08:30→21:05)
[2021-04-01] MEDS: NICOTINE PATCH REMOVAL TP SCH (08:30)
[2021-04-01] MEDS: VITAMIN D3 125 MCG (5,000 UNITS) CAPSULE PO SCH (08:30)
[2021-04-01] MEDS: DICLOFENAC 1% GEL 100 GM (VOLTAREN) TUBE TOP SCH ×3 (08:31→21:05)
[2021-04-01] MEDS: polyethylene glycoL POWDER 17 GM (MIRALAX) PACK PO SCH ×2 (09:35→19:43)
[2021-04-01] MEDS: DOCUSATE SODIUM 100 MG (COLACE) CAP PO SCH ×2 (09:35→19:43)
[2021-04-01] MEDS: SENNA W/DOCUSATE (SENOKOT S) TABLET PO SCH ×2 (09:35→19:43)
[2021-04-01 19:00] VITALS: BP 115/68
[2021-04-01] MEDS: MELATONIN 10 MG TABLET PO SCH (21:05)
[2021-04-01] MEDS: ZOLPIDEM 5 MG (AMBIEN) TAB PO PRN (21:05)
[2021-04-01] MEDS: traZODone 50 MG (DESYREL) TAB PO SCH (21:05)
[2021-04-01] MEDS: ALPRAZolam 0.25 MG (XANAX) TAB PO PRN (21:05)
[2021-04-02 06:43] LABS: BASOPHILS % (AUTO) 0 % (0-10); EOSINOPHILS # (AUTO) 0.2 10^3/uL (0.0-0.3); EOSINOPHILS % (AUTO) 4 % (0-10); HEMATOCRIT 30 % (40-54); HEMOGLOBIN 9.6 g/dL (13.3-17.7); LYMPHOCYTES # (AUTO) 1.7 10^3/uL (1.0-4.0); LYMPHOCYTES % (AUTO) 32 % (12-44); MEAN CORPUSCULAR HEMOGLOBIN 29 pg (25-34); MEAN CORPUSCULAR HGB CONC 32 g/dL (32-36); MEAN CORPUSCULAR VOLUME 91 fL (80-99); MEAN PLATELET VOLUME 10.5 fL (9.0-12.2); MONOCYTES # (AUTO) 0.8 10^3/uL (0.0-1.0); MONOCYTES % (AUTO) 15 % (0-12); NEUTROPHILS # (AUTO) 2.6 10^3/uL (1.8-7.8); NEUTROPHILS % (AUTO) 49 % (42-75); PLATELET COUNT 197 10^3/uL (130-400); WHITE BLOOD COUNT 5.4 10^3/uL (4.3-11.0)
[2021-04-02 06:51] LABS: ALBUMIN 3.3 GM/DL (3.2-4.5); POTASSIUM 3.6 MMOL/L (3.6-5.0)
[2021-04-02 06:52] LABS: CALCIUM 9.1 MG/DL (8.5-10.1)
[2021-04-02 06:54] LABS: TOTAL PROTEIN 5.7 GM/DL (6.4-8.2)
[2021-04-02 06:55] LABS: BILIRUBIN,TOTAL 0.3 MG/DL (0.1-1.0)
[2021-04-02 06:57] LABS: CREATININE SERUM 0.63 MG/DL (0.60-1.30)
[2021-04-02 07:26] VITALS: BP 101/72
[2021-04-02] MEDS: VITAMIN D3 125 MCG (5,000 UNITS) CAPSULE PO SCH (08:42)
[2021-04-02] MEDS: NICOTINE 21 MG (NICODERM) PATCH TD SCH (08:43)
[2021-04-02] MEDS: NICOTINE PATCH REMOVAL TP SCH (08:43)
[2021-04-02] MEDS: DOCUSATE SODIUM 100 MG (COLACE) CAP PO SCH (08:56)
[2021-04-02] MEDS: SENNA W/DOCUSATE (SENOKOT S) TABLET PO SCH (08:58)
[2021-04-02] MEDS: polyethylene glycoL POWDER 17 GM (MIRALAX) PACK PO SCH (08:58)
[2021-04-02] MEDS: MUPIROCIN 2% OINT 22 GM (BACTROBAN) TUBE TOP SCH (09:04)
[2021-04-02] MEDS: BETAMETHASONE/CLOTRIM CREAM (LOTRISONE) 45 GM TP SCH (09:05)
[2021-04-02] MEDS: DICLOFENAC 1% GEL 100 GM (VOLTAREN) TUBE TOP SCH (09:05)
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
[2021-04-02] MEDS ORDERED: CALC-250 PO (10:03)
[2021-04-02] MEDS ORDERED: TRM50T PO (10:03)
[2021-04-02] MEDS ORDERED: DICL100G13 TOP (10:03)
[2021-04-02] MEDS ORDERED: MELA10TA2 PO (10:03)
[2021-04-02] MEDS ORDERED: CLOT15CR6 TP (10:03)
[2021-04-02] MEDS ORDERED: NICO1PAT34 TD (10:03)
[2021-04-02] MEDS ORDERED: ALPR.25T PO (10:03)
[2021-04-02] MEDS ORDERED: OXC5T PO (10:03)
[2021-04-02] MEDS ORDERED: SENN1TAB76 PO (10:03)
[2021-04-02] MEDS ORDERED: MUPI22OI2 TOP (10:03)
[2021-04-02] MEDS ORDERED: ZOLP5TAB7 PO (10:03)
[2021-04-02] MEDS ORDERED: TRZ50T PO (10:03)
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
[2021-04-02 11:20] VITALS: BP 101/72
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
--- NOTE | 2021-04-02 13:00 | Occupational Ther Daily Note ---
OT Current Status-Daily Note Subjective Pt alert, laying in bed when therapy entered. Pt agreed to therapy. No c/o pain reported. Mental Status/Objective Patient Orientation: Person, Place, Time, Situation ADL-Treatment Pt agreed to shower. Increase time due to wrap RUE and LLE. Pt transferred from supine-EOB with supervision. SPT from EOB to w/c with Mod A. Pt propelled self to shower in w/c. SPT from w/c to shower with Mod A. Pt doffed UB dressing independently. Pt doffed LB dressing while seated in w/c by leaning side to side with supervision for safety. Pt cleansed/dried RUE, RUE, chest, abdomen, emelyn area. Pt required assist from OT to cleanse LUE and buttocks while seated in shower bench. Pt required shower bench, grab bars, and hand held shower head to complete shower safely. Pt transferred to w/c by scooting off shower bench with supervision for safety. After set up, pt donned shirt. After set up, pt able to thread RLE and residual limb without assist or use of AE, extra time only. Pt able to hike pants by leaning side to side while seated in w/c. After set up, pt donned socks using sock aid. After set up, pt completed oral hygiene of cleansing dentures and putting them while seated in w/c. 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 All needs met. Therapy Code Descriptions/Definitions Functional [place] Measure: 0=Not Assessed/NA 4=Minimal Assistance 1=Total Assistance 5=Supervision or Setup 2=Maximal Assistance 6=Modified [place] 3=Moderate Assistance 7=Complete IndependenceSCALE: Activities may be completed with or without assistive devices. 8-Rhqdeqyigm-[id number] completes the activity by him/herself with no assistance from a helper. 5-Set-up or Clean-up Assistance-helper sets up or cleans up; patient completes activity. [place] assists only prior to or following the activity. 4-Supervision or Touching Assistance-helper provides verbal cues and/or touching/steadying and/or contact guard assistance as patient completes activity. Assistance may be provided throughout the activity or intermittently. 3-Partial/Moderate Assistance-helper does LESS THAN HALF the effort. [place] lifts, holds or supports trunk or limbs, but provides less than half the effort. 2-Substantial/Maximal Assistance-helper does MORE THAN HALF the effort. [place] lifts or holds trunk or limbs and provides more than half the effort. 8-Anjjogjcq-tfrapz does ALL the effort. Patient does none of the effort to complete the activity. Or, the assistance of 2 or more helpers is required for the patient to complete the activity. If activity was not attempted, code reason: 7-Patient Refused. 9-Not Applicable-not attempted and the patient did not perform the activity before the current illness, exacerbation or injury. 10-Not Attempted due to Environmental Limitations-(lack of equipment, weather restraints, etc.). 88-Not Attempted due to Medical Conditions or Safety Concerns. Eating (QC): 6 (Per clinical judgement) Oral Hygiene (QC): 5 Shower/Bathe Self (QC): 3 Upper Body Dressing (QC): 5 Lower Body Dressing (QC): 5 On/Off Footwear: 5 Toileting Hygiene (QC): 4 Toilet Transfer (QC): 4 Education OT Patient Education: Correct positioning, Energy conservation, Transfer techniques Teaching Recipient: Patient Teaching Methods: Demonstration, Discussion Response to Teaching: Verbalize Understanding, Return Demonstration OT Short Term Goals Short Term Goals Time Frame: Mar 26, 2021 Eatin Oral hygiene: 4 Toileting hygiene: 3 Shower/bathe self: 3 Upper body dressin Lower body dressin Putting on/taking off footwear: 3 OT Care Home Goals Dry Ice Maker Goals Time Frame: Apr 06, 2021 Eating (QC): 6 (Met, per clincal judgemnt.) Oral Hygiene (QC): 5 (Met) Toileting Hygiene (QC): 4 (Met, per clinical judgement) Shower/Bathe Self (QC): 4 (not met, required assist to cleanse LUE and buttocks.) Upper Body Dressing (QC): 5 (Met) Lower Body Dressing (QC): 4 (Met, pt able to complete after set up.) On/Off Footwear (QC): 4 (Met, pt able to complete after set up.) 1=Demonstrate adherence to instructed precautions during ADL tasks. 2=Patient will verbalize/demonstrate understanding of assistive devices/modifications for ADL. 3=Patient will improve strength/tolerance for activity to enable patient to perform ADL's. OT Education/Plan Problem List/Assessment Assessment: Decreased Activ Tolerance, Decreased UE Strength, Impaired Self- Care Skills Discharge Recommendations Plan/Recommendations: Continue POC Treatment Plan/Plan of Care Patient would benefit from OT for education, treatment and training to promote independence in ADL's, mobility, safety and/or upper extremity function for ADL's. Plan of Care: ADL Retraining, Functional Mobility, Group Exercise/Act as Ind, Orthotic Fitting/Training, UE Funct Exercise/Act, W/C Management Training Treatment Duration: Apr 06, 2021 Frequency: At least 5 of 7 days/Wk (IRF) Estimated Hrs Per Day: 1.5 hours per day Agreement: Yes Rehab Potential: Fair Time/GCodes Start Time: 09:00 Stop Time: 10:00 Total Time Billed (hr/min): 60 Billed Treatment Time 1 visit -ADL 4 (60 mins) LUIS ANGEL CANAS Apr 02, 2021 13:00
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
== END 2021-04-02 11:26 | disposition home health service (06) | DRG 949 ==
PROVIDERS: ADMIT Internal Medicine; ATTEND Internal Medicine
DX: S06.6X9D Traumatic subarachnoid hemorrhage with loss of consciousness of unspecified duration, subsequent encounter (principal); T87.44 Infection of amputation stump, left lower extremity; S02.91XD Unspecified fracture of skull, subsequent encounter for fracture with routine healing; S32.502D Unspecified fracture of left pubis, subsequent encounter for fracture with routine healing; S32.501D Unspecified fracture of right pubis, subsequent encounter for fracture with routine healing; S62.101D Fracture of unspecified carpal bone, right wrist, subsequent encounter for fracture with routine healing; S42.402D Unspecified fracture of lower end of left humerus, subsequent encounter for fracture with routine healing; B95.2 Enterococcus as the cause of diseases classified elsewhere; L89.152 Pressure ulcer of sacral region, stage 2; B37.2 Candidiasis of skin and nail; F17.200 Nicotine dependence, unspecified, uncomplicated; G62.9 Polyneuropathy, unspecified; B35.1 Tinea unguium; L85.3 Xerosis cutis; M21.541 Acquired clubfoot, right foot; G47.00 Insomnia, unspecified; K59.00 Constipation, unspecified; V29.9XXD Motorcycle rider (driver) (passenger) injured in unspecified traffic accident, subsequent encounter
CPT/HCPCS: 36415; 73552; 73560; 73590; 80053; 82306; 85025; 87070; 87075; 87077; 87186; 87205; 94760